=== PATIENT | male | born 1950 | race Caucasian/White ===

== ENCOUNTER 2019-11-04 10:12 | Outpatient (CLI) | payer OTHER, SELFPAY ==
--- NOTE | 2019-11-04 10:19 | USCV_ITS ---
Nash Cox Age: 69 Gender: M : 1950 Exam Date: 11/04/2019 10:32 Ordering Phys: Mally Neal MD Technologist: Katelyn Traore [place]am [place] [facility] [place]: SCREENING HISTORY: Screening Diameter (cm) AP x Transverse x Length Velocity (cm/s) Waveform Prox Aorta: 1.97 x 1.97 x 117.20 Mid Aorta: 1.90 x 1.61 x 89.40 Distal Aorta: 1.76 x 1.61 x 134.70 Right Iliac Prox: 1.18 x 1.17 x 131.50 Left Iliac Prox: 1.05 x 1.12 x 151.70 Stent Prox Landing x x Aneurysmal Sac Max x x Lt Lat Sac Dim Rt Lat Sac Dim Stent Dist Landing x x Right Iliac Stent x x Left Iliac Stent x x Right Renal Art Left Renal Art FINDINGS: Normal abdominal aortic dimensions Moderate diffuse plaques in the abdominal aorta Moderate plaques in the proximal common iliac arteries bilaterally CONCLUSIONS 1. No evidence of any abdominal aortic aneurysm 2. Moderate diffuse plaques in the abdominal aorta. 3. Moderate plaques at the proximal common iliac arteries bilaterally Dr Joann Kamara MD FAC (Electronically Signed) Final Date: 04 November 2019 17:28 S
--- NOTE | 2019-11-04 11:00 | USCV_ITS ---
Nash Cox Age: 69 Gender: M : 1950 Exam Date: 11/04/2019 10:47 Ordering Phys: Joann Kamara MD ([email or web address]) Technologist: Katelyn Traore [place] [facility] [place]: RECHECK MV REPLACEMENT AND AI AND EF BP: 130 / 55 HR: 79 Rhythm: Sinus Technical Quality: MEASUREMENTS (Male / Female) Normal Values 2D ECHO LV Diastolic Diameter PLAX 7.0 cm 4.2 - 5.9 / 3.9 - 5.3 cm LV Systolic Diameter PLAX 6.2 cm LV Chamber Size 5.4 cm IVS Diastolic Thickness 1.4 cm 0.6 - 1.0 / 0.6 - 0.9 cm IVS Systolic Thickness 1.5 cm LVPW Diastolic Thickness 1.5 cm 0.6 - 1.0 / 0.6 - 0.9 cm LVPW Systolic Thickness 1.7 cm RV Chamber Size 3.5 cm LVOT Diameter 2.1 cm LV Ejection Fraction 2D Teich 23.3 % LV Ejection Fraction MOD 2C -4.6 % LV Ejection Fraction 2C AL -7.4 % LA Diameter 4.5 cm LA Width 5.7 cm LA Height 5.6 cm RA Width 3.6 cm RA Height 5.5 cm Aorta at Sinotubular Diameter 4.4 cm M-MODE LV Diastolic Diameter MM 7.6 cm 4.2 - 5.9 / 3.9 - 5.3 cm LV Systolic Diameter MM 6.1 cm LV Ejection Fraction MM Teich 38.4 % IVS Diastolic Thickness MM 1.4 cm 0.6 - 1.0 / 0.6 - 0.9 cm IVS Systolic Thickness MM 1.7 cm LVPW Diastolic Thickness MM 1.1 cm 0.6 - 1.0 / 0.6 - 0.9 cm LVPW Systolic Thickness MM 1.7 cm RV Diastolic Diameter MM 1.6 cm Aortic Annulus Diameter 4.7 cm LA Ao Ratio MM 1.0 DOPPLER AV Peak Velocity 256.0 cm/s LVOT Peak Velocity 118.0 cm/s AV Area Cont Eq vti 1.1 cm squared AV Area Cont Eq pk 1.6 cm squared MV Area PHT 6.9 cm squared Mitral E to A Ratio 1.1 MV E' Velocity 163.0 cm/s TR Peak Velocity 237.7 cm/s TR Peak Gradient 22.6 mmHg TR Mean Velocity 170.9 cm/s TR Mean Gradient 13.1 mmHg TR Velocity Time Integral 62.6 cm TV Peak E Velocity 65.0 cm/s Right Atrial Pressure 3.0 mmHg Pulmonary Artery Systolic Pressu 25.6 mmHg FINDINGS Left Ventricle Moderately dilated LV cavity. Diffuse hypokinesia of the left ventricle. LV ejection fraction around 25% Right Ventricle Appears to be of normal size ejection fraction Right Atrium Mildly dilated Left Atrium Moderately increased left atrial size. Mitral Valve Bioprosthetic valve at the mitral position appears to be well- seated Aortic Valve Thickened aortic valve. Moderately severe aortic regurgitation. Appears to have multiple regurgitant jets Tricuspid Valve Mild tricuspid valve regurgitation. Pulmonic Valve Pulmonic valve not well visualized. Pericardium No pericardial effusion. Aorta Normal aortic annulus size. CONCLUSIONS 1. Moderately dilated LV cavity with an ejection fraction of 25%. 2. Diffuse hypokinesia left ventricle. 3. Moderately dilated left atrium and mildly dilated right atrium. 4. Bioprosthetic valve the mitral position appears to be well- seated. Mitral valve area by pressure half-time was 6.9 cm squared 5. Thickened aortic valve with moderately severe aortic regurgitation 4. Mild tricuspid valve regurgitation. 5. Estimated pulmonary artery peak systolic pressure of 26 mmHg There is no pericardial effusion. There are no intracardiac masses. Compared to the study from 04/04/2015, the LV cavity appears to be more dilated with worsening of the LV systolic function, from 40 % to 25%; the mitral valve replacement is new. Dr Joann Kamara MD FAC (Electronically Signed) Final Date: 04 November 2019 15:25 S
== END 2019-11-04 10:13 | disposition home or self-care (01) ==
LOC: RAD 10:16
PROVIDERS: PCP Family Medicine; Visit Provider Family Medicine
DX: I35.1 Nonrheumatic aortic (valve) insufficiency (principal); Z95.2 Presence of prosthetic heart valve; I07.1 Rheumatic tricuspid insufficiency; Z01.89 Encounter for other specified special examinations
CPT/HCPCS: 76706; 93306

== ENCOUNTER → 2019-12-22 14:52 | Outpatient (BNVA) | payer MEDICARE, SELFPAY | PROVIDERS: PCP Family Medicine; Visit Provider Internal Medicine Cardiovascular Disease | DX: R06.02 Shortness of breath (principal); I48.11 Longstanding persistent atrial fibrillation; I42.0 Dilated cardiomyopathy | CPT/HCPCS: 80048; 80162; 83880 ==

== ENCOUNTER → 2020-01-19 11:24 | Outpatient (BNVA) | payer MEDICARE, SELFPAY | PROVIDERS: PCP Family Medicine; Visit Provider Internal Medicine Cardiovascular Disease | DX: I27.20 Pulmonary hypertension, unspecified (principal); I35.1 Nonrheumatic aortic (valve) insufficiency; I42.0 Dilated cardiomyopathy; R07.9 Chest pain, unspecified | CPT/HCPCS: 80048; 83880 ==

== ENCOUNTER → 2020-02-02 11:23 | Outpatient (BNVA) | payer MEDICARE, OTHER, SELFPAY | PROVIDERS: PCP Family Medicine; Visit Provider Internal Medicine Cardiovascular Disease | DX: I27.20 Pulmonary hypertension, unspecified (principal); R07.9 Chest pain, unspecified | CPT/HCPCS: 80048; 83880 ==

== ENCOUNTER 2020-11-30 15:41 | Outpatient (CLI) | payer OTHER, SELFPAY ==
--- NOTE | 2020-11-30 15:45 | USCV_ITS ---
Nash Cox Age: 70 Gender: M : 1950 Exam Date: 11/30/2020 16:06 Ordering Phys: Joann Kamara MD ([email or web address]) Technologist: Gavi Davidson Exam Location: [facility] [place] Indication: other chest pain, prosthetic MV BP: 130 / 67 HR: 87 Rhythm: Atrial fibrillation Technical Quality: Adequate MEASUREMENTS (Male / Female) Normal Values 2D ECHO LV Diastolic Diameter PLAX 4.8 cm 4.2 - 5.9 / 3.9 - 5.3 cm LV Systolic Diameter PLAX 4.3 cm IVS Diastolic Thickness 1.6 cm 0.6 - 1.0 / 0.6 - 0.9 cm IVS Systolic Thickness 1.5 cm LVPW Diastolic Thickness 2.0 cm 0.6 - 1.0 / 0.6 - 0.9 cm LVPW Systolic Thickness 2.1 cm LVOT Diameter 2.3 cm LV Ejection Fraction 2D Teich 21.2 % LV Ejection Fraction MOD 2C 60.2 % LV Ejection Fraction 2C AL 60.6 % LA Diameter 4.6 cm LA Width 5.5 cm LA Height 6.5 cm RA Width 3.8 cm RA Height 6.1 cm Aorta at Sinotubular Diameter 4.2 cm DOPPLER AV Peak Velocity 175.7 cm/s LVOT Peak Velocity 145.0 cm/s AV Area Cont Eq vti 3.4 cm squared AV Area Cont Eq pk 3.4 cm squared MV Peak Velocity 258.0 cm/s MV Area PHT 4.4 cm squared Mitral E to A Ratio 3.1 MV E' Velocity 143.5 cm/s Mitral E to MV E' Ratio 39.0 Mitral E to LV E' Lateral Ratio 28.8 Mitral E to LV E' Septal Ratio 60.2 TR Peak Velocity 217.7 cm/s TR Peak Gradient 19.0 mmHg Right Atrial Pressure 3.0 mmHg Pulmonary Artery Systolic Pressu 22.0 mmHg PV Peak Velocity 79.0 cm/s RV Acceleration Time 0.1 s RV Ejection Time 0.3 s RV AcT/ET 0.4 FINDINGS Left Ventricle Diffuse hypokinesia of the left ventricle with ejection fraction of around 30 to 35%(visual)_ Right Ventricle The right ventricle is normal in size and function. Right Atrium The right atrium is normal in size. Left Atrium Moderately increased left atrial size. Mitral Valve The bioprosthetic valve in the mitral position appears to be well-seated. Aortic Valve Mxmtczpg-oz-yuhrda aortic valve regurgitation. Tricuspid Valve Vydr-rg-solokwpt tricuspid valve regurgitation. Pulmonic Valve Trace pulmonary valve regurgitation. Pericardium Normal pericardium without effusion. Aorta Normal ascending aorta dimension. CONCLUSIONS Diffuse hypokinesia of the left ventricle with ejection fraction of around 30 to 35%(visual)_. Moderately increased left atrial size. The bioprosthetic valve in the mitral position appears to be well-seated. Mitral valve area by pressure half-time was 4.4 cm squared Fzvlfnzj-po-woxget aortic valve regurgitation. Trace pulmonary valve regurgitation. Zpgd-no-rcnhggap tricuspid valve regurgitation. Estimated pulmonary artery peak systolic pressure of 22 mmHg There is no pericardial effusion. There are no intracardiac masses. Compared to the study from 11/04/2019, there may be a slight improvement in the LV ejection fraction Dr Joann Kamara MD FAC (Electronically Signed) Final Date: 30 November 2020 19:33 S
== END 2020-11-30 15:42 | disposition home or self-care (01) ==
LOC: RAD 15:46
PROVIDERS: PCP Family Medicine; Visit Provider Family Medicine
DX: R07.89 Other chest pain (principal); I42.0 Dilated cardiomyopathy; Z95.2 Presence of prosthetic heart valve; I08.2 Rheumatic disorders of both aortic and tricuspid valves
CPT/HCPCS: 93306

== ENCOUNTER → 2021-04-11 10:45 | Outpatient (BNVA) | payer MEDICARE, SELFPAY | PROVIDERS: PCP Family Medicine; Visit Provider Internal Medicine Cardiovascular Disease | DX: T46.0X1A Poisoning by cardiac-stimulant glycosides and drugs of similar action, accidental (unintentional), initial encounter (principal); I27.20 Pulmonary hypertension, unspecified; I35.1 Nonrheumatic aortic (valve) insufficiency; I42.0 Dilated cardiomyopathy | CPT/HCPCS: 80162 ==

== ENCOUNTER → 2022-05-01 11:21 | Outpatient (BNVA) | payer MEDICARE, SELFPAY | PROVIDERS: PCP Family Medicine; Visit Provider Nurse Practitioner Family | DX: I48.11 Longstanding persistent atrial fibrillation (principal); I42.0 Dilated cardiomyopathy; Z87.891 Personal history of nicotine dependence | CPT/HCPCS: 99214 ==

== ENCOUNTER 2022-10-23 12:37 | Outpatient (CLI) | payer OTHER, SELFPAY ==
--- NOTE | 2022-10-23 12:30 | USCV_ITS ---
Nash Cox Age: 72 Gender: M : 1950 Exam Date: 10/23/2022 12:57 Ordering Phys: Alisa Quinonez Technologist: Uriel Harris [place] [facility] [place]: mitral valve replacement BP: 156 / 60 HR: 73 Rhythm: Other Technical Quality: Adequate MEASUREMENTS (Male / Female) Normal Values 2D ECHO LVOT Diameter 2.2 cm LV Ejection Fraction MOD 2C 32.9 % LV Ejection Fraction 2C AL 30.9 % LA Diameter 5.4 cm LA Width 5.3 cm LA Height 5.8 cm RA Width 3.8 cm RA Height 6.3 cm Aorta at Sinotubular Diameter 2.7 cm IVC Diameter 2.5 cm M-MODE Aortic Annulus Diameter 3.8 cm LA Ao Ratio MM 1.4 DOPPLER AV Peak Velocity 154.0 cm/s LVOT Peak Velocity 146.0 cm/s AV Area Cont Eq vti 3.9 cm squared AV Area Cont Eq pk 3.6 cm squared MV Peak Velocity 214.0 cm/s MV Area PHT 4.6 cm squared Mitral E to A Ratio 2.0 MV E' Velocity 84.0 cm/s Mitral E to MV E' Ratio 22.5 Mitral E to LV E' Lateral Ratio 17.5 Mitral E to LV E' Septal Ratio 31.9 TR Peak Velocity 349.0 cm/s TR Peak Gradient 48.7 mmHg TR Mean Velocity 274.9 cm/s TR Mean Gradient 33.3 mmHg TR Velocity Time Integral 86.2 cm Right Atrial Pressure 8.0 mmHg Pulmonary Artery Systolic Pressu 56.7 mmHg PV Peak Velocity 86.0 cm/s RV Acceleration Time 0.1 s RV Ejection Time 0.2 s RV AcT/ET 0.5 FINDINGS Left Ventricle Diffuse hypokinesia of the left ventricle with an ejection fraction of 32%. Mildly dilated LV cavity Right Ventricle The right ventricle is normal in size and function. Right Atrium The right atrium is normal in size. Left Atrium Moderately increased left atrial size. Mitral Valve The bioprosthetic valve in the mitral position appears to be well-seated. Valve leaflets appear to be thickened. Trace of mitral regurgitation. The peak gradient across the mitral valve is 18 mmHg with a mean gradient of 8 mmHg Aortic Valve Thickened aortic valve. Moderate aortic regurgitation. The aortic pressure half-time is 452 ms. Tricuspid Valve Mild tricuspid valve regurgitation. Estimated pulmonary artery peak systolic pressure 57 mmHg. Poor TR Doppler signals Pulmonic Valve Mild pulmonary valve regurgitation. Pericardium No pericardial effusion. Aorta Normal ascending aorta dimension. IVC CONCLUSIONS Diffuse hypokinesia of the left ventricle with an ejection fraction of 32%. Moderately increased left atrial size. The bioprosthetic valve in the mitral position appears to be well-seated. Valve leaflets appear to be thickened. Trace of mitral regurgitation. The peak gradient across the mitral valve is 18 mmHg with a mean gradient of 8 mmHg Mildly dilated LV cavity. Thickened aortic valve. Moderate aortic regurgitation. The aortic pressure half-time is 452 ms. Mild tricuspid valve regurgitation. Mild pulmonary valve regurgitation. Moderate pulmonary hypertension with an estimated pulmonary artery peak systolic pressure 57 mmHg There is no pericardial effusion. There are no intracardiac masses. Compared to the previous study from 11/30/2020, the pulmonary hypertension appears to be new. But since the TR Doppler signals are of suboptimal quality, the reliability is questionable Dr Joann Kamara MD [facility] (Electronically Signed) Final Date: 24 October 2022 08:03 S
== END 2022-10-23 12:38 | disposition home or self-care (01) ==
PROVIDERS: PCP Family Medicine; Visit Provider Nurse Practitioner Family
DX: Z95.3 Presence of xenogenic heart valve (principal); I35.1 Nonrheumatic aortic (valve) insufficiency; I42.0 Dilated cardiomyopathy; I48.91 Unspecified atrial fibrillation; I07.1 Rheumatic tricuspid insufficiency; I37.1 Nonrheumatic pulmonary valve insufficiency; I27.20 Pulmonary hypertension, unspecified
CPT/HCPCS: 93306

== ENCOUNTER → 2022-11-06 16:58 | Outpatient (BNVA) | payer BC, SELFPAY | PROVIDERS: PCP Family Medicine; Visit Provider Internal Medicine Cardiovascular Disease | DX: R06.02 Shortness of breath (principal); I50.9 Heart failure, unspecified | CPT/HCPCS: 36415; 80048; 80162; 83880 ==

== ENCOUNTER 2023-02-25 21:23 | Emergency (ER) | payer MEDICARE, SELFPAY ==
[2023-02-25 21:29] VITALS: BP 149/89; PULSE 124; RESP 17; TEMP 36.5; O2SAT 98; BMI 27.3
--- NOTE | 2023-02-25 21:56 | ED_ITS ---
HPI - Dental/Oral General: Chief complaint: Dental/Oral Stated complaint: bleeding post dental work Time Seen by Provider: 02/25/23 21:43 History of Present Illness: 72-year-old male presents to the emergen cy department with complaints of bleeding from a dental procedure. He states that approximately 230 today he had a tooth pulled in the right upper front of his mouth. He states he takes Pradaxa and stopped it 48 hours ago but he is continued to bleed since the procedure. He states he has attempted to put pressure on it without successful control of the bleeding. He denies numbness or tingling to the area. Review of Systems General: Reports: 10 or more systems reviewed and unremarkable except in HPI and below ENMT: Reports: bleeding gums and dental pain PFSH ED PFSH: Medical History Aortic regurgitation Atrial fibrillation Cardiomyopathy, dilated, nonischemic Chest pain CHF (congestive heart failure) Gynecomastia Iron deficiency anemia Osteoarthritis Pulmonary hypertension Surgical History H/O left inguinal hernia repair H/O mitral valve replacement History of mitral valve replacement with bioprosthetic valve Patient had open heart surgery and mitral valve replacement by a porcine valve on 13 April 2015 at the [facility] in [place]. History of right hip replacement Status post right knee replacement Family History Mother Cancer Dementia Grandfather Lung disease Brother Stroke Denies family history of Diabetes CAD (coronary artery disease) Clotting disorder Chronic kidney disease (CKD) Suicide Anesthesia complication Bleeding disorder Social History Smoking and tobacco/nicotine status: former use of tobacco/nicotine Alcohol intake: current Alcohol intake frequency: holidays/special occasions only Substance/Drug Use: never Physical Exam Narrative: EXAM NARRATIVE: Constitutional: the patient appears well nourished and of normal development. Vital signs as documented. No acute distress at present. Alert and oriented-to person, place, time and situation. Head, eyes, ears, nose, mouth, throat: Normocephalic, atraumatic. Pupils-equal, round, reactive to light. No scleral icterus. Normal-appearing external ears. Normal appearing nasal turbinates, no drainage. No obvious oral lesions, posterior oropharynx without erythema or exudates. Right upper front tooth post extraction does appear to have bleeding from the socket. Neck: Supple, trachea is midline, no lymphadenopathy, no jugular venous distension, thyromegaly, or carotid bruits. Carotid upstrokes are brisk bilaterally. Lungs: clear to auscultation to all lung ivory. Symmetrical rise and fall of chest, no obvious signs of increased work of breathing at present. Cardiac: Regular rate and rhythm, positive S1, S2. No murmurs, rubs or gallops that I can appreciate Abdomen: Soft, non-tender to palpation, normal active bowel sounds to all quadrants. No palpable masses, no organomegaly and abdominal bruits. Extremities: 2+ pulses in the upper extremities that are equal bilaterally, 2+ pulses in the lower extremities that are equal bilaterally. Non-edematous. Moves all extremities well, sensation to all extremities are noted. Skin: Warm, dry, intact. Course Vital Signs: Vital signs: Vital Signs Temperature 97.7 F 02/25/23 21:29 Pulse Rate 119 H 02/26/23 00:39 Respiratory Rate 16 02/26/23 00:39 Blood Pressure 156/90 02/26/23 00:39 Pulse Oximetry 95 02/26/23 00:39 Oxygen Delivery Me thod Room Air 02/26/23 00:39 MDM - Dental/Oral Medical Decision Making Physical exam completed and documented, I will provide direct pressure and attempt to achieve homeostasis. We will reevaluate. No radiology studies performed this visit Discharge Plan Discharge Patient Disposition: Home Clinical Impression: Post-op bleeding Qualifiers: Surgical complication system/body Area: subcutaneous tissue Condition: Stable Prescriptions: No Action colchicine 0.6 mg tablet 0.6 mg PO DAILY PRN (Reason: flare up of gout) Qty: 30 0RF trazodone 50 mg tablet 50 mg PO QDAY Pradaxa 75 mg capsule 75 mg PO BID furosemide 40 mg tablet 40 mg PO BID Qty: 180 3RF digoxin 125 mcg (0.125 mg) tablet 125 mcg PO DIRECTED Qty: 90 3RF Rx Instructions: Take 1 tab by mouth daily Mondays thru Fridays, none on Saturdays or Sundays. carvedilol [Coreg] 6.25 mg tablet 6.25 mg PO BID Qty: 180 3RF Entresto 24-26 mg tablet 1.5 tab PO BID Qty: 270 3RF Rx Instructions: Take 1 & 1/2 tablets by mouth twice daily. Discharge Orders: Discharge ED (Routine); Ordered 02/26/23 Ordered By: Von Orozco Discharge Diet: Advance as tolerated Discharge Activity: Resume usual activity Patient Instructions: Opioid Safety, Pain Management Activity Restrictions/Additional Instructions: Activity Restrictions/Additional Instructions: Thank you for choosing [facility] for your healthcare needs today. Please realize that you were seen in the Emergency Department and that we are providing you with an emergency medical screening exam and this may not be a complete and all inclusive of all the testing and or medical work-up that you may need to determine your ailment or severity of your illness. It is very important that you follow-up as instructed with your Primary care provider or Specialist for additional evaluation and to discuss your medical treatment plan. You may return to the Emergency Department should you have concerns or if your condition changes or worsens in any way. Coding Level of Care Code ED Vice President Of Procurement for Gilles Aponte
[2023-02-26] MEDS: thrombin 5,000 unit SDV 5000 UNIT TOPICAL (00:35)
[2023-02-26 00:39] VITALS: BP 156/90; PULSE 119; RESP 16; O2SAT 95
== END 2023-02-26 00:47 | disposition home or self-care (01) ==
PROVIDERS: Emergency Provider Internal Medicine
DX: K91.840 Postprocedural hemorrhage of a digestive system organ or structure following a digestive system procedure (principal); Z87.891 Personal history of nicotine dependence; I42.8 Other cardiomyopathies; I50.9 Heart failure, unspecified; K08.409 Partial loss of teeth, unspecified cause, unspecified class
CPT/HCPCS: 99283

== ENCOUNTER 2024-02-18 10:12 | Emergency (ER) | payer OTHER, MEDICARE, SELFPAY ==
[2024-02-18] VITALS (8 sets, daily range): BP systolic 124–155; BP diastolic 66–83; PULSE 85–103; RESP 12–20; TEMP 36.4; O2SAT 94–96; BMI 21.2
--- NOTE | 2024-02-18 10:16 | XR_ITS ---
WS: [id number] XR chest 1V portable [id number] REASON FOR EXAM: cp FINDINGS: No recent examination subsequent to 2016. Sternal sutures. Moderate tortuosity and ectasia of the thoracic aorta. Significant cardiomegaly. Prominence of the hilar regions which may be right and left pulmonary artery enlargement. There appears to be elevation of the left mainstem bronchus which may indicate enlarged left atrium. Extensive reticular interstitial lung opacities in both lower lung ivory which may be chronic, howev er acute process superimposed on abnormal lung cannot be excluded. The right costophrenic angle and left costophrenic angle are blunted suggesting pleural effusions. XR/XR chest 1V portable [id number] IMPRESSION: Possible pulmonary artery hypertension and left atrial enlargement. Possible ac [place] on chronic congestive heart failure.
--- NOTE | 2024-02-18 10:21 | ECG_ITS ---
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 Measurements Intervals [place] Rate: 102 P: 0 AL: 0 QRS: -33 QRSD: 133 T: 128 QT: 370 QTc: 484 Interpretive Statements ATRIAL FIBRILLATION WITH RAPID VENTRICULAR RESPONSE LEFT AXIS DEVIATION [QRS AXIS < -30] INTRAVENTRICULAR CONDUCTION DELAY [130+ ms QRS DURATION] MODERATE VOLTAGE CRITERIA FOR LVH, CONSIDER NORMAL VARIANT [MEETS CRITERIA IN ONE OF: R(aVL), S(V1), R(V5), R(V5/V6)+S(V1)] POSSIBLE ANTERIOR MYOCARDIAL INFARCTION , OF INDETERMINATE AGE [30 ms Q WAVE IN V3/V4, OR R < 0.2 mV IN V4] Compared to ECG 11/06/2017 13:12:28 Left-axis deviation now present Intraventricular conduction delay now present ST (T wave) deviation no longer present Myocardial infarct finding still present Electronically Signed On 02-18-2024 14:40:14 DEAN OF ADMISSIONS by Rad Blackman M.D. [email or web address]
[2024-02-18 10:34] LABS: Basophils % 0.6 %; Eosinophils # 0.1 10^3/uL (0.0-0.8); Hematocrit 39.9 % (37-53); Lymphocytes # 0.8 10^3/uL (0.8-4.8); Lymphocytes % 11.4 %; Mean Corpuscular HGB Conc 31.6 g/dL (30-55); Mean Corpuscular Hemoglobin 29.4 pg (27-33); Mean Corpuscular Volume 93.2 fl (82-101); Mean Platelet Volume 9.7 fL (7.4-10.4); Monocytes # 0.5 10^3/uL (0.2-0.9); Monocytes % 7.1 %; Neutrophils # 5.73 10^3/uL (1.8-7.7); Neutrophils % 79.3 %; Nucleated Red Blood Cells % 0 %; Platelet Count 233 10^3/cmm (157-399); Red Blood Count 4.28 10^6/uL (3.85-5.65); Red Cell Distribution Width 14.6 % (12.1-15.1); White Blood Count 7.21 10^3/uL (3.29-11.43)
[2024-02-18 11:08] LABS: Alanine Aminotransferase 6 U/L (0-41); Albumin Level 3.7 g/dL (3.5-5.2); Alkaline Phosphatase 93 U/L (40-130); Anion Gap 15.6 (5-19); Aspartate Amino Transferase 10 U/L (0-40); Blood Urea Nitrogen 22 mg/dL (8-23); Calcium 9.3 mg/dL (8.5-10.5); Carbon Dioxide 25 mmol/L (22-29); Chloride 102 mmol/L (98-107); Creatinine Clr Calc Pharmacy 50.5267; Globulin 3.4 g/dL (1.3-4.6); Glucose 136 mg/dL (65-115); Lipase 11 U/L (13-60); NT Pro B Type Natriuretic Pept 34156 pg/mL (0-450); Osmolality Calculated 291 mOsm/kg (285-295); Potassium 4.6 mmol/L (3.5-5.1); Sodium 138 mmol/L (136-145); Total Bilirubin 0.9 mg/dL (0.15-1.2); Total Protein 7.1 g/dL (6.6-8.7)
--- NOTE | 2024-02-18 12:09 | ECG_ITS ---
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 Measurements Intervals [place] Rate: 85 P: 0 MS: 0 QRS: -34 QRSD: 142 T: 141 QT: 411 QTc: 490 Interpretive Statements ATRIAL FIBRILLATION LEFT AXIS DEVIATION [QRS AXIS < -30] LEFT BUNDLE BRANCH BLOCK [120+ ms QRS DURATION, 80+ ms Q/S IN V1/V2, 85+ ms R IN I/aVL/V5/V6] Compared to ECG 02/18/2024 10:21:32 Left bundle-branch block now present Intraventricular conduction delay no longer present Myocardial infarct finding no longer present Electronically Signed On 02-18-2024 14:45:01 [employer] by Rad Blackman M.D. [id number]
[2024-02-18 12:16] LABS: Troponin(5th) Baseline 75 ng/L (0-15)
--- NOTE | 2024-02-18 12:17 | ED_ITS ---
HPI - Chest Pain 2 General: Chief Complaint: Chest Pain Stated Complaint: cp,sob Time Seen by Provider: 02/18/24 12:17 History of Present Illness: 73-year-old male [facility] complaining of chest pain and shortness of breath of the last few days. Patient has a history of atrial fibrillation. He is on anticoagulation in addition he is on carvedilol and digoxin Associated symptoms: Reports dyspnea; Deny abdominal pain or fever(s) Related Data Home Medications Medication Instructions Recorded Confirmed dabigatran etexilate 75 mg capsule 75 mg PO BID 03/31/19 02/18/24 (Pradaxa) gabapentin 300 mg capsule 300 mg PO BID 02/18/24 02/18/24 trazodone 100 mg tablet 50 mg PO BEDTIME 02/18/24 02/18/24 Previous Rx's Medication Instructions Recorded sacubitril 24 mg-valsartan 26 mg 1.5 tab PO BID #270 tabs 11/11/22 tablet (Entresto) furosemide 40 mg tablet 40 mg PO BID #180 tabs 03/23/23 digoxin 125 mcg (0.125 mg) tablet 125 mcg PO DIRECTED #90 tabs 04/30/23 carvedilol 6.25 mg tablet (Coreg) 6.25 mg PO BID #180 tabs 08/17/23 buspirone 7.5 mg tablet 7.5 mg PO BID #30 tabs 02/18/24 hydroxyzine HCl 25 mg tablet 25 mg PO Q6H PRN Anxiety/sleep #10 02/18/24 tabs Allergies Allergy/AdvReac Type Severity Reaction Status Date / Time meperidine [From Demerol] Allergy Unknown unknown Verified 02/18/24 10:29 Review of Systems 2 Const: Denies: fever(s) or chills Card: Reports: chest pain Resp: Reports: dyspnea GI: Denies: abdominal pain : Denies: dysuria, urinary frequency or urinary urgency Musc: Denies: neck pain or back pain Skin/Breast: Denies: rash PFSH ED 2 PFSH: Medical History Aortic regurgitation Pulmonary hypertension CHF (congestive heart failure) Gynecomastia Iron deficiency anemia Cardiomyopathy, dilated, nonischemic Osteoarthritis Atrial fibrillation Chest pain Surgical History History of mitral valve replacement with bioprosthetic valve Patient had open heart surgery and mitral valve replacement by a porcine valve on 13 April 2015 at the [facility] in [place]. H/O mitral valve replacement H/O left inguinal hernia repair Status post right knee replacement History of right hip replacement Family History Mother Cancer Dementia Grandfather Lung disease Brother Stroke Denies family history of Diabetes CAD (coronary artery disease) Clotting disorder Chronic kidney disease (CKD) Suicide Anesthesia complication Bleeding disorder Social History Smoking and tobacco/nicotine status: former use of tobacco/nicotine Alcohol intake: current Alcohol intake frequency: holidays/special occasions only Substance/Drug Use: never Physical Exam 2 Const: COMMON NORMALS: no acute distress GENERAL APPEARANCE: cooperative and comfortable ORIENTATION/CONSCIOUSNESS: Yes awake, Yes oriented to person, Yes oriented to place and Yes oriented to time HENMT: COMMON NORMALS: normocephalic, atraumatic and hearing grossly normal bilaterally HEAD & SCALP: normocephalic and atraumatic Resp: COMMON NORMALS: normal respiratory effort, No retractions, No use of accessory muscles and clear to auscultation bilaterally AUSCULTATION: clear to auscultation bilaterally Cardio: COMMON NORMALS: regular rate, regular rhythm and No murmurs present (Cardio) RATE: regular rate RHYTHM: regular rhythm GI: COMMON NORMALS: Soft to palpation and No hepatosplenomegaly present A USCULTATION: Yes normoactive bowel sounds PALPATION: Yes Soft to palpation, No Tenderness to palpation present (GI), No Guarding due to palpation present (GI) and Yes No hepatosplenomegaly present Extremity: COMMON NORMALS: normal to inspection, capillary refill normal, no clubbing, cyanosis or edema, no calf tenderness and no pedal edema Neuro: SENSORIUM/ORIENTATION: Yes oriented to person, Yes oriented to place and Yes oriented to time Skin: COMMON NORMALS: no rashes or lesions noted GENERAL SKIN EXAM: no rashes or lesions noted Course 2 Vital Signs: Vital signs: Vital Signs Temperature 97.5 F L 02/18/24 10:15 Pulse Rate 86 02/18/24 14:48 Respiratory Rate 14 02/18/24 14:00 Blood Pressure 148/76 02/18/24 14:48 Pulse Oximetry 95 02/18/24 14:48 Oxygen Delivery Me thod Room Air 02/18/24 10:15 MDM - Chest Pain Medical Decision Making No acute findings and EKG patient does appear to be fluid overloaded BNP is markedly elevated he does not have any real orthopnea though when I evaluate him he is laying flat on the exam table without significant worsening of shortness of breath and his sats are in the 96 to 97% range. Patient was given Lasix 40 mg IV had good diuresis states he is feeling somewhat better. His cardiac enzymes trended negative. Discharge patient home on his Lasix increased to 60 mg twice daily for the next 3 days. Should follow-up with his primary care doctor early next week. He is also given hydroxyzine to use as needed as well as BuSpar 7.5 twice daily for anxiety and difficulty with sleep. Follow-up with primary care doctor. Medical Records I reviewed the patient's medical records. Lab Data I reviewed the patient's lab results. 02/18/24 10:27 02/18/24 10:27 Radiology Impressions Chest X-Ray 02/18/24 10:16 IMPRESSION: Possible pulmonary artery hypertension and left atrial enlargement. Possible acute on chronic congestive heart failure. Laboratory Results WBC 7.21 10^3/uL (3.29-11.43) 02/18/24 10:27 RBC 4.28 10^6/uL (3.85-5.65) 02/18/24 10:27 Hgb 12.60 g/dL (11.27-16.99) 02/18/24 10:27 Hct 39.9 % (37-53) 02/18/24 10:27 MCV 93.2 fl (82-101) 02/18/24 10:27 MCH 29.4 pg (27-33) 02/18/24 10:27 MCHC 31.6 g/dL (30-55) 02/18/24 10:27 RDW 14.6 % (12.1-15.1) 02/18/24 10:27 Plt Count 233 10^3/cmm (157-399) 02/18/24 10:27 MPV 9.7 fL (7.4-10.4) 02/18/24 10:27 Neut % (Auto) 79.3 % 02/18/24 10:27 Lymph % (Auto) 11.4 % 02/18/24 10:27 Emery % (Auto) 7.1 % 02/18/24 10:27 Eos % (Auto) 1.0 % 02/18/24 10:27 Baso % (Auto) 0.6 % 02/18/24 10:27 Neut # (Auto) 5.73 10^3/uL (1.8-7.7) 02/18/24 10:27 Lymph # (Auto) 0.8 10^3/uL (0.8-4.8) 02/18/24 10:27 Emery # (Auto) 0.5 10^3/uL (0.2-0.9) 02/18/24 10:27 Eos # (Auto) 0.1 10^3/uL (0.0-0.8) 02/18/24 10:27 Baso # (Auto) 0.0 10^3/uL (0.0-0.1) 02/18/24 10:27 Nucleated RBC % (auto) 0 % 02/18/24 10: Nucleated RBCs # 0.0 /100WBC 02/18/24 10:27 PT 19.60 SECONDS (12.1-14.9) H 02/18/24 10:27 INR 1.60 (0.8-1.2) H 02/18/24 10:27 Sodium 138 mmol/L (136-145) 02/18/24 10:27 Potassium 4.6 mmol/L (3.5-5.1) 02/18/24 10:27 Chloride 102 mmol/L (98-107) 02/18/24 10:27 Carbon Dioxide 25 mmol/L (22-29) 02/18/24 10:27 Anion Gap 15.6 (5-19) 02/18/24 10:27 BUN 22 mg/dL (8-23) 02/18/24 10:27 Creatinine 1.3 mg/dL (0.7-1.2) H 02/18/24 10:27 GFR Calculation Not Reportable 02/18/24 10:27 Glucose 136 mg/dL (65-115) H 02/18/24 10:27 Calculated Osmolality 291 mOsm/kg (285-295) 02/18/24 10:27 Calcium 9.3 mg/dL (8.5-10.5) 02/18/24 10:27 Total Bilirubin 0.9 mg/dL (0.15-1.2) 02/18/24 10:27 AST 10 U/L (0-40) 02/18/24 10:27 ALT 6 U/L (0-41) 02/18/24 10:27 Alkaline Phosphatase 93 U/L (40-130) 02/18/24 10:27 Troponin T Baseline 75 ng/L (0-15) H 02/18/24 10:27 Troponin T 120 Minute 69.43 ng/L (0-15) H 02/18/24 12:40 Delta Troponin T -5.57 ABS# (0-10) L 02/18/24 12:40 NT-Pro-B Natriuret Pep 20731 pg/mL (0-450) H 02/18/24 10:27 Total Protein 7.1 g/dL (6.6-8.7) 02/18/24 10:27 Albumin 3.7 g/dL (3.5-5.2) 02/18/24 10:27 Globulin 3.4 g/dL (1.3-4.6) 02/18/24 10:27 Lipase 11 U/L (13-60) L 02/18/24 10:27 Digoxin 1.2 ng/mL (0.6-1.2) 02/18/24 10:27 All radiology interpretation(s) finalized by discharge Discharge Plan Discharge Patient Disposition: Home Clinical Impression: Congestive heart failure (CHF), Cardiomyopathy, dilated, nonischemic Atrial fibrillation Qualifiers: Atrial fibrillation type: longstanding persistent Qualified Code(s): I48.11 - Longstanding persistent atrial fibrillation Condition: Stable Prescriptions: New hydroxyzine HCl 25 mg tablet 25 mg PO Q6H PRN (Reason: Anxiety/sleep) Qty: 10 0RF buspirone 7.5 mg tablet 7.5 mg PO BID Qty: 30 0RF Discontinued hydroxyzine HCl 25 mg Tablet 25 mg PO DAILY PRN (Reason: Anxiety) No Action Pradaxa 75 mg capsule 75 mg PO BID Entresto 24-26 mg tablet 1.5 tab PO BID Qty: 270 3RF furosemide 40 mg tablet 40 mg PO BID Qty: 180 3RF digoxin 125 mcg (0.125 mg) tablet 125 mcg PO DIRECTED Qty: 90 3RF Rx Instructions: Take 1 tablet by mouth daily on Thursday through Thursday, none on Thursday or Thursday. carvedilol [Coreg] 6.25 mg tablet 6.25 mg PO BID Qty: 180 3RF trazodone 100 mg tablet 50 mg PO BEDTIME gabapentin 300 mg Capsule 300 mg PO BID Discharge Orders: Discharge ED (Routine); Ordered 02/18/24 Ordered By: Fortino Murrieta Referrals: Mally Neal MD [Primary Care Provider] - Discharge Diet: Cardiac and Low Salt Discharge Activity: Increase activity as tolerated Patient Instructions: Opioid Safety, Pain Management Activity Restrictions/Additional Instructions: Thank you for choosing [facility] for your healthcare needs today. It is very important that you follow up as instructed or that you return to the Emergency Department should you have concerns or if your condition changes or worsens in any way. You were seen today with complaints of shortness of breath as well as anxiety. Your cardiac enzymes were negative there is no acute changes on your EKG. Laboratory work shows that there is some fluid overload however your chest x-ray did not show significant amount of fluid buildup in the lungs. You are given IV dose of Lasix in the emergency room which did have good effect. Your oxygen sat is normal even when you are lying down. Will recommend you increase your Lasix to 1-1/2 tablets twice a day for the next 3 days and follow-up with your primary care doctor you should begin this tomorrow. We gave you buspirone 7 and half milligrams 1 tablet twice a day for anxiety and you can take hydroxyzine 25 mg every 6 hours as needed for acute anxiety and to help with sleep at night. You should also take the trazodone that you were previously prescribed at bedtime to help with sleep. Follow-up with your doctor within the next 4 to 5 days Coding Level of Care Code ED Geologist for Gilles Aponte
--- NOTE | 2024-02-18 12:19 | PC.PHAR ---
[facility] is [facility] 02/18/24 12:19pm
[2024-02-18] MEDS: FUROsemide 10 mg/mL SDV 4mL 40 MG IVP (12:39)
[2024-02-18 13:07] LABS: Troponin 5 2HR 69.43 ng/L (0-15)
[2024-02-18 13:14] LABS: Troponin 5 2HR Delta -5.57 ABS# (0-10)
[2024-02-18 15:04] LABS: Digoxin 1.2 ng/mL (0.6-1.2)
== END 2024-02-18 14:49 | disposition home or self-care (01) ==
PROVIDERS: Emergency Medicine; Emergency Provider Family Medicine; PCP Family Medicine
DX: I11.0 Hypertensive heart disease with heart failure (principal); I50.9 Heart failure, unspecified; I48.11 Longstanding persistent atrial fibrillation; Z87.891 Personal history of nicotine dependence
CPT/HCPCS: 36415; 71045; 80053; 80162; 83690; 83880; 84484; 85025; 85610; 93005; 99285; J1940

== ENCOUNTER → 2024-03-03 11:53 | Outpatient (BNVA) | payer OTHER, SELFPAY | PROVIDERS: PCP Family Medicine; Visit Provider Internal Medicine Cardiovascular Disease | DX: R06.02 Shortness of breath (principal) | CPT/HCPCS: 36415; 80048; 83880 ==

== ENCOUNTER 2024-04-15 10:37 | Outpatient (CLI) | payer OTHER, SELFPAY ==
[2024-04-15 11:19] LABS: Anion Gap 15.5 (5-19); Blood Urea Nitrogen 30 mg/dL (8-23); Carbon Dioxide 26 mmol/L (22-29); Chloride 103 mmol/L (98-107); Glucose 134 mg/dL (65-115); Osmolality Calculated 298 mOsm/kg (285-295); Potassium 4.5 mmol/L (3.5-5.1); Sodium 140 mmol/L (136-145)
[2024-04-15 11:35] LABS: NT Pro B Type Natriuretic Pept 10280 pg/mL (0-450)
== END 2024-04-15 10:38 | disposition home or self-care (01) ==
PROVIDERS: PCP Family Medicine; Visit Provider Internal Medicine Cardiovascular Disease
DX: I42.0 Dilated cardiomyopathy (principal); R07.9 Chest pain, unspecified; I48.11 Longstanding persistent atrial fibrillation; I35.1 Nonrheumatic aortic (valve) insufficiency
CPT/HCPCS: 36415; 80048; 83880

== ENCOUNTER 2024-05-16 19:58 | Emergency (ER) | payer OTHER, MEDICARE, SELFPAY ==
--- NOTE | 2024-05-16 20:02 | XRR_ITS ---
PROCEDURE INFORMATION: Exam: XR Chest Exam date and time: 05/16/2024 8:29 PM Age: 74 years old Clinical indication: Shortness of breath; Prior surgery; Surgery date: 6+ months; Surgery type: Open heart; Additional info: SOB TECHNIQUE: Imaging protocol: Radiologic exam of the chest. Views: 1 view. COMPARISON: CR XR chest 1V portable [id number] 02/18/2024 10:46 AM FINDINGS: Lungs: Both lungs demonstrate diffuse interstitial coarsening which is felt to be chronic. No lung mass or infiltrate. Pleural spaces: Unremarkable. No pleural effusion. No pneumothorax. Heart/Mediastinum: Mild cardiomegaly is noted. Bones/joints: Sternal sutures are noted. XR/XR chest 1V portable [id number] IMPRESSION: No acute findings.
[2024-05-16 20:06] VITALS: BP 134/57; PULSE 99; TEMP 36.9; O2SAT 95; BMI 19.8
--- NOTE | 2024-05-16 20:14 | ECG_ITS ---
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1950 Requested By: Tello Javed Order Number: [id number] Reading MD: Measurements Intervals [place] Rate: 107 P: 0 TN: 0 QRS: -33 QRSD: 130 T: 145 QT: 348 QTc: 465 Interpretive Statements ATRIAL FIBRILLATION WITH RAPID VENTRICULAR RESPONSE WITH ABERRANT CONDUCTION OR VENTRICULAR PREMATURE COMPLEXES LEFT AXIS DEVIATION [QRS AXIS < -30] MODERATE VOLTAGE CRITERIA FOR LVH, CONSIDER NORMAL VARIANT [MEETS CRITERIA IN ONE OF: R(aVL), S(V1), R(V5), R(V5/V6)+S(V1)] POSSIBLE ANTERIOR MYOCARDIAL INFARCTION , OF INDETERMINATE AGE [30 ms Q WAVE IN V3/V4, OR R < 0.2 mV IN V4] ST DEVIATION AND MODERATE T-WAVE ABNORMALITY, CONSIDER LATERAL ISCHEMIA [-0.1+ mV T-WAVE IN I/aVL/V5/V6] [email or web address]
--- NOTE | 2024-05-16 22:24 | ED_ITS ---
HPI - COVID General: Chief Complaint: COVID symptoms Stated Complaint: Covid +\Anxiety\A Fib Time Seen by Provider: 05/16/24 22:20 History of Present Illness: Patient presents to the ER with complaints of anxiety weakness and shortness of breath. Patient said this all started when he tested positive for COVID on 05/14/2024. Patient is usually not on oxygen and was requiring some by EMS however when he got here he was satting 95% on room air. Patient also said he had anxiety attack or got little bit of chest pain. Patient said all that is resolved now. Patient did say he was on Xanax in the past and it did help in the past. COVID Results: No Data to Display Related Data Home Medications ?Medication ?Instructions ?Recorded ?Confirmed dabigatran etexilate 75 mg capsule 75 mg PO BID 02/18/24 (Pradaxa) gabapentin 300 mg capsule 300 mg PO BID 02/18/2402/17 trazodone 100 mg tablet 50 mg PO BEDTIME 02/18/24 Previous Rx's ?Medication ?Instructions ?Recorded sacubitril 24 mg-valsartan 26 mg 1.5 tab PO BID #270 t abs 11/11/22 tablet (Entresto) carvedilol 6.25 mg tablet (Coreg) 6.25 mg PO BID #180 tabs 08/17/23 buspirone 7.5 mg tablet 7.5 mg PO BID #30 tabs 02/17 hydroxyzine HCl 25 mg tablet 25 mg PO Q6H PRN Anxiety/ sleep #10 02/18/24 tabs furosemide 40 mg tablet 60 mg (1.5 x 40 mg) PO DAILY #180 03/03/24 tabs digoxin 125 mcg (0.125 mg) tablet 125 mcg PO DIRECT ED #90 tabs 05/10/24 alprazolam 0.25 mg tablet 0.25 mg PO TID PRN anxiety # 14 tabs 05/16/24 Allergies Allergy/AdvReac Type Severity Reaction Status Date / Time meperidine (From Demerol) Allergy Unknown unknown Verified 05/16/24 20:20 Review of Systems General: Reports: 10 or more systems reviewed and unremarkable except in HPI and below [facility] ED PFSH: Medical History Aortic regurgitation Pulmonary hypertension CHF (congestive heart failure) Gynecomastia Iron deficiency anemia Cardiomyopathy, dilated, nonischemic Osteoarthritis Atrial fibrillation Chest pain Surgical History History of mitral valve replacement with bioprosthetic valve Patient had open heart surgery and mitral valve replacement by a porcine valve on 13 April 2015 at the [facility] in [place]. H/O mitral valve replacement H/O left inguinal hernia repair Status post right knee replacement History of right hip replacement Family History Mother Cancer Dementia Grandfather Lung disease Brother Stroke Denies family history of Diabetes CAD (coronary artery disease) Clotting disorder Chronic kidney disease (CKD) Suicide Anesthesia complication Bleeding disorder Social History Smoking and tobacco/nicotine status: never used tobacco/nicotine Alcohol intake: current Alcohol intake frequency: holidays/special occasions only Substance/Drug Use: never Physical Exam Const: COMMON NORMALS: no acute distress, average body habitus, patient oriented x3, no limitations, healthy appearing, alert and well nourished HENMT: COMMON NORMALS: normocephalic, atraumatic, hearing grossly normal bilaterally, external ears normal, Normal external nose present, moist oral mucous membranes and oropharynx normal HEAD & SCALP: normocephalic and atraumatic NOSE: Normal external nose present EXTERNAL EAR: Yes external ears normal Neck/C-Spine: COMMON NORMALS: no JVD Chest: COMMONS NORMALS: normal inspection of the chest and normal palpation of entire chest wall Resp: COMMON NORMALS: normal respiratory effort, No retractions, No use of accessory muscles and clear to auscultation bilaterally AUSCULTATION: clear to auscultation bilaterally Cardio: COMMON NORMALS: no JVD, regular rate, regular rhythm, S1 normal heart sound present, S2 normal heart sound present, No gallops present (Cardio), No clicks present (Cardio), No murmurs present (Cardio) and No rub (Cardio) RATE: regular rate RHYTHM: regular rhythm HEART SOUNDS: S1 normal heart sound present and S2 normal heart sound present GI: COMMON NORMALS: Normal to inspection, nondistended, normoactive bowel sounds present, Soft to palpation, non-tender, No hepatosplenomegaly present and no masses PALPATION: Yes Soft to palpation and Yes No hepatosplenomegaly present Neuro: COMMON NORMALS: patient oriented x3 SENSORIUM/ORIENTATION: Yes alert Course Vital Signs: Vital signs: Vital Signs Temperature 98.5 F 05/16/24 20:06 Pulse Rate 99 05/16/24 20:06 Blood Pressure 134/57 05/16/24 20:06 Pulse Oximetry 95 05/16/24 20:06 Oxygen Delivery Me thod Room Air 05/16/24 20:06 MDM - COVID Medical Decision Making Chest x-ray showed no acute findings, lab work was obtained, patient be given 0.25 mg Xanax here and a prescription to go home on. This should help with patient's anxiety. Patient is instructed to follow-up with his PCP within next 7 days. Lab Data Radiology Impressions Chest X-Ray 05/16/24 20:02 IMPRESSION: No acute findings. No Data to Display All radiology interpretation(s) finalized by discharge Discharge Plan Discharge Patient Disposition: Home Clinical Impression: Anxiety, COVID Condition: Stable Prescriptions: New alprazolam 0.25 mg tablet 0.25 mg PO TID PRN (Reason: anxiety) Qty: 14 0RF No Action Pradaxa 75 mg capsule 75 mg PO BID furosemide 40 mg tablet 60 mg PO DAILY Qty: 180 3RF Entresto 24-26 mg tablet 1.5 tab PO BID Qty: 270 3RF carvedilol [Coreg] 6.25 mg tablet 6.25 mg PO BID Qty: 180 3RF digoxin 125 mcg (0.125 mg) tablet 125 mcg PO DIRECTED Qty: 90 3RF Rx Instructions: Take 1 tablet by mouth daily on Thursday through Thursday, none on Thursday or Thursday. trazodone 100 mg tablet 50 mg PO BEDTIME gabapentin 300 mg Capsule 300 mg PO BID hydroxyzine HCl 25 mg tablet 25 mg PO Q6H PRN (Reason: Anxiety/sleep) Qty: 10 0RF buspirone 7.5 mg tablet 7.5 mg PO BID Qty: 30 0RF Discharge Orders: Discharge ED (Routine); Ordered 05/16/24 Ordered By: Eric Lua Referrals: Mally Neal MD [Primary Care Provider] - 1 week Patient Instructions: COVID-19 (Coronavirus Disease 2019) (ED), Anxiety (ED) Activity Restrictions/Additional Instructions: Your evaluation ER showed your EKG and chest x-ray were benign. Your lab work is still pending. We will call you if we need to change instructions. Otherwise please keep the alprazolam filled and take it as directed. Please follow-up with your family practice physician for further evaluation and treatment. Print Language: Sami Coding Level of Care Code ED Health Sciences Department Chair for Gilles Aponte
[2024-05-16] MEDS: ALPRAZolam 0.5 mg Tablet 0.25 MG PO (22:28)
[2024-05-16 23:07] VITALS: O2SAT 94
== END 2024-05-16 23:09 | disposition home or self-care (01) ==
PROVIDERS: Emergency Provider Emergency Medicine; PCP Family Medicine
DX: F41.9 Anxiety disorder, unspecified (principal); U07.1 COVID-19; I11.0 Hypertensive heart disease with heart failure; I50.9 Heart failure, unspecified
CPT/HCPCS: 71045; 93005; 99285

== ENCOUNTER 2024-05-23 23:30 | Inpatient (IN) | payer OTHER, SELFPAY ==
[2024-05-23 23:36] VITALS: BP 130/50; PULSE 88; RESP 18; TEMP 37.3; O2SAT 98
[2024-05-23 23:39] VITALS: BP 130/50; PULSE 88; RESP 18; O2SAT 98
--- NOTE | 2024-05-23 23:39 | XRR_ITS ---
PROCEDURE INFORMATION: Exam: XR Chest Exam date and time: 05/24/2024 12:56 AM Age: 74 years old Clinical indication: Pain; Chest pressure; Additional info: Chest pain TECHNIQUE: Imaging protocol: Radiologic exam of the chest. Views: 1 view. COMPARISON: CR (CHEST, ) 05/16/2024 8:29 PM FINDINGS: Lungs: There may be minimal central vascular congestion. There is linear scarring or atelectasis involving the right mid and lower lung. Possible patchy infiltrate noted involving the right mid lung. No lobar consolidation is appreciated. Pleural spaces: There is blunting of the right costophrenic angle which may reflect a small amount of pleural fluid or pleural thickening. No pneumothorax is identified. Heart/Mediastinum: The heart is enlarged. Sternal wires are present from prior cardiac surgery. Bones/joints: Unremarkable. XR/XR chest 1V portable [id number] IMPRESSION: 1. Cardiomegaly with possible mild central vascular congestion. 2. Linear scarring or atelectasis involving the right mid and lower lung. 3. Patchy infiltrate or atelectasis involving the right mid lung. 4. Suspect small right pleural effusion.
[2024-05-23 23:53] LABS: Basophils % 0.3 %; Eosinophils % 0.5 %; Lymphocytes # 0.9 10^3/uL (0.8-4.8); Lymphocytes % 14.1 %; Mean Corpuscular HGB Conc 31.3 g/dL (30-55); Mean Corpuscular Hemoglobin 30.5 pg (27-33); Mean Corpuscular Volume 97.5 fl (82-101); Monocytes # 0.4 10^3/uL (0.2-0.9); Monocytes % 6.3 %; Neutrophils # 5.01 10^3/uL (1.8-7.7); Neutrophils % 78.2 %; Nucleated Red Blood Cells % 0 %; Platelet Count 214 10^3/cmm (157-399); Red Blood Count 3.18 10^6/uL (3.85-5.65); Red Cell Distribution Width 21.7 % (12.1-15.1)
--- NOTE | 2024-05-23 23:53 | ECG_ITS ---
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 Measurements Intervals [place] Rate: 89 P: 0 ND: 0 QRS: 68 QRSD: 130 T: 244 QT: 375 QTc: 458 Interpretive Statements ATRIAL FIBRILLATION WITH ABERRANT CONDUCTION OR VENTRICULAR PREMATURE COMPLEXES MODERATE INTRAVENTRICULAR CONDUCTION DELAY [110+ ms QRS DURATION] ST DEVIATION AND MODERATE T-WAVE ABNORMALITY, CONSIDER LATERAL ISCHEMIA [-0.1+ mV T-WAVE IN I/aVL/V5/V6] ST DEVIATION AND MODERATE T-WAVE ABNORMALITY, CONSIDER INFERIOR ISCHEMIA [-0.1+ mV T-WAVE IN II/aVF] Compared to ECG 05/16/2024 20:14:09 Intraventricular conduction delay now present T-wave abnormality now present Possible ischemia now present Left-axis deviation no longer present Myocardial infarct finding no longer present Electronically Signed On 05-27-2024 19:16:38 CDT by Rad Blackman M.D. [email or web address]
[2024-05-23 23:54] VITALS: BP 146/64; PULSE 106; RESP 17; O2SAT 94
--- NOTE | 2024-05-23 23:55 | W.ED.CHESTPA ---
HPI - Chest Pain General: Chief Complaint: ER Hold Stated Complaint: cp Time Seen by Provider: 05/23/24 23:52 History of Present Illness: 74-year-old man with a history of atrial fibrillation on digoxin, chronic anticoagulation on Pradaxa,Aortic regurg, pulmonary hypertension, CHF, who presents emergency room with weakness. He was seen last night and felt to be anxious. He says today he thinks he has COVID. He has had some cough. Family says he is so weak he can barely stand up. That when he does stand up at home he will become tachycardic and almost falls down. EMS reports he had some chest pain and nitros were given. Apparently his O2 sats were little low and he was on 2 L nitrogen when he arrived here. He is in A-fib but rate is controlled currently. Related Data Home Medications ?Medication ?Instructions ?Recorded ?Confirmed dabigatran etexilate 75 mg capsule 75 mg PO BID 03/31/19 02/18/24 (Pradaxa) gabapentin 300 mg capsule 300 mg PO BID 02/18/24 02/18/24 trazodone 100 mg tablet 50 mg PO BEDTIME 02/18/24 02/18/24 Previous Rx's ?Medication ?Instructions ?Recorded sacubitril 24 mg-valsartan 26 mg 1.5 tab PO BID #270 tabs 11/11/22 tablet (Entresto) carvedilol 6.25 mg tablet (Coreg) 6.25 mg PO BID #180 tabs 08/17/23 buspirone 7.5 mg tablet 7.5 mg PO BID #30 tabs 02/18/24 hydroxyzine HCl 25 mg tablet 25 mg PO Q6H PRN Anxiety/sleep #10 02/18/24 tabs furosemide 40 mg tablet 60 mg (1.5 x 40 mg) PO DAILY #180 03/03/24 tabs digoxin 125 mcg (0.125 mg) tablet 125 mcg PO DIRECTED #90 tabs 05/10/24 alprazolam 0.25 mg tablet 0.25 mg PO TID PRN anxiety #14 tabs 05/16/24 Allergies Allergy/AdvReac Type Severity Reaction Status Date / Time meperidine (From Demerol) Allergy Unknown unknown Verified 05/23/24 23:39 Review of Systems Narrative: Constitutional symptoms: Negative except as documented in HPI. Skin symptoms: Negative except as documented in HPI. Eye symptoms: Negative except as documented in HPI. ENMT symptoms: Negative except as documented in HPI. Respiratory symptoms: Negative except as documented in HPI. Cardiovascular symptoms: Negative except as documented in HPI. Gastrointestinal symptoms: Negative except as documented in HPI. Genitourinary symptoms: Negative except as documented in HPI. Musculoskeletal symptoms: Negative except as documented in HPI. Neurologic symptoms: Negative except as documented in HPI. Psychiatric symptoms: Negative except as documented in HPI. Endocrine symptoms: Negative except as documented in HPI. PFSH ED PFSH: Medical History Aortic regurgitation Pulmonary hypertension CHF (congestive heart failure) Gynecomastia Iron deficiency anemia Cardiomyopathy, dilated, nonischemic Osteoarthritis Atrial fibrillation Chest pain Surgical History History of mitral valve replacement with bioprosthetic valve Patient had open heart surgery and mitral valve replacement by a porcine valve on 13 April 2015 at the [facility] in [place]. H/O mitral valve replacement H/O left inguinal hernia repair Status post right knee replacement History of right hip replacement Family History Mother Cancer Dementia Grandfather Lung disease Brother Stroke Denies family history of Diabetes CAD (coronary artery disease) Clotting disorder Chronic kidney disease (CKD) Suicide Anesthesia complication Bleeding disorder Social History Smoking and tobacco/nicotine status: never used tobacco/nicotine Alcohol intake: current Alcohol intake frequency: holidays/special occasions only Substance/Drug Use: never Physical Exam Narrative: EXAM NARRATIVE: General: Alert, no acute distress. Skin: Warm, dry. Head: Normocephalic, atraumatic. Neck: Supple, trachea midline. Eye: Extraocular movements are intact. Ears, nose, mouth and throat: mucosa moist. Cardiovascular: Regular, Normal peripheral perfusion. Respiratory: Lungs are clear to auscultation, respirations are non-labored, breath sounds are equal, Symmetrical chest wall expansion. Gastrointestinal: Soft, Nontender, Non distended Musculoskeletal: Normal ROM, no deformity. Neurological: Alert and oriented, No focal neurological deficit observed. Psychiatric: Cooperative, appropriate mood & affect. Course Vital Signs: Vital signs: Vital Signs Temperature 99.2 F 05/23/24 23:36 Pulse Rate 94 05/24/24 01:45 Respiratory Rate 18 05/24/24 01:45 Blood Pressure 141/98 05/24/24 01:45 Pulse Oximetry 94 05/24/24 01:45 Oxygen Delivery Me thod Nasal Cannula 05/23/24 23:36 Oxygen Flow Rate 2 05/23/24 23:36 MDM - Chest Pain Medical Decision Making Differential diagnosis for patient with shortness of breath includes but is not limited to and based on the above HPI, review of systems and physical exam: Pneumonia. Bronchitis. Asthma or COPD with acute exacerbation. Acute coronary syndrome / NC. Pulmonary embolism. Anxiety. Congestive heart failure. Viral infections including influenza and Covid-19. Atrial fibrillation. Anxiety. Pleural effusion. Pneumothorax. Orders placed to evaluate differential diagnosis based on the above differential, HPI and physical exam EKG: Time 2332. Rate 99. Atrial fibrillation with controlled rate, nonspecific ST changes, no ectopy, This was reviewed and interpreted by myself the ER physician at 2336. Repeat EKG: Time 12:34 AM. Rate 85. Atrial fibrillation with controlled rate, nonspecific ST changes, no ectopy, This was reviewed and interpreted by myself the ER physician at 12:39 AM. No significant changes from previous EKG done in the emergency room tonight. Chest x-ray: Cardiomegaly, sternotomy wires present. No obvious pulmonary edema. No infiltrate. No pneumothorax. Films were interpreted by myself the emergency room provider and pending final radiology review. Lab Review: Laboratory results were reviewed and interpreted by myself the emergency room physician. No leukocytosis. Slightly worsening anemia with a hemoglobin of 9.7 over 3 months ago. BUN/creatinine are also at the top end of his baseline at 43 and 1.5. However proBNP is significantly elevated over previous had over 30,000. Last measurement was 10,000. Patient is COVID-positive. Serial cardiac markers are positive at just over 100. However no delta between the 2 lab draws. I reviewed the patient's medical record. Reexamination: Patient is extremely weak [place] standing and nurse says he almost fell down when she just stood him up in the bed. He did become a little bit more tachycardic in just the brief time he stood up. He does not have any altered mental status. No focal motor deficits. He is family is present and feels like he is not safe to go home. Consultation: I spoke with Dr. Vargas who is on-call for the hospitalist service who agrees to admission. Assessment and plan: COVID-19 Atrial fibrillation with rapid ventricular response Hypoxemia Weakness Congestive heart failure ?40 mg IV Lasix given in the emergency room. -I discussed the patient with the hospitalist on-call who is admitting the patient. - Discussed findings and plan with patient. Answered any questions. - All laboratory values were reviewed and interpreted personally by myself, the ER physician - All imaging was reviewed and interpreted personally by myself, the ER physician. - Evaluation and treatment of this problem were appropriate in the emergency setting Lab Data 05/23/24 23:14 05/23/24 23:14 Laboratory Results WBC 6.40 10^3/uL (3.29-11.43) 05/23/24 23:14 RBC 3.18 10^6/uL (3.85-5.65) L 05/23/24 23:14 Hgb 9.70 g/dL (11.27-16.99) L 05/23/24 23:14 Hct 31.0 % (37-53) L 05/23/24 23:14 MCV 97.5 fl (82-101) 05/23/24 23:14 MCH 30.5 pg (27-33) 05/23/24 23:14 MCHC 31.3 g/dL (30-55) 05/23/24 23:14 RDW 21.7 % (12.1-15.1) H 05/23/24 23:14 Plt Count 214 10^3/cmm (157-399) 05/23/24 23:14 MPV 12.0 fL (7.4-10.4) H 05/23/24 23:14 Neut % (Auto) 78.2 % 05/23/24 23:14 Lymph % (Auto) 14.1 % 05/23/24 23:14 [place] % (Auto) 6.3 % 05/23/24 23:14 Eos % (Auto) 0.5 % 05/23/24 23:14 Baso % (Auto) 0.3 % 05/23/24 23:14 Neut # (Auto) 5.01 10^3/uL (1.8-7.7) 05/23/24 23:14 Lymph # (Auto) 0.9 10^3/uL (0.8-4.8) 05/23/24 23:14 [place] # (Auto) 0.4 10^3/uL (0.2-0.9) 05/23/24 23:14 Eos # (Auto) 0.0 10^3/uL (0.0-0.8) 05/23/24 23:14 Baso # (Auto) 0.0 10^3/uL (0.0-0.1) 05/23/24 23:14 Nucleated RBC % (auto) 0 % 05/23/24 23:14 Nucleated RBCs # 0.0 /100WBC 05/23/24 23:14 Sodium 142 mmol/L (136-145) 05/23/24 23:14 Potassium 5.1 mmol/L (3.5-5.1) 05/23/24 23:14 Chloride 104 mmol/L (98-107) 05/23/24 23:14 Carbon Dioxide 23 mmol/L (22-29) 05/23/24 23:14 Anion Gap 20.1 (5-19) H 05/23/24 23:14 BUN 43 mg/dL (8-23) H 05/23/24 23:14 Creatinine 1.5 mg/dL (0.7-1.2) H 05/23/24 23:14 GFR Calculation Not Reportable 05/23/24 23:14 Glucose 112 mg/dL (65-115) 05/23/24 23:14 Calculated Osmolality 306 mOsm/kg (285-295) H 05/23/24 23:14 Lactic Acid 2.0 mmol/L (0.5-2.2) 05/23/24 23:14 Calcium 9.3 mg/dL (8.5-10.5) 05/23/24 23:14 Total Bilirubin 1.9 mg/dL (0.15-1.2) H 05/23/24 23:14 AST 32 U/L (0-40) 05/23/24 23:14 ALT 11 U/L (0-41) 05/23/24 23:14 Alkaline Phosphatase 79 U/L (40-130) 05/23/24 23:14 Troponin T Baseline 100 ng/L (0-15) H 05/23/24 23:14 Troponin T 120 Minute 101.2 ng/L (0-15) H 05/24/24 00:40 Delta Troponin T 1.2 ABS# (0-10) 05/24/24 00:40 NT-Pro-B Natriuret Pep 99661 pg/mL (0-450) H 05/23/24 23:14 Total Protein 6.4 g/dL (6.6-8.7) L 05/23/24 23:14 Albumin 3.5 g/dL (3.5-5.2) 05/23/24 23:14 Globulin 2.9 g/dL (1.3-4.6) 05/23/24 23:14 Urine Color Dark yellow (Yellow) A 05/24/24 00:25 Urine Appearance Cloudy (CLEAR) A 05/24/24 00:25 Urine pH 5.0 (5-7) 05/24/24 00:25 Ur Specific [place] 1.017 (1.005-1.030) 05/24/24 00:25 Urine Protein Trace (Negative) A 05/24/24 00:25 Urine Glucose (UA) Negative (Normal) 05/24/24 00:25 Urine Ketones Trace (Negative) 05/24/24 00:25 Urine Blood 2+ (Negative) A 05/24/24 00:25 Urine Nitrate Negative (Negative) 05/24/24 00:25 Urine Bilirubin Negative (Negative) 05/24/24 00:25 Urine Urobilinogen 1.0 mg/dL (Negative) 05/24/24 00:25 Ur Leukocyte Esterase Trace (Negative) A 05/24/24 00:25 Urine RBC 0-2 /hpf (0-2) 05/24/24 00:25 Urine WBC 0-5 /hpf (0-5) 05/24/24 00:25 Ur Squamous Epith Cells 5-10 /hpf (0-5) H 05/24/24 00:25 Urine Bacteria None seen /hpf (NONE) 05/24/24 00:25 Hyaline Casts 9.91 /lpf 05/24/24 00:25 Coarse Granular Casts 5-10 /lpf H 05/24/24 00:25 Digoxin 1.4 ng/mL (0.6-1.2) H 05/24/24 00:40 Influenza A (PCR) Negative (Negative) 05/24/24 00:25 Influenza Type B (PCR) Negative (Negative) 05/24/24 00:25 RSV (PCR) Negative (Negative) 05/24/24 00:25 SARS-CoV-2 (PCR) Positive (Negative) A 05/24/24 00:25 XR interpretation done by ED provider, pending radiology final review Discharge Plan Discharge Patient Disposition: Placed in Observation Admit Provider: Ema Vargas Clinical Impression: COVID-19, Hypoxemia, Atrial fibrillation with rapid ventricular response, Weakness, Congestive heart failure Coding Level of Care Code ED Associate Professor Of Kinesiology for Gilles Aponte
[2024-05-24] VITALS (24 sets, daily range): BP systolic 115–160; BP diastolic 55–98; PULSE 71–115; RESP 16–37; TEMP 36.4–37; O2SAT 91–100
[2024-05-24 00:10] LABS: Troponin(5th) Baseline 100 ng/L (0-15)
[2024-05-24 00:26] LABS: Alanine Aminotransferase 11 U/L (0-41); Albumin Level 3.5 g/dL (3.5-5.2); Alkaline Phosphatase 79 U/L (40-130); Blood Urea Nitrogen 43 mg/dL (8-23); Calcium 9.3 mg/dL (8.5-10.5); Carbon Dioxide 23 mmol/L (22-29); Chloride 104 mmol/L (98-107); Globulin 2.9 g/dL (1.3-4.6); Glucose 112 mg/dL (65-115); Osmolality Calculated 306 mOsm/kg (285-295); Sodium 142 mmol/L (136-145); Total Bilirubin 1.9 mg/dL (0.15-1.2); Total Protein 6.4 g/dL (6.6-8.7)
[2024-05-24 00:27] LABS: Anion Gap 20.1 (5-19); Aspartate Amino Transferase 32 U/L (0-40); Potassium 5.1 mmol/L (3.5-5.1)
[2024-05-24 00:32] LABS: Bilirubin Urine Negative (Negative); Blood Urine 2+ (Negative); Glucose Urine UA Negative (Normal); Ketones Urine Trace (Negative); Leukocyte Esterase Urine Trace (Negative); Nitrate Urine Negative (Negative); Protein Urine Trace (Negative); Specific Gravity, Urine 1.017 (1.005-1.030); Urine Appearance Cloudy (CLEAR); Urine Color Dark Yellow (Yellow)
--- NOTE | 2024-05-24 00:34 | ECG_ITS ---
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1950 Requested By: Desirae Ren Order Number: [id number] Reading MD: HAKEEM CORRALES Measurements Intervals [place] Rate: 85 P: 0 TN: 0 QRS: 97 QRSD: 133 T: -79 QT: 395 QTc: 472 Interpretive Statements ATRIAL FIBRILLATION BORDERLINE RIGHT AXIS DEVIATION [QRS AXIS > 90] INTRAVENTRICULAR CONDUCTION DELAY [130+ ms QRS DURATION] PROBABLE INFERIOR MYOCARDIAL INFARCTION , OF INDETERMINATE AGE [35 ms Q WAVE IN II/aVF] Compared to ECG 05/23/2024 23:53:22 Myocardial infarct finding now present Ventricular premature complex(es) no longer present Aberrant conduction of supraventricular beat(s) no longer present T-wave abnormality no longer present Possible ischemia no longer present Electronically Signed On 05-30-2024 18:28:24 CDT by HAKEEM CORRALES [id number]
[2024-05-24 00:37] LABS: Bacteria Urine None Seen /hpf; Hyaline Casts Urine 9.91 /lpf; RBC Urine 0-2 /hpf (0-2); WBC Urine 0-5 /hpf (0-5)
[2024-05-24 00:46] LABS: NT Pro B Type Natriuretic Pept 38557 pg/mL (0-450)
[2024-05-24 00:54] LABS: UA Slide Review UA Slide Review Perf
[2024-05-24 01:04] LABS: Troponin 5 2HR Delta 1.2 ABS# (0-10)
[2024-05-24 01:05] LABS: Troponin 5 2HR 101.2 ng/L (0-15)
[2024-05-24 01:08] LABS: Influenza A NEGATIVE (Negative); Influenza B NEGATIVE (Negative); Respiratory Syncytial Virus Ce NEGATIVE (Negative)
[2024-05-24] MEDS: FUROsemide 10 mg/mL SDV 4mL 40 MG IVP (01:34)
--- NOTE | 2024-05-24 01:46 | PM.HP ---
Providers/Chief Complaint Primary Care Provider: Mally Neal MD Chief Complaint: cp History of Present Illness Nash Cox is a 74 year old male A-fib chronic anticoagulation, does not use oxygen, nonischemic cardiomyopathy with reduced EF, lives alone, presented with chief complaint generalized weakness, fatigue, A-fib RVR. Patient has been sick for the last 7 to 10 days, patient was evaluated on 05/16 by the ER physician he was discharged home after getting anxiolytics in the ER, presenting back with worsening of symptoms. Patient is endorsing fever, lethargy, fatigue generalized weakness, shortness of breath, decreased appetite, diarrhea low-grade fever at home. Lives with his at home. Does not use oxygen at baseline. Compliant with his medications. Workup in the ER consistent with COVID-19 and CHF exacerbation. At the time of evaluation he is not requiring oxygen however initially he required 2 L. Troponin 100 however without significant delta, patient is not endorsing chest pain Digoxin level is high, patient becomes tachycardic on minimal exertion Review of Systems Const: Reports: fever(s) and chills Eyes: Denies: change in vision ENMT: Denies: throat pain Card: Reports: palpitations Resp: Reports: dyspnea GI: Reports: nausea Medications/Allergies Home Medications ?Medication ?Instructions ?Recorded ?Confirmed ?Last Taken ?Type dabigatran etexilate 75 mg capsule 75 mg PO BID 03/31/19 02/18/24 Unknown History (Pradaxa) sacubitril 24 mg-valsartan 26 mg 1.5 tab PO BID #270 tabs 11/11/22 02/18/24 Unknown Rx tablet (Entresto) carvedilol 6.25 mg tablet (Coreg) 6.25 mg PO BID #180 tabs 08/17/23 02/18/24 Unknown Rx buspirone 7.5 mg tablet 7.5 mg PO BID #30 tabs 02/18/24 Unknown Rx gabapentin 300 mg capsule 300 mg PO BID 02/18/24 02/18/24 Unknown History hydroxyzine HCl 25 mg tablet 25 mg PO Q6H PRN Anxiety/sleep #10 02/18/24 Unknown Rx tabs trazodone 100 mg tablet 50 mg PO BEDTIME 02/18/24 02/18/24 Unknown History furosemide 40 mg tablet 60 mg (1.5 x 40 mg) PO DAILY #180 03/03/24 03/03/24 Unknown Rx tabs digoxin 125 mcg (0.125 mg) tablet 125 mcg PO DIRECTED #90 tabs 05/10/24 Unknown Rx alprazolam 0.25 mg tablet 0.25 mg PO TID PRN anxiety #14 tabs 05/16/24 Unknown Rx Allergies Allergy/AdvReac Type Severity Reaction Status Date / Time meperidine (From Demerol) Allergy Unknown unknown Verified 05/23/24 23:39 PFSH Acute PFSH: Medical History (Updated 05/24/24 @ 03:06 by Ema Vargas MD) Chronic kidney disease Aortic regurgitation Pulmonary hypertension CHF (congestive heart failure) Gynecomastia Iron deficiency anemia Cardiomyopathy, dilated, nonischemic Osteoarthritis Atrial fibrillation Chest pain Surgical History History of mitral valve replacement with bioprosthetic valve Patient had open heart surgery and mitral valve replacement by a porcine valve on 13 April 2015 at the [facility] in [place]. H/O mitral valve replacement H/O left inguinal hernia repair Status post right knee replacement History of right hip replacement Family History Mother Cancer Dementia Grandfather Lung disease Brother Stroke Denies family history of Diabetes CAD (coronary artery disease) Clotting disorder Chronic kidney disease (CKD) Suicide Anesthesia complication Bleeding disorder Social History Smoking and tobacco/nicotine status: never used tobacco/nicotine Alcohol intake: current Alcohol intake frequency: holidays/special occasions only Substance/Drug Use: never Vitals/I&O/Wt Last Vital Signs Temp 99.2 F 05/23/24 23:36 Pulse 94 05/24/24 01:45 Resp 18 05/24/24 01:45 BP 141/98 05/24/24 01:45 Pulse Ox 94 05/24/24 01:45 O2 Del Method Nasal Cannula 05/23/24 23:36 O2 Flow Rate 2 05/23/24 23:36 05/23/24 05/23/24 05/24/24 14:59 22:59 06:59 Intake Total 0 / 0 Balance 0 / 0 Weight last 48 hrs Weight 63.503 kg Physical Exam Narrative: Patient currently on room air Saturating 91% Hemodynamic stable No active chest pain No active shortness of breath Pleasant and cooperative AOx4 NIH 0 Lower extremity venous's dermatitis Scaling of skin noted Mild signs of CHF exacerbation Nondistended abdomen No active chest pain Variable S1-S2 heart rate around 90s Data 05/23/24 23:14 05/23/24 23:14 Micro: Microbiology 05/24/24 00:33 Blood Culture - Preliminary Blood SPECIMEN COLLECTED 05/24/24 00:29 Blood Culture - Preliminary Blood SPECIMEN COLLECTED A&P Assessment and plan (1) Cardiomyopathy, dilated, nonischemic: (2) Congestive heart failure: (3) Pulmonary hypertension: (4) History of mitral valve replacement with bioprosthetic valve: (5) Atrial fibrillation: Qualifiers: Atrial fibrillation type: longstanding persistent Qualified Code(s): I48.11 - Longstanding persistent atrial fibrillation (6) COVID-19: (7) Hypoxemia: (8) Weakness: Plan COVID-19 related generalized weakness Patient at the time of my evaluation not requiring supplemental oxygen I will discontinue Entresto Continue Decadron Saturating 91 to 92% on room air No active chest pain or shortness of breath during my evaluation Patient has been sick for last 2 weeks, may not need quarantine Lives with his Uses a walker Does not use oxygen at baseline Ischemic cardiomyopathy reduced EF with mild CHF decompensation Continue IV diuresis Elevated troponin without significant delta no active chest pain, EKG not showing infarctive changes A-fib without RVR Hold digoxin Continue anticoagulating agent Chronic kidney disease: Creatinine seems around baseline Will request physical therapy Patient is full code goals of care discussed with him Cardiac diet PDMP PDMP Reviewed: Not Reviewed Attestations Medical Necessity Statement*: Anticipating discharge within 24 to 48 hours Diagnoses Cardiomyopathy, dilated, nonischemic I42.0 Congestive heart failure I50.9 Pulmonary hypertension I27.20 History of mitral valve replacement with bioprosthetic valve Z95.3 Longstanding persistent atrial fibrillation I48.11 Atrial fibrillation type: longstanding persistent COVID-19 U07.1 Hypoxemia R09.02 Weakness R53.1
[2024-05-24 01:57] LABS: SARS-CoV-2 PCR Positive (Negative)
[2024-05-24 02:11] LABS: Digoxin 1.4 ng/mL (0.6-1.2)
[2024-05-24] MEDS: dexamethasone 10 mg/mL INJ 6 MG PO (04:06)
--- NOTE | 2024-05-24 05:40 | ECG_ITS ---
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1950 Requested By: Desirae Ren Order Number: [id number] Reading MD: HAKEEM CORRALES Measurements Intervals [place] Rate: 87 P: 0 [place]: 0 QRS: 85 QRSD: 127 T: -85 QT: 361 QTc: 435 Interpretive Statements ATRIAL FIBRILLATION WITH ABERRANT CONDUCTION OR VENTRICULAR PREMATURE COMPLEXES INFERIOR MYOCARDIAL INFARCTION , OF INDETERMINATE AGE [40+ ms Q WAVE AND/OR ST/T ABNORMALITY IN II/aVF] ST DEPRESSION, CONSIDER SUBENDOCARDIAL INJURY [0.1+ mV ST DEPRESSION] Compared to ECG 05/24/2024 00:34:40 Ventricular premature complex(es) now present Aberrant conduction of supraventricular beat(s) now present ST (T wave) deviation now present Intraventricular conduction delay no longer present Myocardial infarct finding still present Electronically Signed On 05-30-2024 18:27:06 CDT by HAKEEM CORRALES [id number]
[2024-05-24 05:52] LABS: Basophils % 0.5 %; Eosinophils % 0.3 %; Hematocrit 29.7 % (37-53); Lymphocytes % 14.4 %; Mean Corpuscular HGB Conc 30.3 g/dL (30-55); Mean Corpuscular Hemoglobin 30.6 pg (27-33); Mean Platelet Volume 12.2 fL (7.4-10.4); Monocytes # 0.4 10^3/uL (0.2-0.9); Monocytes % 5.3 %; Neutrophils # 5.19 10^3/uL (1.8-7.7); Neutrophils % 78.9 %; Nucleated Red Blood Cells % 0 %; Platelet Count 199 10^3/cmm (157-399); Red Blood Count 2.94 10^6/uL (3.85-5.65); Red Cell Distribution Width 21.8 % (12.1-15.1); White Blood Count 6.58 10^3/uL (3.29-11.43)
[2024-05-24 06:11] LABS: Troponin 5 6HR Delta 3.5 ng/L (0-12)
[2024-05-24 06:13] LABS: Blood Urea Nitrogen 47 mg/dL (8-23); Calcium 8.7 mg/dL (8.5-10.5); Carbon Dioxide 19 mmol/L (22-29); Chloride 105 mmol/L (98-107); Creatinine Clr Calc Pharmacy 44.8135; Glucose 137 mg/dL (65-115); Osmolality Calculated 300 mOsm/kg (285-295); Phosphorus 3.3 mg/dL (2.5-4.5); Sodium 138 mmol/L (136-145)
[2024-05-24 06:16] LABS: Anion Gap 18.6 (5-19); Potassium 4.6 mmol/L (3.5-5.1)
[2024-05-24 06:17] LABS: Troponin 5 6HR 103.5 ng/L (0-15)
--- NOTE | 2024-05-24 06:55 | ECG_ITS ---
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 Measurements Intervals [place] Rate: 99 P: 0 [place]: 0 QRS: -31 QRSD: 129 T: 140 QT: 363 QTc: 467 Interpretive Statements ATRIAL FIBRILLATION WITH ABERRANT CONDUCTION OR VENTRICULAR PREMATURE COMPLEXES LEFT AXIS DEVIATION [QRS AXIS < -30] POSSIBLE LEFT VENTRICULAR HYPERTROPHY [VOLTAGE CRITERIA PLUS LAE OR QRS WIDENING] ST DEVIATION AND MODERATE T-WAVE ABNORMALITY, CONSIDER LATERAL ISCHEMIA [-0.1+ mV T-WAVE IN I/aVL/V5/V6] Compared to ECG 05/16/2024 20:14:09 T-wave abnormality now present Possible ischemia now present Myocardial infarct finding no longer present Electronically Signed On 05-27-2024 19:16:54 CDT by Rad Blackman M.D. [email or web address] [id number]
--- NOTE | 2024-05-24 07:44 | PC.NURSE ---
PATIENT YELLING FROM THE ROOM. PATIENT STATES THAT HE IS THIRSTY. PATIENT PROVIDED WATER. PATIENT STATES THAT HE KNOWS HE IN THE HOSPITAL, BUT SPEAKS ABOUT THE BOARDS BEING CLEAN AND THE TWO PUPS OVER THERE THAT ARE DYING. PATIENT MADE COMFORTABLE IN BED, BED LOWERED AND BED RAILS UP.
--- NOTE | 2024-05-24 08:41 | PC.NURSE ---
PATIENT UP TO BEDSIDE TO USE URINAL. GRANDDAUGHTER AT BEDSIDE SPEAKING WITH PATIENT. PATIENT REMAINS CONFUSED. SMALL PORTION OF BREAKFAST EATEN.
[2024-05-24] MEDS: carvedilol 6.25 mg Tablet PO ×2 (09:33→17:51)
--- NOTE | 2024-05-24 13:02 | USCV_ITS ---
Nash Cox Age: 74 Gender: M : 1950 Exam Date: 05/24/2024 15:17 Ordering Phys: eKny Vickers MD Technologist: ELBERT Exam Location: [facility] – [place] Indication: Heart Failure BP: 126 / 86 HR: 106 Rhythm: Sinus Technical Quality: Adequate MEASUREMENTS (Male / Female) Normal Values 2D ECHO LV Diastolic Diameter PLAX 7.0 cm 4.2 - 5.9 / 3.9 - 5.3 cm IVS Diastolic Thickness 1.6 cm 0.6 - 1.0 / 0.6 - 0.9 cm IVS Systolic Thickness 2.0 cm LVPW Diastolic Thickness 1.3 cm 0.6 - 1.0 / 0.6 - 0.9 cm LVPW Systolic Thickness 1.3 cm LVOT Diameter 2.1 cm LV Ejection Fraction 2D Teich 20.5 % LV Ejection Fraction MOD 4C 45.1 % LV Ejection Fraction MOD 2C 37.4 % LV Ejection Fraction 2C AL 36.5 % LA Diameter 5.6 cm RA Systolic Volume 4C AL 43.5 ml RA Systolic Volume 4C MOD 43.2 ml LA Sys Volume AL 242.1 cm cubed LA Sys Volume Index AL 134.4 cm cubed/m squared Aorta at Sinotubular Diameter 2.5 cm IVC Diameter 2.5 cm M-MODE LA Ao Ratio MM 2.1 AV Cusp Separation MM 1.7 cm DOPPLER AV Peak Velocity 150.0 cm/s LVOT Peak Velocity 144.0 cm/s AV Area Cont Eq vti 2.9 cm squared AV Area Cont Eq pk 3.3 cm squared MV Peak Velocity 247.0 cm/s MV Area PHT 2.3 cm squared TR Peak Velocity 133.0 cm/s TR Peak Gradient 7.1 mmHg PV Peak Velocity 105.0 cm/s FINDINGS Left Ventricle Moderately increased left ventricular cavity size. Severely decreased left ventricular systolic function. Left ventricular ejection fraction is estimated at 20 %. Global left ventricular hypokinesis. Right Ventricle The right ventricle is normal in size and function. Right Atrium The right atrium is normal in size. Left Atrium Moderately increased left atrial size. Mitral Valve Prosthetic mitral valve sitting in normal position appeared to mildly stenotic Aortic Valve Moderate aortic valve calcification. No aortic valve stenosis. Moderate aortic valve regurgitation. . Tricuspid Valve Structurally normal tricuspid valve without significant stenosis or regurgitation. Pulmonary artery systolic pressure is normal. Pulmonic Valve Structurally normal pulmonic valve without significant stenosis. There is no pulmonic regurgitation. Pericardium Normal pericardium without effusion. Aorta Normal ascending aorta dimension. IVC The inferior vena cava appears normal. CONCLUSIONS Moderately increased left ventricular cavity size. Severely decreased left ventricular systolic function. Left ventricular ejection fraction is estimated at 20 %. Global left ventricular hypokinesis. Moderately increased left atrial size. Prosthetic mitral valve sitting in normal position appeared to mildly stenotic Moderate aortic valve calcification. No aortic valve stenosis. Moderate aortic valve regurgitation. . Right atrial pressure is around 10 mm of mercury. Ema Laboy MD (Electronically Signed) Final Date: 24 May 2024 23:03 S
--- NOTE | 2024-05-24 13:03 | P.PN_ITS ---
Subjective 2 Subjective: 74-year-old male with a past medical his tory of paroxysmal atrial fibrillation, non-ischemic cardiomyopathy, valvular heart disease with aortic regurgitation, pulmonary hypertension, bioprosthetic mitral valve replacement for valvular heart disease in 2016, gout, and iron deficiency anemia presents with generalized weakness and fatigue for the past week. Patient was very confused. Unclear what is baseline was. Below information was obtained with review of records and discussion with staff. The patient was not feeling well for a week prior to arrival and initially came to the emergency room on 05/16/2024 with shortness of breath. He was noted to have tested positive for COVID-19 on 05/14/2024. At that time, he was suspected to have an anxiety attack and was discharged with alprazolam 0.25 mg TID PRN. Regarding his weakness, he was complaining that he was so weak he was not able to ambulate. Workup in the emergency room included an EKG which showed controlled atrial fibrillation. Chest X-ray showed cardiomegaly without pneumothorax, infiltrate, or consolidation. Labs showed WBC 6.4, hemoglobin 9.7, hematocrit 31, platelets 214, sodium 142, potassium 5.1, chloride 104, bicarbonate 23, BUN 43, and creatinine 1.5 (baseline around 1.5 due to chronic stage 3 kidney disease). Total bilirubin was mildly elevated at 1.9 with AST 32, ALT 11, and alkaline phosphatase 79. Troponin T was 100 at baseline, 101 at 120 minutes (delta 1.2), and 103 at 6 hours. Pro-BNP was significantly elevated at 38,557 compared to 10,280 on 04/15/2024. Urinalysis showed 2+ blood but was negative for leukocyte esterase and nitrites. COVID-19 PCR was positive, while RSV and influenza were negative. Chest X-ray in the ER revealed cardiomegaly with possible mild pulmonary vascular congestion, linear scarring , patchy infiltrates or atelectasis in the right mid lobe, and a suspected small right pleural effusion. In the emergency room, he was started on dexamethasone 6 mg PO daily for 10 days, given furosemide 40 mg once and continued at 40 mg daily, remdesivir 200 mg once, and continued on home medications including coricidin 2.25 mg BID and apixaban 75 mg BID. Digoxin was held due to elevated levels. A repeat echocardiogram was ordered. On room air, his oxygen saturation is 98% with a low-grade temperature of 99?F. Heart rate has trended up to 115 bpm despite carvedilol 6.25 mg BID. Blood pressure is 115/93. Vitals/I&O/Wt Last Vital Signs Temp 99.2 F 05/23/24 23:36 Pulse 115 H 05/24/24 12:15 Resp 29 H 05/24/24 10:45 BP 115/93 05/24/24 12:15 Pulse Ox 98 05/24/24 12:15 O2 Del Method Room Air 05/24/24 12:15 O2 Flow Rate 2 05/23/24 23:36 05/23/24 05/24/24 05/24/24 22:59 06:59 14:59 Intake Total 0 / 0 Balance 0 / 0 Weight last 48 hrs Weight 63.503 kg Physical Exam 2 Narrative: Confused Nonlabored respiration RRR MIld LE edema with stasis dermatitis Nondistended abdomen No active chest pain Irregularly irregular Data 05/24/24 05:47 05/24/24 05:47 Micro: Microbiology 05/24/24 00:33 Blood Culture - Preliminary Blood SPECIMEN COLLECTED 05/24/24 00:29 Blood Culture - Preliminary Blood SPECIMEN COLLECTED A&P Assessment and plan (1) Cardiomyopathy, dilated, nonischemic: (2) Congestive heart failure: (3) Pulmonary hypertension: (4) History of mitral valve replacement with bioprosthetic valve: (5) Atrial fibrillation: Qualifiers: Atrial fibrillation type: longstanding persistent Qualified Code(s): I 48.11 - Longstanding persistent atrial fibrillation (6) COVID-19: (7) Hypoxemia: (8) Weakness: Plan 1. COVID-19 Infection - Hold on further remdesivir - Continue dexamethasone 6 mg PO daily for 10 day course 2. Congestive Heart Failure Exacerbation - Continue Lasix 40 mg daily 3. Atrial Fibrillation - Continue Coreg 6.25 mg BID, though heart rate trending up to 115 - Pradexa Remainder as noted in earlier H&P PDMP PDMP Reviewed: Not Reviewed Attestations 2 Medical Necessity Statement*: Anticipating discharge within 24 to 48 hours Coding Level of Care Code Acute Code for [facility] Fwd Diagnoses Cardiomyopathy, dilated, nonischemic I42.0 Congestive heart failure I50.9 Pulmonary hypertension I27.20 History of mitral valve replacement with bioprosthetic valve Z95.3 Longstanding persistent atrial fibrillation I48.11 Atrial fibrillation type: longstanding persistent COVID-19 U07.1 Hypoxemia R09.02 Weakness R53.1
--- NOTE | 2024-05-24 13:04 | PC.NURSE ---
PT refuses to be put in hospital gown
[2024-05-24] MEDS: FUROsemide 10 mg/mL SDV 10mL 40 MG IVP (17:51)
--- NOTE | 2024-05-24 20:00 | PC.NURSE ---
Addendum entered by Cherelle Napoles LPN 05/25/24 00:11: Medication was given with no change in behavior. Original Note: Patient became very restless and agitated at 1955. This nurse contacted Dr. Vargas who ordered 10mg Zyprexa IM one time order.
[2024-05-24] MEDS: OLANZapine 10 mg VIAL IM (22:25)
[2024-05-24] MEDS: LORazepam 2 mg/mL INJ 1 mL 1 MG IVP (23:24)
--- NOTE | 2024-05-24 23:25 | PC.NURSE ---
This nurse was called by psa to patients room due to patient becoming more combative. This nurse contacted Dr. Vargas who ordered 1mg Ativan IVP one time order. This nurse administered medication as ordered. Patient is currently resting. This nurse will continue to monitor.
[2024-05-25] VITALS (10 sets, daily range): BP systolic 116–146; BP diastolic 54–72; PULSE 62–98; RESP 16–34; TEMP 36.3–37.1; O2SAT 92–98
[2024-05-25] MEDS: dexamethasone 10 mg/mL INJ 6 MG PO (02:17)
[2024-05-25 04:56] LABS: Hematocrit 25.9 % (37-53); Lymphocytes # 0.7 10^3/uL (0.8-4.8); Lymphocytes % 12.8 %; Mean Corpuscular HGB Conc 31.3 g/dL (30-55); Mean Corpuscular Hemoglobin 31.3 pg (27-33); Mean Platelet Volume 11.9 fL (7.4-10.4); Monocytes # 0.3 10^3/uL (0.2-0.9); Monocytes % 4.9 %; Neutrophils # 4.12 10^3/uL (1.8-7.7); Neutrophils % 81.5 %; Nucleated Red Blood Cells % 0.4 %; Platelet Count 152 10^3/cmm (157-399); Red Blood Count 2.59 10^6/uL (3.85-5.65); Red Cell Distribution Width 22.5 % (12.1-15.1); White Blood Count 5.06 10^3/uL (3.29-11.43)
[2024-05-25 05:16] LABS: Digoxin 1.2 ng/mL (0.6-1.2)
[2024-05-25 05:17] LABS: Albumin Level 3.1 g/dL (3.5-5.2); Alkaline Phosphatase 71 U/L (40-130); Anion Gap 22.2 (5-19); Blood Urea Nitrogen 71 mg/dL (8-23); Calcium 8.7 mg/dL (8.5-10.5); Carbon Dioxide 18 mmol/L (22-29); Chloride 104 mmol/L (98-107); Creatinine Clr Calc Pharmacy 25.3858; Globulin 2.9 g/dL (1.3-4.6); Glucose 142 mg/dL (65-115); Osmolality Calculated 311 mOsm/kg (285-295); Potassium 5.2 mmol/L (3.5-5.1); Sodium 139 mmol/L (136-145); Total Bilirubin 2.7 mg/dL (0.15-1.2)
[2024-05-25 05:31] LABS: Alanine Aminotransferase 801 U/L (0-41)
[2024-05-25 05:35] LABS: Aspartate Amino Transferase 1534 U/L (0-40)
[2024-05-25 05:41] LABS: Magnesium 2.1 mg/dL (1.7-2.3)
[2024-05-25 05:43] LABS: Procalcitonin 0.31 ng/mL (0-0.5)
[2024-05-25] MEDS: carvedilol 6.25 mg Tablet PO ×2 (07:28→17:36)
--- NOTE | 2024-05-25 09:21 | PC.CHAP ---
Pastoral Care Encounter/Spiritual Assessment Type of Contact [] Declined parts inspector visit [] Patient/Family/Request visit [] Outpatient visit [] Follow-up visit [] Physician referral [] Code/Alert [] Routine visit [] Staff referral [] Actively dying [] Patient sleeping [] Family support [] [] Out of room [] Palliative care [] [] Receiving care in room [] Pre-surgical visit [] Trauma [] Long length of stay [] ICU visit [x] Other:Contact precautions. No visit. Relational/Emotional Strength [] Patient feels connected with others/family/visitors/staff [] Distress [] Loneliness/isolation [] Abandonment Spirituality of Patient [] Person of Melodie [] Attends Gnosticism of their Melodie [] Believes in Prayer [] Reads Bible or Lutheran materials [] There are Spiritual issues to be addressed Surveyor Helper Rod Interventions [] Prayer [] Active listening [] Non-anxious presence [] Spiritual/emotional support [] Crisis/trauma care [] Spiritual counseling [] Bereavement support [] Provided bereavement packet [] Provided Bible/devotional materials [] Provided toy/stuffed animal, coloring book to patient or family member [] Provided Communion [] Anointing/[place] [] Salvation [] Completed spiritual assessment [] Other: Impact on Illness or Injury [] Angry [] Fearful [] Anxious [] Often cries [] Exhaustion [] Unable to work [] Unable to attend latter-day [] Unable to walk/stand [] Unable to read [] Unable to drive [] Unable to eat/drink [] Unable to sleep [] Unable to be with family [] Patient intubated [] Other: Summary Time spent with patient
[2024-05-25 13:38] LABS: Ammonia 37 umol/L (16-60)
--- NOTE | 2024-05-25 21:03 | P.PN_ITS ---
Subjective 2 Subjective: 74-year-old male with a past medical his tory of paroxysmal atrial fibrillation, non-ischemic cardiomyopathy, valvular heart disease with aortic regurgitation, pulmonary hypertension, bioprosthetic mitral valve replacement for valvular heart disease in 2016, gout, and iron deficiency anemia presents with generalized weakness and fatigue for the past week. Patient was very confused. Unclear what is baseline was. Below information was obtained with review of records and discussion with staff. The patient was not feeling well for a week prior to arrival and initially came to the emergency room on 05/16/2024 with shortness of breath. He was noted to have tested positive for COVID-19 on 05/14/2024. At that time, he was suspected to have an anxiety attack and was discharged with alprazolam 0.25 mg TID PRN. Regarding his weakness, he was complaining that he was so weak he was not able to ambulate. Workup in the emergency room included an EKG which showed controlled atrial fibrillation. Chest X-ray showed cardiomegaly without pneumothorax, infiltrate, or consolidation. Labs showed WBC 6.4, hemoglobin 9.7, hematocrit 31, platelets 214, sodium 142, potassium 5.1, chloride 104, bicarbonate 23, BUN 43, and creatinine 1.5 (baseline around 1.5 due to chronic stage 3 kidney disease). Total bilirubin was mildly elevated at 1.9 with AST 32, ALT 11, and alkaline phosphatase 79. Troponin T was 100 at baseline, 101 at 120 minutes (delta 1.2), and 103 at 6 hours. Pro-BNP was significantly elevated at 38,557 compared to 10,280 on 04/15/2024. Urinalysis showed 2+ blood but was negative for leukocyte esterase and nitrites. COVID-19 PCR was positive, while RSV and influenza were negative. Chest X-ray in the ER revealed cardiomegaly with possible mild pulmonary vascular congestion, linear scarring , patchy infiltrates or atelectasis in the right mid lobe, and a suspected small right pleural effusion. In the emergency room, he was started on dexamethasone 6 mg PO daily for 10 days, given furosemide 40 mg once and continued at 40 mg daily, remdesivir 200 mg once, and continued on home medications including coricidin 2.25 mg BID and apixaban 75 mg BID. Digoxin was held due to elevated levels. A repeat echocardiogram was ordered. On room air, his oxygen saturation is 98% with a low-grade temperature of 99?F. Heart rate has trended up to 115 bpm despite carvedilol 6.25 mg BID. Blood pressure is 115/93. 05/25 Patient was noted to have increaseing confusion dicussed with son who stated this was new finding in the past week. He was noted to have an elevated dig level. today noted to have increasing creatinine. Vitals/I&O/Wt Last Vital Signs Temp 97.4 F L 05/25/24 20:24 Pulse 72 05/25/24 20:24 Resp 34 H 05/25/24 20:24 BP 134/54 05/25/24 20:24 Pulse Ox 96 05/25/24 20:24 O2 Del Method Room Air 05/25/24 20:24 O2 Flow Rate 1 05/25/24 11:57 05/25/24 05/25/24 05/25/24 06:59 14:59 22:59 Intake Total 60 / 480 Balance 60 / 480 Weight last 48 hrs Weight 63.758 kg Weight 65.544 kg Weight 63.503 kg Physical Exam 2 Narrative: Confused Nonlabored respiration RRR MIld LE edema with stasis dermatitis Nondistended abdomen No active chest pain Irregularly irregular Data 05/25/24 04:16 05/25/24 04:16 Micro: Microbiology 05/24/24 00:33 Blood Culture - Preliminary Blood NEGATIVE TO DATE 05/24/24 00:29 Blood Culture - Preliminary Blood NEGATIVE TO DATE A&P Assessment and plan (1) Cardiomyopathy, dilated, nonischemic: (2) Congestive heart failure: (3) Pulmonary hypertension: (4) History of mitral valve replacement with bioprosthetic valve: (5) Atrial fibrillation: Qualifiers: Atrial fibrillation type: longstanding persistent Qualified Code(s): I 48.11 - Longstanding persistent atrial fibrillation (6) COVID-19: (7) Hypoxemia: (8) Weakness: Plan COVID-19 Infection Acute systolic heart failure exacerbation Atrial Fibrillation Acute on chronic renal failure Acute encephalopathy Plan: Stopped decadron possibly contributing to mental status Hold diuretics given worsening renal failure BMP in am Echo noted - worening EF Will consult cardiology in am D/w son today PDMP PDMP Reviewed: Not Reviewed Attestations 2 Medical Necessity Statement*: Anticipating discharge within 24 to 48 hours Coding Level of Care Code Acute Code for [facility] Fwd Diagnoses Cardiomyopathy, dilated, nonischemic I42.0 Congestive heart failure I50.9 Pulmonary hypertension I27.20 History of mitral valve replacement with bioprosthetic valve Z95.3 Longstanding persistent atrial fibrillation I48.11 Atrial fibrillation type: longstanding persistent COVID-19 U07.1 Hypoxemia R09.02 Weakness R53.1
--- NOTE | 2024-05-25 21:09 | US_ITS ---
WS: [id number] Right upper quadrant ultrasound, 05/25/2024 Clinical Data: increasing lfts Comparison: None. Findings: The pancreas was obscured by overlying bowel gas. The liver shows multiple cysts, the largest is 3.6 cm in the left lobe. There are no masses or dilated intrahepatic ducts. The liver parenchyma shows heterogeneous echotexture. The portal vein shows hepatopetal pedal flow with pulsatility. The main hepatic vein is bidirectional and pulsatile. The gallbladder has no stones or sludge. The wall measures 0.2 cm with no pericholecystic fluid. The common bile duct is 0.5 cm and no intraductal abnormalities are noted. The right kidney is 9.0 cm. No cysts, masses or hydronephrosis is seen. The right renal cortex is thin. The abdominal aorta is not dilated and the inferior vena cava has normal flow. No vascular abnormalities are seen. There is a small right pleural effusion.. US/US liver [id number] Impression: 1. Multiple simple cysts of the liver with normal portal venous flow and hetero geneous echotexture. 2. Thinned cortex of the right kidney. 3. Small right pleural effusion.
[2024-05-26] VITALS (7 sets, daily range): BP systolic 127–141; BP diastolic 54–69; PULSE 64–94; RESP 14–22; TEMP 35.9–36.5; O2SAT 89–98
--- NOTE | 2024-05-26 02:26 | ECG_ITS ---
Meta Test Date: 2024-05-26 Pat Name: Nash oCx Department: Room: 271 Gender: Male Oim Architect: : [id number] Requested By: Ema Vargas Order Number: [id number] Poonam MD: Rad Blackman M.D. Measurements Intervals [place] Rate: 76 P: 0 FL: 0 QRS: -35 QRSD: 127 T: 138 QT: 370 QTc: 418 Interpretive Statements ATRIAL FIBRILLATION LEFT AXIS DEVIATION [QRS AXIS < -30] LEFT BUNDLE BRANCH BLOCK [120+ ms QRS DURATION, 80+ ms Q/S IN V1/V2, 85+ ms R IN I/aVL/V5/V6] Compared to ECG 05/24/2024 05:49:13 Left-axis deviation now present Left bundle-branch block now present Ventricular premature complex(es) no longer present Aberrant conduction of supraventricular beat(s) no longer present Myocardial infarct finding no longer present ST (T wave) deviation no longer present Electronically Signed On 05-27-2024 19:08:06 CDT by Rad Blackman M.D. [email or web address]
[2024-05-26 02:33] LABS: Basophils % 0.1 %; Hematocrit 28.3 % (37-53); Lymphocytes # 0.7 10^3/uL (0.8-4.8); Lymphocytes % 6.2 %; Mean Corpuscular HGB Conc 31.4 g/dL (30-55); Mean Corpuscular Volume 98.6 fl (82-101); Mean Platelet Volume 11.9 fL (7.4-10.4); Monocytes # 0.6 10^3/uL (0.2-0.9); Monocytes % 5.5 %; Neutrophils # 9.66 10^3/uL (1.8-7.7); Neutrophils % 87.5 %; Nucleated Red Blood Cells # 0.1 /100WBC; Nucleated Red Blood Cells % 0.7 %; Platelet Count 174 10^3/cmm (157-399); Red Blood Count 2.87 10^6/uL (3.85-5.65); Red Cell Distribution Width 22.8 % (12.1-15.1); White Blood Count 11.04 10^3/uL (3.29-11.43)
[2024-05-26 02:58] LABS: Magnesium 2.3 mg/dL (1.7-2.3)
[2024-05-26 03:06] LABS: Procalcitonin 0.43 ng/mL (0-0.5)
[2024-05-26 03:17] LABS: Albumin Level 3.2 g/dL (3.5-5.2); Alkaline Phosphatase 80 U/L (40-130); Anion Gap 19.4 (5-19); C Reactive Protein 30.1 mg/L (0.0-4.9); Calcium 8.8 mg/dL (8.5-10.5); Carbon Dioxide 21 mmol/L (22-29); Chloride 102 mmol/L (98-107); Creatinine Clr Calc Pharmacy 20.2676; Glucose 159 mg/dL (65-115); Osmolality Calculated 318 mOsm/kg (285-295); Potassium 5.4 mmol/L (3.5-5.1); Sodium 137 mmol/L (136-145); Total Bilirubin 2.2 mg/dL (0.15-1.2); Total Protein 6.2 g/dL (6.6-8.7)
[2024-05-26 03:28] LABS: Alanine Aminotransferase 995 U/L (0-41)
[2024-05-26 03:29] LABS: Aspartate Amino Transferase 1123 U/L (0-40)
[2024-05-26 03:32] LABS: Blood Urea Nitrogen 98 mg/dL (8-23)
[2024-05-26] MEDS: carvedilol 6.25 mg Tablet PO ×2 (10:19→17:25)
--- NOTE | 2024-05-26 11:35 | P.CONIM_ITS ---
<Statement entered by Ema Laboy MD - 05/28/24 17:58> Patient was evaluated and cared for in conjunction with an advanced practice practitioner. I personally examined the patient and reviewed the chart and all pertinent data including imaging, telemetry, and laboratory results. I discussed the patient in detail with the advanced practice practitioner. Please see their note for complete H&P testing result and agreed upon plan of care for the patient. 74-year-old male past medical history significant for cardiomyopathy atrial fibrillation CHF presented with elevated cardiac markers along with A-fib and heart failure we have been asked to assist in his care. Currently patient appeared to be well rate controlled denies any complaint including chest pain out of usual shortness of breath pain with apnea GENERAL: Patient is alert, awake and oriented x3. HEART: Regular S1 and S2. No murmur, rub or gallop. LUNGS: Clear to auscultate bilaterally. CENTRAL NERVOUS SYSTEM: Grossly nonfocal. EXTREMITIES: Lower extremities with out edema bilaterally. Assessment and plan Atrial fibrillation Elevated cardiac markers CHF Elevated heart markers most likely due to demand ischemia appear to be well compensated and rate controlled at this point we will continue current management no further assessment from ischemic point of view needed Providers/Reason For Consult 2 Consulting Physician/Specialty*: Ema Laboy MD Reason for Consult*: CHF exacerbation Requesting Physician: Dr. Vickers Attending Physician: Keny Vickers Primary Care Provider: Mally Neal MD History of Present Illness History of Present Illness Nash Cox is a 74 year old male who sees Dr. Kamara in the clinic with a history of A-fib, nonischemic cardiomyopathy, pulmonary hypertension, aortic regurg, status post bioprosthetic mitral valve replacement. He came into the emergency room about 3 days ago with weakness. The family had stated he was so weak he could barely stand up. Apparently he did have some chest pain at the time per ER's documentation and nitro's were given. At this time he is confused and family is not present so it is hard to get a good history. He had a fever and tested positive for COVID. He takes Digoxin at home. Dig level was high but now back to normal. Rates are controlled. Probnp was [id number]. Trop baseline was 100-101.2-103.5 delta positive. He was diuresed for CHF exacerbation and creatinine was increased at 3.1 so that is being held now. He appears well compensated from a heart failure standpoint.He is currently taking coreg 6.25 BID as well as Pradaxa. Echo showed EF of 20% with moderate aortic valve regurgitation. EF in 2020 was 32%. EKG showed afib. Review of Systems 2 Narrative: Review of systems not able to be obtained due to patient is confused. Medications/Allergies Home Medications ?Medication ?Instructions ?Recorded ?Confirmed ?Last Taken ?Type dabigatran etexilate 75 mg capsule 75 mg PO BID 05/24/24 05/23/24 History (Pradaxa) sacubitril 24 mg-valsartan 26 mg 1.5 tab PO BID #270 t abs 11/11/22 05/24/24 05/23/24 Rx tablet (Entresto) carvedilol 6.25 mg tablet (Coreg) 6.25 mg PO BID #180 tabs 08/17/23 05/24/24 Unknown Rx hydroxyzine HCl 25 mg tablet 25 mg PO Q6H PRN Anxiety/ sleep #10 02/18/24 05/24/24 Unknown Rx tabs trazodone 100 mg tablet 50 mg PO BEDTIME 02/18/2405/23/24 History furosemide 40 mg tablet 60 mg (1.5 x 40 mg) PO DAILY #180 03/03/24 05/24/24 Unknown Rx tabs digoxin 125 mcg (0.125 mg) tablet 125 mcg PO DIRECT ED #90 tabs 05/10/24 05/24/24 05/23/24 Rx alprazolam 0.25 mg tablet 0.25 mg PO TID PRN anxiety # 14 tabs 05/16/24 05/24/24 05/23/24 Rx buspirone 10 mg tablet 5 mg PO DAILY 05/24/2405/24 Unknown History colchicine 0.6 mg tablet 0.3 mg PO DAILY PRN gout 02/0705/24/24 Unknown History Allergies Allergy/AdvReac Type Severity Reaction Status Date / Time meperidine (From Demerol) Allergy Unknown unknown Verified 05/23/24 23:39 Current Medications Generic Name Dose Route Start Last Admin Trade Name Freq PRN Reason Stop Dose Admin Carvedilol 6.25 mg 05/24/24 09:00 05/26/24 10:19 Carvedilol 6.25 Mg Tablet PO 6.25 mg BID QUINTEN Administration Dabigatran 75 mg 05/24/24 09:00 05/26/24 10:19 Dabigatran 75 Mg Capsule PO 75 mg BID QUINTEN Administration PFSH Acute 2 PFSH: Medical History (Updated 05/26/24 @ 11:45 by Deisi Huddleston NP) Chronic kidney disease Aortic regurgitation Pulmonary hypertension CHF (congestive heart failure) Gynecomastia Iron deficiency anemia Cardiomyopathy, dilated, nonischemic Osteoarthritis Atrial fibrillation Chest pain Surgical History History of mitral valve replacement with bioprosthetic valve Patient had open heart surgery and mitral valve replacement by a porcine valve on 13 April 2015 at the [facility] in [place]. H/O mitral valve replacement H/O left inguinal hernia repair Status post right knee replacement History of right hip replacement Family History Mother Cancer Dementia Grandfather Lung disease Brother Stroke Denies family history of Diabetes CAD (coronary artery disease) Clotting disorder Chronic kidney disease (CKD) Suicide Anesthesia complication Bleeding disorder Social History Smoking and tobacco/nicotine status: never used tobacco/nicotine Alcohol intake: current Alcohol intake frequency: holidays/special occasions only Substance/Drug Use: never Vitals/I&O/Wt Last Vital Signs Temp 97.7 F 05/26/24 11:20 Pulse 88 05/26/24 11:20 Resp 21 H 05/26/24 11:20 BP 141/54 05/26/24 11:20 Pulse Ox 98 05/26/24 11:20 O2 Del Method Nasal Cannula 05/26/24 11:20 O2 Flow Rate 2 05/25/24 23:44 05/25/24 05/26/24 05/26/24 22:59 06:59 14:59 Intake Total 240 / 240 Output Total 150 / 150 Balance 90 / 90 Weight last 48 hrs Weight 142 lb 11.2 oz Weight 140 lb 9 oz Weight 144 lb 8 oz Physical Exam 2 Narrative: General: No apparent distress, appears cachectic HENMT: normoceophalic Muskuloskeletal: Full ROM, has pectus excavatum Respiratory: Normal respiratory effort, clear but bilateral lower lobes are slightly diminished consistent with possible atelectasis, no use of accessory muscles Cardio: No JVD, regular rate, irregularly irregular rhythm, S1 S2 normal, peripheral pulses 2+ radial palpated bilaterally GI: Normal to inspection, nondistended Extremities: Full ROM, normal, normal capillary refill, no cyanosis or edema Neuro: Patient is not alert and oriented to person place time or situation Skin: No rashes or lesions noted, no wounds Data 05/26/24 01:20 05/26/24 01:20 A&P Assessment and plan (1) Cardiomyopathy, dilated, nonischemic: (2) Atrial fibrillation: Qualifiers: Atrial fibrillation type: longstanding persistent Qualified Code(s): I 48.11 - Longstanding persistent atrial fibrillation (3) Chest pain: Qualifiers: Chest pain type: unspecified Qualified Code(s): R07.9 - Chest pain, unspecified (4) Atrial fibrillation with rapid ventricular response: (5) Congestive heart failure: Qualifiers: Heart failure type: systolic Heart failure chronicity: acute on chronic Qualified Code(s): I50.23 - Acute on chronic systolic (congestive) heart failure (6) COVID: Plan Patient came in with fever and signs and symptoms of CHF exacerbation. At this time patient appears well compensated from heart failure standpoint. Agree with holding diuretics at this time due to patient's creatinine is increased. Elevated troponin most likely due to demand ischemia. Ejection fraction has decreased to 20%. At this time we recommend continue current care with carvedilol. Rates are controlled this time. Continue to monitor HUGO carefully as well as creatinine. Continue current medical management for systolic heart failure. Thank you, Dr. Vickers, for allowing us to care for this 74 year old gentleman. PDMP PDMP Reviewed: Not Reviewed Consult Attestations 2 Medical Necessity Statement: Deferred to primary. Coding Level of Care Code Acute Code for [facility] Fwd Diagnoses Cardiomyopathy, dilated, nonischemic I42.0 Longstanding persistent atrial fibrillation I48.11 Atrial fibrillation type: longstanding persistent Chest pain, unspecified type R07.9 Chest pain type: unspecified Atrial fibrillation with rapid ventricular response I48.91 Acute on chronic systolic congestive heart failure I50.23 Heart failure type: systolic Heart failure chronicity: acute on chronic COVID U07.1
--- NOTE | 2024-05-26 13:17 | PM.CONSULT ---
Providers/Reason For Consult Consulting Physician/Specialty*: wilfrid marroquin md/ telenephrology Reason for Consult*: zoila , hyperkalemia Requesting Physician: Dr Linda Vickers Attending Physician: Keny Vickers Primary Care Provider: Mally Neal MD History of Present Illness History of Present Illness Nash Cox is a 74 year old male A-fib nonischemic cardiomyopathy with reduced EF (EF 20%), valvular heart(AI) disease, pulm HTN, bioprosthetic mitral valve replacement for valvular heart disease in 2015, gout, and iron deficiency anemia. Pt was admitted on 05-23-24 w/ fatigue, A-fib RVR, fevers, lethargy, SOB, generalized weakness, decreased appetite, and diarrhea. Symptoms began 10 days ago. In Er he was diagnosed w/ COVID-19 and acute on chronic HFrEF exacerbation. He was started on NC02, steroids, remdesivir, and iv furosemide. His entresto and digoxin were held. By May 25, 2024 he was having increased confusion and elevated digfoxin level- his digoxin was held. His cr at baseline is approximately 1.5 mg/dl. He presented w/ a cr of 1.5 mg/dl. He has developed oliguric stage 3 ZOILA and cr is now 3.1 mg/dl- and renal consult is called Review of Systems Narrative: the patient is weak lethargic short of breath poor appetite nausea itching and confused. Constipated and poor urine output. no edema. No chest pain or headaches. Medications/Allergies Home Medications ?Medication ?Instructions ?Recorded ?Confirmed ?Last Taken ?Type dabigatran etexilate 75 mg capsule 75 mg PO BID 03/31/19 05/24/24 05/23/24 History (Pradaxa) sacubitril 24 mg-valsartan 26 mg 1.5 tab PO BID #270 tabs 11/11/22 05/24/24 05/23/24 Rx tablet (Entresto) carvedilol 6.25 mg tablet (Coreg) 6.25 mg PO BID #180 tabs 08/17/23 05/24/24 Unknown Rx hydroxyzine HCl 25 mg tablet 25 mg PO Q6H PRN Anxiety/sleep #10 02/18/24 05/24/24 Unknown Rx tabs trazodone 100 mg tablet 50 mg PO BEDTIME 02/18/24 05/24/24 05/23/24 History furosemide 40 mg tablet 60 mg (1.5 x 40 mg) PO DAILY #180 03/03/24 05/24/24 Unknown Rx tabs digoxin 125 mcg (0.125 mg) tablet 125 mcg PO DIRECTED #90 tabs 05/10/24 05/24/24 05/23/24 Rx alprazolam 0.25 mg tablet 0.25 mg PO TID PRN anxiety #14 tabs 05/16/24 05/24/24 05/23/24 Rx buspirone 10 mg tablet 5 mg PO DAILY 05/24/24 05/24/24 Unknown History colchicine 0.6 mg tablet 0.3 mg PO DAILY PRN gout 05/24/24 05/24/24 Unknown History Allergies Allergy/AdvReac Type Severity Reaction Status Date / Time meperidine (From Demerol) Allergy Unknown unknown Verified 05/23/24 23:39 Current Medications Generic Name Dose Route Start Last Admin Trade Name Freq PRN Reason Stop Dose Admin Carvedilol 6.25 mg 05/24/24 09:00 05/26/24 10:19 Carvedilol 6.25 Mg Tablet PO 6.25 mg BID QUINTEN Administration Dabigatran 75 mg 05/24/24 09:00 05/26/24 10:19 Dabigatran 75 Mg Capsule PO 75 mg BID QUINTEN Administration PFSH Acute PFSH: Medical History (Updated 05/26/24 @ 13:31 by Moise Marroquin MD) Chronic kidney disease Aortic regurgitation Pulmonary hypertension CHF (congestive heart failure) Gynecomastia Iron deficiency anemia Cardiomyopathy, dilated, nonischemic Osteoarthritis Atrial fibrillation Chest pain Surgical History History of mitral valve replacement with bioprosthetic valve Patient had open heart surgery and mitral valve replacement by a porcine valve on 13 April 2015 at the [facility] in [place]. H/O mitral valve replacement H/O left inguinal hernia repair Status post right knee replacement History of right hip replacement Family History Mother Cancer Dementia Grandfather Lung disease Brother Stroke Denies family history of Diabetes CAD (coronary artery disease) Clotting disorder Chronic kidney disease (CKD) Suicide Anesthesia complication Bleeding disorder Social History Smoking and tobacco/nicotine status: never used tobacco/nicotine Alcohol intake: current Alcohol intake frequency: holidays/special occasions only Substance/Drug Use: never Vitals/I&O/Wt Last Vital Signs Temp 97.7 F 05/26/24 11:20 Pulse 88 05/26/24 11:20 Resp 21 H 05/26/24 11:20 BP 141/54 05/26/24 11:20 Pulse Ox 98 05/26/24 11:20 O2 Del Method Nasal Cannula 05/26/24 11:20 O2 Flow Rate 1.5 05/26/24 08:00 05/25/24 05/26/24 05/26/24 22:59 06:59 14:59 Intake Total 240 / 240 20 / 20 Output Total 150 / 150 Balance 90 / 90 20 / 20 Weight last 48 hrs Weight 64.728 kg Weight 63.758 kg Weight 65.544 kg Physical Exam Narrative: The patient appears ill in bed using nasal cannula oxygen. Vital signs noted. HEENT normocephalic atraumatic. Neck is supple I do not appreciate elevated JVP. Lungs dull bases no crackles. Heart irregular regular positive S1-S2. Abdomen is soft nontender nondistended positive bowel sounds. Extremities no edema poor pulses Neuro awake alert oriented x 2 mild asterixis. Data 05/26/24 01:20 05/26/24 01:20 A&P Assessment and plan (1) Acute kidney injury superimposed on CKD: 74-year-old gentleman history of heart failure reduced EF history of mitral valve replacement by porcine valve in 2016. History of aortic insufficiency, pulmonary hypertension iron deficiency anemia atrial fibrillation right hip replacement right knee replacement. Patient is here with COVID-19 and an acute on chronic exacerbation of heart failure reduced EF. 1. Patient has CKD stage III. Baseline creatinine is approximately 1.5 mg/dL. I do not have any old urinalyses. However urinalysis on admission was cloudy with trace protein 2+ blood trace leuk esterase. And 5-10 coarse granular casts with 9.9 hyaline cast consistent with possible ATN. 2. Acute on chronic renal failure I am concerned for prerenal azotemia versus ATN versus hepatorenal syndrome versus others. Will get a renal ultrasound. Agree with stopping diuretics. Blood pressure is well-controlled. Albumin is okay at 3.2. Check complements CELIA ANCA and hepatitis serologies. 3. Increased LFTs-can be shock liver from hypotension versus congestion. Or from cardiac etiology. 4. Anemia we will send iron studies B12 folate also check an SPEP and immunofixation given renal insufficiency and anemia. In February patient's hemoglobin was 12.6. 5. Will check ammonia level and also ABG given patient's confusion. 6. Mild hyperkalemia we will give Kayexalate. Will monitor urine output. Will monitor chemistries. I discussed in detail with the patient and his that he may need temporary hemodialysis. I explained that this is to remove toxins and fluids as necessary. Given the fact that the patient has a low EF with valvular heart disease and acute on chronic renal failure he is at increased need for possible dialysis. Digoxin level was elevated digoxin is currently on hold. The patient was seen and examined with the aid of a nurse using audiovisual equipment. The patient and consented to telehealth. And to dialysis as needed. Plan Please see above. PDMP PDMP Reviewed: Not Reviewed Consult Attestations Medical Necessity Statement: Acute on chronic heart failure reduced EF, increased LFTs, acute kidney injury, confusion hyperkalemia. Time Spent in Patient Care: Greater than 35 minutes (>than 50% of time spent in counselling and/or direct pt care on unit). Coding Level of Care Code Acute Code for Chg Fwd Diagnoses Acute kidney injury superimposed on CKD N17.9; N18.9
--- NOTE | 2024-05-26 13:38 | USR_ITS ---
PROCEDURE INFORMATION: Exam: US Retroperitoneal, Complete, Kidneys and Bladder Exam date and time: 05/26/2024 1:53 PM Age: 74 years old Clinical indication: Condition or disease; Other: Rehan TECHNIQUE: Imaging protocol: Real-time ultrasound of the retroperitoneum with image documentation. Complete exam focused on the bilateral kidneys and urinary bladder. COMPARISON: [place] liver [id number] 05/25/2024 9:26 PM FINDINGS: Right kidney: Normal. No stones. No hydronephrosis. Left kidney: Normal. No stones. No hydronephrosis. Urinary bladder: Unremarkable. US/US renal BI* [id number] IMPRESSION: Unremarkable kidneys and bladder.
[2024-05-26] MEDS: sodium polystyrene sulfonate 15 gm/60 mL Btl 30 GM PO (14:07)
[2024-05-26 14:33] LABS: ABG PCO2 34.7 mmHg (35-45); ABG PH Result 7.41 (7.35-7.45); Alveolar-Arterial Oxygen Gradi 5.8 mmHg (5-10); Arterial Blood Gas Hematocrit 28.3 % (42-52); Base Excess ABG -2.4 mmol/L (-2.0-2.0); Blood Gas Allen Test Pos; Blood Gas Operator Identificat glc; Blood Gas Sample Site Radial, right; Blood Gas Sample Type Arterial; Carboxyhemoglobin 2.4 %THgb (0.4-20.1); HCO3 ABG 21.8 mmol/L (22-26); Ionized Calcium Level - ABG 1.2 mmol/L (1.1-1.4); Methemoglobin 0.6 % (0.4-1.5); Oxygen Device NC; PO2 FiO2 Ratio Arterial Blood 385; Potassium Level - ABG 4.5 mmol/L (3.5-5.0); Total Hemoglobin 9.2 g/dL (14-18)
[2024-05-26 15:00] LABS: Reticulocyte % 5.6 % (0.5-2.0)
[2024-05-26 15:17] LABS: LAB Peripheral Smear Sent for Review
[2024-05-26 15:18] LABS: Uric Acid 18.8 mg/dL (3.4-7.0)
[2024-05-26 15:23] LABS: Creatine Phosphokinase 1069 U/L (39-308)
[2024-05-26 15:30] LABS: Lactate Dehydrogenase 2264 U/L (135-225)
[2024-05-26 15:35] LABS: Hepatitis C Virus Antibody Non-Reactive (Nonreactive)
[2024-05-26 15:45] LABS: Hepatitis B Core AB, Total Non-Reactive (Nonreactive); Hepatitis B Surface AB < 3.5 (11.5-1000); Hepatitis B Surface Antigen Non-Reactive (Nonreactive)
[2024-05-26 15:50] LABS: Ammonia 38 umol/L (16-60)
[2024-05-26] MEDS: midodrine 5 mg TABLET PO (17:25)
[2024-05-26] MEDS: acetaminophen 500 mg Tablet PO ×2 (17:25→22:17)
[2024-05-26 18:53] LABS: Bilirubin Urine Negative (Negative); Blood Urine Non-haemolysed trace (Negative); Glucose Urine UA Negative (Normal); Ketones Urine Trace (Negative); Leukocyte Esterase Urine Negative (Negative); Nitrate Urine Negative (Negative); Protein Urine Trace (Negative); Specific Gravity, Urine 1.017 (1.005-1.030); Urine Appearance Clear (CLEAR); Urine Color Yellow (Yellow)
[2024-05-26 18:58] LABS: Bacteria Urine None Seen /hpf; Hyaline Casts Urine 19.83 /lpf; RBC Urine 0-2 /hpf (0-2); WBC Urine 0-5 /hpf (0-5)
[2024-05-26 19:06] LABS: Potassium, Radom Urine 45 mmol/L; Urine Creatinine 105 mg/dL (39-259); Urine Random Sodium 37 mmol/L
[2024-05-26 19:23] LABS: Chloride Urine Random < 10 mmol/L
[2024-05-26 19:24] LABS: Urine Random Chloride < 10 mmol/L
[2024-05-26 19:29] LABS: UA Slide Review UA Slide Review Perf
[2024-05-26 19:31] LABS: C.Diff PCR (Lab) NEGATIVE (Negative)
[2024-05-26 19:31] LABS: Add Urine Culture? No
--- NOTE | 2024-05-26 20:18 | P.PN_ITS ---
Subjective 2 Subjective: 74-year-old male with a past medical his tory of paroxysmal atrial fibrillation, non-ischemic cardiomyopathy, valvular heart disease with aortic regurgitation, pulmonary hypertension, bioprosthetic mitral valve replacement for valvular heart disease in 2016, gout, and iron deficiency anemia presents with generalized weakness and fatigue for the past week. Patient was very confused. Unclear what is baseline was. Below information was obtained with review of records and discussion with staff. The patient was not feeling well for a week prior to arrival and initially came to the emergency room on 05/16/2024 with shortness of breath. He was noted to have tested positive for COVID-19 on 05/14/2024. At that time, he was suspected to have an anxiety attack and was discharged with alprazolam 0.25 mg TID PRN. Regarding his weakness, he was complaining that he was so weak he was not able to ambulate. Workup in the emergency room included an EKG which showed controlled atrial fibrillation. Chest X-ray showed cardiomegaly without pneumothorax, infiltrate, or consolidation. Labs showed WBC 6.4, hemoglobin 9.7, hematocrit 31, platelets 214, sodium 142, potassium 5.1, chloride 104, bicarbonate 23, BUN 43, and creatinine 1.5 (baseline around 1.5 due to chronic stage 3 kidney disease). Total bilirubin was mildly elevated at 1.9 with AST 32, ALT 11, and alkaline phosphatase 79. Troponin T was 100 at baseline, 101 at 120 minutes (delta 1.2), and 103 at 6 hours. Pro-BNP was significantly elevated at 38,557 compared to 10,280 on 04/15/2024. Urinalysis showed 2+ blood but was negative for leukocyte esterase and nitrites. COVID-19 PCR was positive, while RSV and influenza were negative. Chest X-ray in the ER revealed cardiomegaly with possible mild pulmonary vascular congestion, linear scarring , patchy infiltrates or atelectasis in the right mid lobe, and a suspected small right pleural effusion. In the emergency room, he was started on dexamethasone 6 mg PO daily for 10 days, given furosemide 40 mg once and continued at 40 mg daily, remdesivir 200 mg once, and continued on home medications including coricidin 2.25 mg BID and apixaban 75 mg BID. Digoxin was held due to elevated levels. A repeat echocardiogram was ordered. On room air, his oxygen saturation is 98% with a low-grade temperature of 99?F. Heart rate has trended up to 115 bpm despite carvedilol 6.25 mg BID. Blood pressure is 115/93. 05/25 Patient was noted to have increaseing confusion dicussed with son who stated this was new finding in the past week. He was noted to have an elevated dig level. today noted to have increasing creatinine. 05/26 at bedside. Noted to have very dark output, concern for bleeding. No fever, chills, nausea or vomiting. patient was still confused. sitter at bedside. Vitals/I&O/Wt Last Vital Signs Temp 97.6 F 05/26/24 15:52 Pulse 66 05/26/24 15:52 Resp 16 05/26/24 15:52 BP 127/56 05/26/24 15:52 Pulse Ox 96 05/26/24 15:52 O2 Del Method Nasal Cannula 05/26/24 15:52 O2 Flow Rate 1.5 05/26/24 08:00 05/26/24 05/26/24 05/26/24 06:59 14:59 22:59 Intake Total 240 / 240 20 / 20 50 / 70 Output Total 150 / 150 Balance 90 / 90 20 / 20 50 / 70 Weight last 48 hrs Weight 64.728 kg Weight 63.758 kg Physical Exam 2 Narrative: Confused Nonlabored respiration RRR MIld LE edema with stasis dermatitis Nondistended abdomen No active chest pain Irregularly irregular Data 05/26/24 01:20 05/26/24 01:20 Micro: Microbiology 05/26/24 15:40 Occult Blood (FIT) - Final Stool Routine Collection A&P Assessment and plan (1) Cardiomyopathy, dilated, nonischemic: (2) Congestive heart failure: Qualifiers: Heart failure chronicity: acute on chronic Heart failure type: systolic Qualified Code(s): I50.23 - Acute on chronic systolic (congestive) heart failure (3) Pulmonary hypertension: (4) History of mitral valve replacement with bioprosthetic valve: (5) Atrial fibrillation: Qualifiers: Atrial fibrillation type: longstanding persistent Qualified Code(s): I 48.11 - Longstanding persistent atrial fibrillation (6) COVID-19: (7) Hypoxemia: (8) Weakness: Plan COVID-19 Infection Acute systolic heart failure exacerbation Atrial Fibrillation Acute on chronic renal failure Acute encephalopathy Transaminitis Possible Bleeding Plan: Stopped decadron possibly contributing to mental status Hold diuretics given worsening renal failure Holding pradaxa Consulted Nephrology Repeat labs in am US renal and Liver noted - no acute Echo noted - worening EF Cardiology on board PDMP PDMP Reviewed: Not Reviewed Attestations 2 Medical Necessity Statement*: Patient will need over 2 midnight stay for eval and treatment Coding Level of Care Code Acute Code for Chg Fwd Diagnoses Cardiomyopathy, dilated, nonischemic I42.0 Acute on chronic systolic congestive heart failure I50.23 Heart failure chronicity: acute on chronic Heart failure type: systolic Pulmonary hypertension I27.20 History of mitral valve replacement with bioprosthetic valve Z95.3 Longstanding persistent atrial fibrillation I48.11 Atrial fibrillation type: longstanding persistent COVID-19 U07.1 Hypoxemia R09.02 Weakness R53.1
[2024-05-27] VITALS (9 sets, daily range): BP systolic 113–145; BP diastolic 40–55; PULSE 50–77; RESP 14–18; TEMP 36.3–36.4; O2SAT 93–99
[2024-05-27 02:27] LABS: Hematocrit 29.5 % (37-53); Lymphocytes # 0.8 10^3/uL (0.8-4.8); Lymphocytes % 5.1 %; Mean Corpuscular HGB Conc 31.2 g/dL (30-55); Mean Corpuscular Hemoglobin 31.3 pg (27-33); Mean Corpuscular Volume 100.3 fl (82-101); Mean Platelet Volume 12.7 fL (7.4-10.4); Monocytes # 0.8 10^3/uL (0.2-0.9); Monocytes % 5.3 %; Neutrophils # 13.96 10^3/uL (1.8-7.7); Neutrophils % 88.4 %; Nucleated Red Blood Cells # 0.1 /100WBC; Nucleated Red Blood Cells % 0.8 %; Platelet Count 219 10^3/cmm (157-399); Red Blood Count 2.94 10^6/uL (3.85-5.65); Red Cell Distribution Width 23.7 % (12.1-15.1); White Blood Count 15.78 10^3/uL (3.29-11.43)
[2024-05-27 02:49] LABS: Alanine Aminotransferase 656 U/L (0-41); Alkaline Phosphatase 76 U/L (40-130); Anion Gap 17.3 (5-19); Aspartate Amino Transferase 289 U/L (0-40); Calcium 8.4 mg/dL (8.5-10.5); Carbon Dioxide 23 mmol/L (22-29); Chloride 107 mmol/L (98-107); Creatinine Clr Calc Pharmacy 18.5807; Globulin 2.7 g/dL (1.3-4.6); Glucose 206 mg/dL (65-115); Iron 107 ug/dL (59-158); Magnesium 2.3 mg/dL (1.7-2.3); Osmolality Calculated 335 mOsm/kg (285-295); Phosphorus 4.9 mg/dL (2.5-4.5); Potassium 4.3 mmol/L (3.5-5.1); Sodium 143 mmol/L (136-145); Total Protein 5.7 g/dL (6.6-8.7)
[2024-05-27 03:00] LABS: Percent Saturation 79.2 % (20-50); Total Iron Binding Capacity 135 mcg/dl; Unsaturated Iron Binding 28 ug/dL (112-347)
[2024-05-27 03:03] LABS: 25 Hydroxy Vitamin D 32 ng/mL (30-100)
[2024-05-27 03:05] LABS: Ferritin 1442 ng/mL (30-400)
[2024-05-27 03:06] LABS: Blood Urea Nitrogen 104 mg/dL (8-23)
[2024-05-27 03:20] LABS: Parathyroid Hormone 199.8 pg/mL (15-65)
[2024-05-27 03:21] LABS: Calcium 8.4 mg/dL (8.5-10.5)
--- NOTE | 2024-05-27 04:32 | ECG_ITS ---
[facility] Test Date: 2024-05-27 Pat Name: Nash Cox Department: Room: 271 Gender: Male [employer]: : 1950 Requested By: Ema Vargas Order Number: [id number] Poonam MD: Rad Blackman M.D. Measurements Intervals [place] Rate: 70 P: 0 IN: 0 QRS: -44 QRSD: 138 T: 136 QT: 453 QTc: 491 Interpretive Statements ATRIAL FIBRILLATION WITH ABERRANT CONDUCTION OR VENTRICULAR PREMATURE COMPLEXES LEFT AXIS DEVIATION [QRS AXIS < -30] INTRAVENTRICULAR CONDUCTION DELAY [130+ ms QRS DURATION] POSSIBLE ANTERIOR MYOCARDIAL INFARCTION , OF INDETERMINATE AGE [30 ms Q WAVE IN V3/V4, OR R < 0.2 mV IN V4] Compared to ECG 05/26/2024 02:26:46 Ventricular premature complex(es) now present Aberrant conduction of supraventricular beat(s) now present Intraventricular conduction delay now present Myocardial infarct finding now present Left bundle-branch block no longer present Electronically Signed On 05-27-2024 19:04:39 CDT by Rad Blcakman M.D. [id number] [id number]
--- NOTE | 2024-05-27 08:12 | P.PN_ITS ---
Subjective 2 Subjective: feels better. no n/v/f/c/simmons/d/sob Medications: Reviewed: Yes Medication Review Details: Current Medications Acetaminophen (Acetaminophen 500 Mg Tablet) 500 mg PO Q4H PRN PRN Reason: fever Last Admin: 05/26/24 22:17 Dose: 500 mg Albuterol/Ipratropium (Ipratropium-Albuterol 3 Ml Neb) 3 ml INHALATION Q6H PRN PRN Reason: SHORTNESS OF BREATH Carvedilol (Carvedilol 6.25 Mg Tablet) 6.25 mg PO BID [facility] Last Admin: 05/26/24 17:25 Dose: 6.25 mg Midodrine (Midodrine 5 Mg Tablet) 5 mg PO BID [facility] Last Admin: 05/26/24 17:25 Dose: 5 mg Ondansetron HCl (Ondansetron 2 Mg/Ml Sdv 2 Ml) 4 mg IVP Q6H PRN PRN Reason: NAUSEA AND VOMITING Senna/Docusate Sodium (Sennosides-Docusate Tablet) 1 tab PO DAILY [facility] Vitals/I&O/Wt Last Vital Signs Temp 97.3 F L 05/27/24 04:00 Pulse 70 05/27/24 07:52 Resp 16 05/27/24 07:52 BP 126/51 05/27/24 07:52 Pulse Ox 98 05/27/24 07:52 O2 Del Method Nasal Cannula 05/27/24 07:52 O2 Flow Rate 2 05/27/24 04:00 05/26/24 05/27/24 05/27/24 22:59 06:59 14:59 Intake Total 170 / 190 Output Total 200 / 200 Balance 170 / 190 -200 / -10 Weight last 48 hrs Weight 62.369 kg Weight 64.728 kg Physical Exam 2 Narrative: The patient appears thin in bed using nasal cannula oxygen. Vital signs noted. HEENT normocephalic atraumatic. Neck is supple I do not appreciate elevated JVP. Lungs -good air movement b/l Heart RRR, positive S1-S2. Abdomen is soft nontender nondistended positive bowel sounds. Extremities : + b/l ankle edema poor pulses Neuro awake alert oriented x 3, no asterixis Data 05/27/24 02:15 05/27/24 02:15 Micro: Microbiology 05/26/24 15:40 Occult Blood (FIT) - Final Stool Routine Collection A&P Assessment and plan (1) Acute kidney injury superimposed on CKD: 74-year-old gentleman history of heart failure reduced EF history of mitral valve replacement by porcine valve in 2016. History of aortic insufficiency, pulmonary hypertension iron deficiency anemia atrial fibrillation right hip replacement right knee replacement. Patient is here with COVID-19 and an acute on chronic exacerbation of heart failure reduced EF. 1. Patient has CKD stage III. Baseline creatinine is approximately 1.5 mg/dL. I do not have any old urinalyses. However urinalysis on admission was cloudy with trace protein 2+ blood trace leuk esterase. And 5-10 coarse granular casts with 9.9 hyaline cast consistent with possible ATN. PTH 200 2. Acute on chronic renal failure I am concerned for prerenal azotemia versus ATN versus hepatorenal syndrome versus others. normal renal ultrasound. mild rise in cr off of diuretics. Blood pressure is well-controlled. Albumin is okay at 3.2. -will give 1 liter ivf- as urine chloride was low Check complements CELIA ANCA -hepatitis serologies are negative. -ck 1069- not high enough to cause CAROL 3. Increased LFTs-improving as bp is improving 4. Anemia - iron sat of 79%- he is iron overloaded, ferritin 1442 - SPEP and immunofixation are pending. 5. Will check ammonia level and also ABG given patient's confusion. 6. Mild hyperkalemia -improved 7. leukocytosis 8. blood gas- 7.41/34.7/ 21.8 -resp alkalosis and mild met acidosis Will monitor urine output. Will monitor chemistries. I discussed in detail with the patient and his that he may need temporary hemodialysis. I explained that this is to remove toxins and fluids as necessary. Given the fact that the patient has a low EF with valvular heart disease and acute on chronic renal failure he is at increased need for possible dialysis. Digoxin level was elevated digoxin is currently on hold. The patient was seen and examined with the aid of a nurse using audiovisual equipment. The patient and consented to telehealth. And to dialysis as needed. Plan Please see above. PDMP PDMP Reviewed: Not Reviewed Attestations 2 Medical Necessity Statement*: carol, ams- improving Time Spent in Patient Care: Greater than 35 minutes (>than 50% of time spent in counselling and/or direct pt care on unit) . Coding Level of Care Code Acute Code for Chg Fwd Diagnoses Acute kidney injury superimposed on CKD N17.9; N18.9
[2024-05-27] MEDS: midodrine 5 mg TABLET PO ×2 (08:56→19:22)
[2024-05-27] MEDS: lactated ringers 1,000 ML 75 ML IV (08:58)
[2024-05-27 10:01] LABS: Ammonia 41 umol/L (16-60)
--- NOTE | 2024-05-27 10:30 | P.PN_ITS ---
<Statement entered by Ema Laboy MD - 05/28/24 17:11> Patient was evaluated and cared for in conjunction with an advanced practice practitioner. I personally examined the patient and reviewed the chart and all pertinent data including imaging, telemetry, and laboratory results. I discussed the patient in detail with the advanced practice practitioner. Please see their note for complete H&P testing result and agreed upon plan of care for the patient. Subjective 2 Subjective: Patient is actually much more alert this morning. Denies chest pain or shortness of breath. Vital signs are stable. Vitals/I&O/Wt Last Vital Signs Temp 97.3 F L 05/27/24 04:00 Pulse 50 L 05/27/24 08:25 Resp 18 05/27/24 08:25 BP 126/51 05/27/24 07:52 Pulse Ox 93 05/27/24 08:25 O2 Del Method Nasal Cannula 05/27/24 08:25 O2 Flow Rate 2 05/27/24 08:25 05/26/24 05/27/24 05/27/24 22:59 06:59 14:59 Intake Total 170 / 190 Output Total 200 / 200 Balance 170 / 190 -200 / -10 Weight last 48 hrs Weight 137 lb 8 oz Weight 142 lb 11.2 oz Physical Exam 2 Narrative: General: No apparent distress, appears cachectic HENMT: normoceophalic Muskuloskeletal: Full ROM, has pectus excavatum Respiratory: Normal respiratory effort, clear but bilateral lower lobes are slightly diminished consistent with possible atelectasis, no use of accessory muscles Cardio: No JVD, regular rate, irregularly irregular rhythm, S1 S2 normal, peripheral pulses 2+ radial palpated bilaterally, systolic murmur present aortic space III/ GI: Normal to inspection, nondistended Extremities: Full ROM, normal, normal capillary refill, no cyanosis or edema Neuro: Patient alert and oriented to person, place, not to situation or time Skin: No rashes or lesions noted, no wounds Data 05/27/24 02:15 05/27/24 02:15 Micro: Microbiology 05/26/24 15:40 Occult Blood (FIT) - Final Stool Routine Collection A&P Assessment and plan (1) Cardiomyopathy, dilated, nonischemic: (2) Atrial fibrillation: Qualifiers: Atrial fibrillation type: longstanding persistent Qualified Code(s): I 48.11 - Longstanding persistent atrial fibrillation (3) Chest pain: Qualifiers: Chest pain type: unspecified Qualified Code(s): R07.9 - Chest pain, unspecified (4) Atrial fibrillation with rapid ventricular response: (5) Congestive heart failure: Qualifiers: Heart failure chronicity: acute on chronic Heart failure type: systolic Qualified Code(s): I50.23 - Acute on chronic systolic (congestive) heart failure (6) COVID: Plan Patient appears well compensated from a heart failure standpoint. VSS. Creatintine has increased to 3.4, so recommend continuing to hold on diuresis. Rates are controlled. Continue Pradaxa for stroke prophylaxis. PDMP PDMP Reviewed: Not Reviewed Attestations 2 Medical Necessity Statement*: Deferred to primary. Coding Level of Care Code Acute Code for [facility] Fwd Diagnoses Cardiomyopathy, dilated, nonischemic I42.0 Longstanding persistent atrial fibrillation I48.11 Atrial fibrillation type: longstanding persistent Chest pain, unspecified type R07.9 Chest pain type: unspecified Atrial fibrillation with rapid ventricular response I48.91 Acute on chronic systolic congestive heart failure I50.23 Heart failure chronicity: acute on chronic Heart failure type: systolic COVID U07.1
[2024-05-27] MEDS: acetaminophen 500 mg Tablet PO ×2 (11:25→19:21)
--- NOTE | 2024-05-27 12:09 | P.PN_ITS ---
Subjective 2 Subjective: 74-year-old male with a past medical his tory of paroxysmal atrial fibrillation, non-ischemic cardiomyopathy, valvular heart disease with aortic regurgitation, pulmonary hypertension, bioprosthetic mitral valve replacement for valvular heart disease in 2016, gout, and iron deficiency anemia presents with generalized weakness and fatigue for the past week. Patient was very confused. Unclear what is baseline was. Below information was obtained with review of records and discussion with staff. The patient was not feeling well for a week prior to arrival and initially came to the emergency room on 05/16/2024 with shortness of breath. He was noted to have tested positive for COVID-19 on 05/14/2024. At that time, he was suspected to have an anxiety attack and was discharged with alprazolam 0.25 mg TID PRN. Regarding his weakness, he was complaining that he was so weak he was not able to ambulate. Workup in the emergency room included an EKG which showed controlled atrial fibrillation. Chest X-ray showed cardiomegaly without pneumothorax, infiltrate, or consolidation. Labs showed WBC 6.4, hemoglobin 9.7, hematocrit 31, platelets 214, sodium 142, potassium 5.1, chloride 104, bicarbonate 23, BUN 43, and creatinine 1.5 (baseline around 1.5 due to chronic stage 3 kidney disease). Total bilirubin was mildly elevated at 1.9 with AST 32, ALT 11, and alkaline phosphatase 79. Troponin T was 100 at baseline, 101 at 120 minutes (delta 1.2), and 103 at 6 hours. Pro-BNP was significantly elevated at 38,557 compared to 10,280 on 04/15/2024. Urinalysis showed 2+ blood but was negative for leukocyte esterase and nitrites. COVID-19 PCR was positive, while RSV and influenza were negative. Chest X-ray in the ER revealed cardiomegaly with possible mild pulmonary vascular congestion, linear scarring , patchy infiltrates or atelectasis in the right mid lobe, and a suspected small right pleural effusion. In the emergency room, he was started on dexamethasone 6 mg PO daily for 10 days, given furosemide 40 mg once and continued at 40 mg daily, remdesivir 200 mg once, and continued on home medications including coricidin 2.25 mg BID and apixaban 75 mg BID. Digoxin was held due to elevated levels. A repeat echocardiogram was ordered. On room air, his oxygen saturation is 98% with a low-grade temperature of 99?F. Heart rate has trended up to 115 bpm despite carvedilol 6.25 mg BID. Blood pressure is 115/93. 05/25 Patient was noted to have increaseing confusion dicussed with son who stated this was new finding in the past week. He was noted to have an elevated dig level. today noted to have increasing creatinine. 05/26 at bedside. Noted to have very dark output, concern for bleeding. No fever, chills, nausea or vomiting. patient was still confused. sitter at bedside. 05/27 Patient was more alert however still confused. Had a lengthy discussion with patients family particularly his [id number] and son. They had requested a change in his code status pace tender prior discussions with patient that he wanted to be DNR. They had wanted to discharge home with hospice. Prior to discharge however they did want to continue current management and prior to his comfort. Vitals/I&O/Wt Last Vital Signs Temp 97.3 F L 05/27/24 11:30 Pulse 66 05/27/24 11:30 Resp 14 05/27/24 11:30 BP 119/49 05/27/24 11:30 Pulse Ox 99 05/27/24 11:30 O2 Del Method Nasal Cannula 05/27/24 11:30 O2 Flow Rate 2 05/27/24 08:25 05/26/24 05/27/24 05/27/24 22:59 06:59 14:59 Intake Total 170 / 190 Output Total 200 / 200 Balance 170 / 190 -200 / -10 Weight last 48 hrs Weight 62.369 kg Weight 64.728 kg Physical Exam 2 Narrative: Confused Nonlabored respiration RRR MIld LE edema with stasis dermatitis Nondistended abdomen No active chest pain Irregularly irregular Data 05/28/24 06:48 05/28/24 06:48 Micro: Microbiology 05/26/24 15:40 Occult Blood (FIT) - Final Stool Routine Collection A&P Assessment and plan (1) Cardiomyopathy, dilated, nonischemic: (2) Congestive heart failure: Qualifiers: Heart failure chronicity: acute on chronic Heart failure type: systolic Qualified Code(s): I50.23 - Acute on chronic systolic (congestive) heart failure (3) Pulmonary hypertension: (4) History of mitral valve replacement with bioprosthetic valve: (5) Atrial fibrillation: Qualifiers: Atrial fibrillation type: longstanding persistent Qualified Code(s): I 48.11 - Longstanding persistent atrial fibrillation (6) COVID-19: (7) Hypoxemia: (8) Weakness: Plan COVID-19 Infection - Positive COVID-19 PCR on 05/11 - Started on dexamethasone 6 mg daily however this was stopped due to suspected steroid induced agitaition/mental status - After stopping he did improve. Plan: 1. Supportive care Acute Systolic Heart Failure Exacerbation - Worsening heart failure with ejection fraction decreased to 20% from 36% previously. - Significantly elevated pro-BNP at 38,557 compared to 10,280 on 04/15/2024. - Chest X-ray showing cardiomegaly with possible mild pulmonary vascular congestion. Plan: 1. Holding on diuresis due to renal failure 2. Patient does not appear to be volume overloaded currenlty 3. on IVF per nephrology Atrial Fibrillation - EKG in ER showed controlled atrial fibrillation. - On Pradaxa 75 mg BID and carvedilol 6.25 mg BID at home. - Previously also on digoxin Plan: 1. Continue pradaxa however monitor for bleeding 2. Coreg held for hypotension 3. Telemetry monitoring for arrhythmias. Acute on Chronic Renal Failure - Creatinine elevated to 3.0 from baseline of 1.5 in the setting of chronic stage 3 kidney disease. - On IV fluids currently with nephrology following. Plan: 1. Continue IV fluids and titrate based on volume status and electrolytes. 2. Avoid nephrotoxic medications. 3. Renal dosing of medications as needed. 4. Nephrology ton board 5. Renal US normal Acute Encephalopathy - Patient was very confused on arrival,. Etiology is multifactorial Plan: 1. Now confused but less agitated. Transaminitis - AST and ALT significantly elevated on 05/25/2024, trending down currently. - Negative hepatitis panel. - Liver ultrasound showing multiple simple cysts. - Possibly due to shock liver vs passive congestion Plan: 1. Trend liver function tests and monitor for signs of liver failure. 2. Avoid hepatotoxic medications. Disposition: - Code status changed to AND. Plan to return to home with hospice at discharge. PDMP PDMP Reviewed: Not Reviewed Attestations 2 Medical Necessity Statement*: Patient will need over 2 midnight stay for eval and treatment Coding Level of Care Code Acute Code for Chg Fwd Diagnoses Cardiomyopathy, dilated, nonischemic I42.0 Acute on chronic systolic congestive heart failure I50.23 Heart failure chronicity: acute on chronic Heart failure type: systolic Pulmonary hypertension I27.20 History of mitral valve replacement with bioprosthetic valve Z95.3 Longstanding persistent atrial fibrillation I48.11 Atrial fibrillation type: longstanding persistent COVID-19 U07.1 Hypoxemia R09.02 Weakness R53.1
--- NOTE | 2024-05-27 13:15 | ECG_ITS ---
iConclude Test Date: 2024-05-27 Pat Name: Nash Cox Department: Room: 271 Gender: Male [employer] Worker: : 1950 Requested By: Keny Vickers Order Number: [id number] Poonam MD: Rad Blackman M.D. Measurements Intervals [place] Rate: 49 P: 0 WI: 0 QRS: -43 QRSD: 133 T: 146 QT: 429 QTc: 390 Interpretive Statements ATRIAL FIBRILLATION WITH SLOW VENTRICULAR RESPONSE LEFT AXIS DEVIATION [QRS AXIS < -30] INTRAVENTRICULAR CONDUCTION DELAY [130+ ms QRS DURATION] POSSIBLE ANTERIOR MYOCARDIAL INFARCTION , PROBABLY OLD [30 ms Q WAVE IN V3/V4, OR R < 0.2 mV IN V4] Compared to ECG 05/27/2024 04:38:55 Ventricular premature complex(es) no longer present Aberrant conduction of supraventricular beat(s) no longer present Myocardial infarct finding still present Electronically Signed On 05-27-2024 19:17:48 CDT by Rad Blackman M.D. [email or web address]
--- NOTE | 2024-05-27 14:46 | PC.NURSE ---
Patient and his family have been discussing Hospice and end-of-life decisions today and patient became obviously anxious, stating that he was just nervous . I called and spoke with Dr. Vickers and he states he will place a PRN order for something for patient. I presented to patient's room and informed him and his family of this. They verbalize understanding. Patient's spouse is present and states she would like for Dr. Vickers to speak with her [id number] with an update as she has experience with this type of situation. Dr. Vickers had stated it would be probably another hour before he could round in-person, but would be happy to call them to update them. Patient's spouse provided verbal permission for us to speak with her [id number], Rashida at .
[2024-05-27] MEDS: ALPRAZolam 0.5 mg Tablet PO (15:08)
[2024-05-27 17:20] LABS: Anti-Double Strand DNA AB <1 IU/mL
[2024-05-27 17:54] LABS: PROTEIN, TOTAL 5.5 g/dL (6.1-8.1)
[2024-05-27] MEDS: OLANZapine 10 mg VIAL IM (19:22)
[2024-05-28] VITALS (9 sets, daily range): BP systolic 105–126; BP diastolic 47–56; PULSE 53–71; RESP 15–18; TEMP 36.4–36.6; O2SAT 94–100
[2024-05-28] MEDS: ALPRAZolam 0.5 mg Tablet PO ×2 (03:24→16:52)
[2024-05-28 07:07] LABS: Basophils % 0.1 %; Eosinophils # 0.1 10^3/uL (0.0-0.8); Eosinophils % 0.8 %; Hematocrit 25.4 % (37-53); Lymphocytes # 0.9 10^3/uL (0.8-4.8); Lymphocytes % 11.6 %; Mean Corpuscular HGB Conc 29.9 g/dL (30-55); Mean Corpuscular Hemoglobin 31.5 pg (27-33); Mean Corpuscular Volume 105.4 fl (82-101); Mean Platelet Volume 12.5 fL (7.4-10.4); Monocytes # 0.6 10^3/uL (0.2-0.9); Monocytes % 7.8 %; Neutrophils # 6.03 10^3/uL (1.8-7.7); Nucleated Red Blood Cells # 0.1 /100WBC; Nucleated Red Blood Cells % 0.8 %; Platelet Count 181 10^3/cmm (157-399); Red Blood Count 2.41 10^6/uL (3.85-5.65); Red Cell Distribution Width 23.9 % (12.1-15.1); White Blood Count 7.73 10^3/uL (3.29-11.43)
[2024-05-28 07:35] LABS: Alanine Aminotransferase 484 U/L (0-41); Albumin Level 2.4 g/dL (3.5-5.2); Alkaline Phosphatase 68 U/L (40-130); Aspartate Amino Transferase 208 U/L (0-40); Carbon Dioxide 23 mmol/L (22-29); Chloride 112 mmol/L (98-107); Creatinine Clr Calc Pharmacy 21.2785; Globulin 2.3 g/dL (1.3-4.6); Glucose 97 mg/dL (65-115); Magnesium 2.4 mg/dL (1.7-2.3); Osmolality Calculated 336 mOsm/kg (285-295); Phosphorus 4.8 mg/dL (2.5-4.5); Sodium 147 mmol/L (136-145); Total Bilirubin 1.4 mg/dL (0.15-1.2); Total Protein 4.7 g/dL (6.6-8.7)
[2024-05-28 07:48] LABS: Anion Gap 16.3 (5-19); Potassium 4.3 mmol/L (3.5-5.1)
[2024-05-28 07:50] LABS: Blood Urea Nitrogen 103 mg/dL (8-23)
--- NOTE | 2024-05-28 09:01 | P.PN_ITS ---
Subjective 2 Subjective: Patient was seen and examined with the aid of a nurse. Patient is lethargic not following commands. Responds to touch. Had nonsustained V. tach overnight. Medications: Reviewed: Yes Medication Review Details: Current Medications Acetaminophen (Acetaminophen 500 Mg Tablet) 500 mg PO Q4H PRN PRN Reason: fever Last Admin: 05/27/24 19:21 Dose: 500 mg Albuterol/Ipratropium (Ipratropium-Albuterol 3 Ml Neb) 3 ml INHALATION Q6H PRN PRN Reason: SHORTNESS OF BREATH Alprazolam (Alprazolam 0.5 Mg Tablet) 0.5 mg PO Q12H PRN PRN Reason: ANXIETY Last Admin: 05/28/24 03:24 Dose: 0.5 mg Carvedilol (Carvedilol 6.25 Mg Tablet) 6.25 mg PO BID [facility] Last Admin: 05/27/24 17:15 Dose: Not Given Dabigatran (Dabigatran 75 Mg Capsule) 75 mg PO BID [facility] Last Admin: 05/27/24 19:21 Dose: 75 mg Midodrine (Midodrine 5 Mg Tablet) 5 mg PO BID [facility] Last Admin: 05/27/24 19:22 Dose: 5 mg Ondansetron HCl (Ondansetron 2 Mg/Ml Sdv 2 Ml) 4 mg IVP Q6H PRN PRN Reason: NAUSEA AND VOMITING Senna/Docusate Sodium (Sennosides-Docusate Tablet) 1 tab PO DAILY [facility] Vitals/I&O/Wt Last Vital Signs Temp 97.8 F 05/28/24 07:28 Pulse 60 05/28/24 07:56 Resp 16 05/28/24 07:56 BP 121/56 05/28/24 07:28 Pulse Ox 96 05/28/24 07:56 O2 Del Method Nasal Cannula 05/28/24 07:56 O2 Flow Rate 2 05/28/24 08:00 05/27/24 05/28/24 05/28/24 22:59 06:59 14:59 Intake Total 1000 / 1000 Output Total 500 / 500 200 / 700 Balance 500 / 500 -200 / 300 Weight last 48 hrs Weight 66.587 kg Weight 62.369 kg Physical Exam 2 Narrative: The patient appears thin in bed using nasal cannula oxygen. Vital signs noted. The patient is sleeping not following verbal commands. Minimally responsive to touch and noxious stimuli. HEENT normocephalic atraumatic. Lungs -good air movement b/l Heart RRR, positive S1-S2. Abdomen is soft nontender nondistended positive bowel sounds. Extremities : + b/l ankle edema poor pulses Neuro -responsive to painful stimuli. Patient is sleeping not responding to voice or commands. Urinary Catheter Management: Huber: Cath Placed During This Visit: yes Reason for Continuing Indwelling Catheter: Acute Urinary Retention or Obstruction Urinary Catheter Date of Insertion: 05/26/24 Urinary Catheter Time of Insertion: 18:30 Data 05/28/24 06:48 05/28/24 06:48 A&P Assessment and plan (1) Acute kidney injury superimposed on CKD: 74-year-old gentleman history of heart failure reduced EF history of mitral valve replacement by porcine valve in 2016. History of aortic insufficiency, pulmonary hypertension iron deficiency anemia atrial fibrillation right hip replacement right knee replacement. Patient is here with COVID-19 and an acute on chronic exacerbation of heart failure reduced EF. 1. Patient has CKD stage III. Baseline creatinine is approximately 1.5 mg/dL. I do not have any old urinalyses. However urinalysis on admission was cloudy with trace protein 2+ blood trace leuk esterase. And 5-10 coarse granular casts with 9.9 hyaline cast consistent with possible ATN. PTH 200 2. Acute on chronic renal failure I am concerned for prerenal azotemia versus ATN versus hepatorenal syndrome versus others. normal renal ultrasound. mild rise in cr off of diuretics. Blood pressure is well-controlled. Albumin is okay at 3.2. -will give 1 ivf- as urine chloride was low Check complements CELIA ANCA -hepatitis serologies are negative. -ck 1069- not high enough to cause CAROL 3. Hyponatremia patient is not drinking enough fluids. Will give hypotonic fluids. Monitor. 4. Anemia - iron sat of 79%- he is iron overloaded, ferritin 1442 - SPEP and immunofixation are pending. 5. normal ammonia level 6. leukocytosis improving 8. AMS 9. NSVT as per cariology The patient was seen and examined with the aid of a nurse using audiovisual equipment. Plan Please see above. PDMP PDMP Reviewed: Not Reviewed Attestations 2 Medical Necessity Statement*: ams, CAROL, anemia Time Spent in Patient Care: 16 - 35 minutes (>than 50% of time sp ent in counselling and/or direct pt care on unit) . Coding Level of Care Code Acute Code for Chg Fwd Diagnoses Acute kidney injury superimposed on CKD N17.9; N18.9
[2024-05-28] MEDS: midodrine 5 mg TABLET PO ×2 (09:25→16:52)
[2024-05-28] MEDS: carvedilol 6.25 mg Tablet PO ×2 (09:25→16:52)
[2024-05-28] MEDS: sodium chloride 0.45% 1,000 ML 75 ML IV ×2 (09:26→22:18)
--- NOTE | 2024-05-28 11:06 | PC.NURSE ---
This nurse gave patients , Corina, an update via phone at 1106am.
[2024-05-28] MEDS: TRAMadol 50 mg Tablet PO (16:52)
--- NOTE | 2024-05-28 19:48 | P.PN_ITS ---
Subjective 2 Subjective: 74-year-old male with a past medical his tory of paroxysmal atrial fibrillation, non-ischemic cardiomyopathy, valvular heart disease with aortic regurgitation, pulmonary hypertension, bioprosthetic mitral valve replacement for valvular heart disease in 2016, gout, and iron deficiency anemia presents with generalized weakness and fatigue for the past week. Patient was very confused. Unclear what is baseline was. Below information was obtained with review of records and discussion with staff. The patient was not feeling well for a week prior to arrival and initially came to the emergency room on 05/16/2024 with shortness of breath. He was noted to have tested positive for COVID-19 on 05/14/2024. At that time, he was suspected to have an anxiety attack and was discharged with alprazolam 0.25 mg TID PRN. Regarding his weakness, he was complaining that he was so weak he was not able to ambulate. Workup in the emergency room included an EKG which showed controlled atrial fibrillation. Chest X-ray showed cardiomegaly without pneumothorax, infiltrate, or consolidation. Labs showed WBC 6.4, hemoglobin 9.7, hematocrit 31, platelets 214, sodium 142, potassium 5.1, chloride 104, bicarbonate 23, BUN 43, and creatinine 1.5 (baseline around 1.5 due to chronic stage 3 kidney disease). Total bilirubin was mildly elevated at 1.9 with AST 32, ALT 11, and alkaline phosphatase 79. Troponin T was 100 at baseline, 101 at 120 minutes (delta 1.2), and 103 at 6 hours. Pro-BNP was significantly elevated at 38,557 compared to 10,280 on 04/15/2024. Urinalysis showed 2+ blood but was negative for leukocyte esterase and nitrites. COVID-19 PCR was positive, while RSV and influenza were negative. Chest X-ray in the ER revealed cardiomegaly with possible mild pulmonary vascular congestion, linear scarring , patchy infiltrates or atelectasis in the right mid lobe, and a suspected small right pleural effusion. In the emergency room, he was started on dexamethasone 6 mg PO daily for 10 days, given furosemide 40 mg once and continued at 40 mg daily, remdesivir 200 mg once, and continued on home medications including coricidin 2.25 mg BID and apixaban 75 mg BID. Digoxin was held due to elevated levels. A repeat echocardiogram was ordered. On room air, his oxygen saturation is 98% with a low-grade temperature of 99?F. Heart rate has trended up to 115 bpm despite carvedilol 6.25 mg BID. Blood pressure is 115/93. 05/25 Patient was noted to have increaseing confusion dicussed with son who stated this was new finding in the past week. He was noted to have an elevated dig level. today noted to have increasing creatinine. 05/26 at bedside. Noted to have very dark output, concern for bleeding. No fever, chills, nausea or vomiting. patient was still confused. sitter at bedside. 05/27 Patient was more alert however still confused. Had a lengthy discussion with patients family particularly his [id number] and son. They had requested a change in his code status pace tender prior discussions with patient that he wanted to be DNR. They had wanted to discharge home with hospice. Prior to discharge however they did want to continue current management and prior to his comfort. 05/28 No overnight clinical events. Vitals/I&O/Wt Last Vital Signs Temp 97.9 F 05/28/24 15:38 Pulse 71 05/28/24 15:38 Resp 17 05/28/24 15:38 BP 105/49 05/28/24 15:38 Pulse Ox 94 05/28/24 15:38 O2 Del Method Room Air 05/28/24 15:38 O2 Flow Rate 1.5 05/28/24 11:24 05/28/24 05/28/24 05/28/24 06:59 14:59 22:59 Intake Total 120 / 120 120 / 240 Output Total 200 / 700 350 / 350 Balance -200 / 300 -230 / -230 120 / -110 Weight last 48 hrs Weight 66.587 kg Weight 62.369 kg Physical Exam 2 Narrative: Confused Nonlabored respiration RRR MIld LE edema with stasis dermatitis Nondistended abdomen No active chest pain Irregularly irregular Urinary Catheter Management: Huber: Cath Placed During This Visit: yes Reason for Continuing Indwelling Catheter: Acute Urinary Retention or Obstruction Urinary Catheter Date of Insertion: 05/26/24 Urinary Catheter Time of Insertion: 18:30 Data 05/28/24 06:48 05/28/24 06:48 A&P Assessment and plan (1) Acute kidney injury superimposed on CKD: (2) Cardiomyopathy, dilated, nonischemic: (3) Congestive heart failure: Qualifiers: Heart failure chronicity: acute on chronic Heart failure type: systolic Qualified Code(s): I50.23 - Acute on chronic systolic (congestive) heart failure (4) Pulmonary hypertension: (5) History of mitral valve replacement with bioprosthetic valve: (6) Atrial fibrillation: Qualifiers: Atrial fibrillation type: longstanding persistent Qualified Code(s): I 48.11 - Longstanding persistent atrial fibrillation (7) COVID-19: (8) Hypoxemia: (9) Weakness: Plan Acute Systolic Heart Failure Exacerbation - Worsening heart failure with ejection fraction decreased to 20% from 36% previously. - Significantly elevated pro-BNP at 38,557 compared to 10,280 on 04/15/2024. - Chest X-ray showing cardiomegaly with possible mild pulmonary vascular congestion. Plan: 1. Holding on diuresis due to renal failure 2. Patient does not appear to be volume overloaded currenlty 3. on IVF per nephrology 4. GDMT as tolerated Atrial Fibrillation - EKG in ER showed controlled atrial fibrillation. - On Pradaxa 75 mg BID and carvedilol 6.25 mg BID at home. - Previously also on digoxin Plan: 1. Continue pradaxa however monitor for bleeding 2. Coreg held for hypotension 3. Telemetry monitoring for arrhythmias. Acute on Chronic Renal Failure - Creatinine elevated to 3.0 from baseline of 1.5 in the setting of chronic stage 3 kidney disease. - On IV fluids currently with nephrology following. Plan: 1. Continue IV fluids and titrate based on volume status and electrolytes. 2. Avoid nephrotoxic medications. 3. Renal dosing of medications as needed. 4. Nephrology ton board 5. Renal US normal 6. SPEP pending COVID-19 Infection - Positive COVID-19 PCR on 05/11 - Started on dexamethasone 6 mg daily however this was stopped due to suspected steroid induced agitaition/mental status - After stopping he did improve. Plan: 1. Supportive care Acute Encephalopathy - Patient was very confused on arrival,. Etiology is multifactorial Plan: 1. Now confused but less agitated. Transaminitis - AST and ALT significantly elevated on 05/25/2024, trending down currently. - Negative hepatitis panel. - Liver ultrasound showing multiple simple cysts. - Possibly due to shock liver vs passive congestion Plan: 1. Trend liver function tests and monitor for signs of liver failure. 2. Avoid hepatotoxic medications. 3. Ammonia stable Disposition: -Plan to return to home with hospice at discharge. -Anticiapte dicharge in 2-3 days. PDMP PDMP Reviewed: Not Reviewed Attestations 2 Medical Necessity Statement*: Patient will need over 2 midnight stay for eval and treatment Coding Level of Care Code Acute Code for Chg Fwd Diagnoses Acute kidney injury superimposed on CKD N17.9; N18.9 Cardiomyopathy, dilated, nonischemic I42.0 Acute on chronic systolic congestive heart failure I50.23 Heart failure chronicity: acute on chronic Heart failure type: systolic Pulmonary hypertension I27.20 History of mitral valve replacement with bioprosthetic valve Z95.3 Longstanding persistent atrial fibrillation I48.11 Atrial fibrillation type: longstanding persistent COVID-19 U07.1 Hypoxemia R09.02 Weakness R53.1
[2024-05-29] VITALS (9 sets, daily range): BP systolic 86–146; BP diastolic 40–65; PULSE 50–82; RESP 14–18; TEMP 36.3–36.6; O2SAT 94–98
[2024-05-29] MEDS: acetaminophen 500 mg Tablet PO ×2 (01:12→06:19)
[2024-05-29 05:56] LABS: Basophils % 0.2 %; Eosinophils # 0.1 10^3/uL (0.0-0.8); Eosinophils % 1.9 %; Hematocrit 27.3 % (37-53); Lymphocytes # 0.9 10^3/uL (0.8-4.8); Lymphocytes % 14.5 %; Mean Corpuscular Hemoglobin 31.9 pg (27-33); Mean Corpuscular Volume 106.2 fl (82-101); Mean Platelet Volume 12.5 fL (7.4-10.4); Monocytes # 0.5 10^3/uL (0.2-0.9); Neutrophils # 4.69 10^3/uL (1.8-7.7); Neutrophils % 73.7 %; Nucleated Red Blood Cells # 0.1 /100WBC; Nucleated Red Blood Cells % 0.8 %; Platelet Count 186 10^3/cmm (157-399); Red Blood Count 2.57 10^6/uL (3.85-5.65); Red Cell Distribution Width 24.4 % (12.1-15.1); White Blood Count 6.36 10^3/uL (3.29-11.43)
[2024-05-29 06:13] LABS: Alanine Aminotransferase 469 U/L (0-41); Albumin Level 2.7 g/dL (3.5-5.2); Alkaline Phosphatase 61 U/L (40-130); Anion Gap 12.4 (5-19); Aspartate Amino Transferase 196 U/L (0-40); Calcium 8.4 mg/dL (8.5-10.5); Carbon Dioxide 25 mmol/L (22-29); Chloride 111 mmol/L (98-107); Creatinine Clr Calc Pharmacy 25.6503; Globulin 2.5 g/dL (1.3-4.6); Glucose 84 mg/dL (65-115); Magnesium 2.4 mg/dL (1.7-2.3); Osmolality Calculated 326 mOsm/kg (285-295); Phosphorus 4.3 mg/dL (2.5-4.5); Potassium 4.4 mmol/L (3.5-5.1); Sodium 144 mmol/L (136-145); Total Bilirubin 1.6 mg/dL (0.15-1.2); Total Protein 5.2 g/dL (6.6-8.7)
[2024-05-29 06:16] LABS: Blood Urea Nitrogen 94 mg/dL (8-23)
[2024-05-29] MEDS: midodrine 5 mg TABLET PO ×2 (07:51→17:17)
--- NOTE | 2024-05-29 09:23 | P.PN_ITS ---
Subjective 2 Subjective: feels better in bed, NARD. less nausea. dec edema. states he is eating Medications: Reviewed: Yes Medication Review Details: Current Medications Acetaminophen (Acetaminophen 500 Mg Tablet) 500 mg PO Q4H PRN PRN Reason: fever Last Admin: 05/29/24 06:19 Dose: 500 mg Albuterol/Ipratropium (Ipratropium-Albuterol 3 Ml Neb) 3 ml INHALATION Q6H PRN PRN Reason: SHORTNESS OF BREATH Alprazolam (Alprazolam 0.5 Mg Tablet) 0.5 mg PO Q12H PRN PRN Reason: ANXIETY Last Admin: 05/28/24 16:52 Dose: 0.5 mg Carvedilol (Carvedilol 6.25 Mg Tablet) 6.25 mg PO BID [facility] Last Admin: 05/28/24 16:52 Dose: 6.25 mg Dabigatran (Dabigatran 75 Mg Capsule) 75 mg PO BID [facility] Last Admin: 05/29/24 07:51 Dose: 75 mg Sodium Chloride (Sodium Chloride 0.45%) 1,000 mls @ 75 mls/hr IV .[id number] [facility] Last Admin: 05/28/24 22:18 Dose: 75 mls/hr Midodrine (Midodrine 5 Mg Tablet) 5 mg PO BID [facility] Last Admin: 05/29/24 07:51 Dose: 5 mg Ondansetron HCl (Ondansetron 2 Mg/Ml Sdv 2 Ml) 4 mg IVP Q6H PRN PRN Reason: NAUSEA AND VOMITING Senna/Docusate Sodium (Sennosides-Docusate Tablet) 1 tab PO DAILY [facility] Vitals/I&O/Wt Last Vital Signs Temp 97.3 F L 05/29/24 07:03 Pulse 57 L 05/29/24 08:50 Resp 16 05/29/24 08:50 BP 86/40 05/29/24 07:03 Pulse Ox 97 05/29/24 08:50 O2 Del Method Room Air 05/29/24 08:50 O2 Flow Rate 1.5 05/28/24 11:24 05/28/24 05/29/24 05/29/24 22:59 06:59 14:59 Intake Total 1085 / 1205 120 / 120 Output Total 625 / 975 250 / 250 Balance 1085 / 855 -625 / 230 -130 / -130 Weight last 48 hrs Weight 67.404 kg Weight 66.587 kg Physical Exam 2 Narrative: The patient appears thin in bed using nasal cannula oxygen. Vital signs noted.BP low The patient is awake, alert, interactive, oriented HEENT normocephalic atraumatic. Lungs -good air movement b/l Heart RRR, positive S1-S2. Abdomen is soft nontender nondistended positive bowel sounds. Extremities : + b/l ankle edema Urinary Catheter Management: Huber: Cath Placed During This Visit: yes Reason for Continuing Indwelling Catheter: Acute Urinary Retention or Obstruction Urinary Catheter Date of Insertion: 05/26/24 Urinary Catheter Time of Insertion: 18:30 Data 05/29/24 04:39 05/29/24 04:39 Micro: Microbiology 05/24/24 00:33 Blood Culture - Final Blood NO GROWTH AFTER 5 DAYS 05/24/24 00:29 Blood Culture - Final Blood NO GROWTH AFTER 5 DAYS A&P Assessment and plan (1) Acute kidney injury superimposed on CKD: 74-year-old gentleman history of heart failure reduced EF history of mitral valve replacement by porcine valve in 2016. History of aortic insufficiency, pulmonary hypertension iron deficiency anemia atrial fibrillation right hip replacement right knee replacement. Patient is here with COVID-19 and an acute on chronic exacerbation of heart failure reduced EF. 1. Patient has CKD stage III. Baseline creatinine is approximately 1.5 mg/dL. I do not have any old urinalyses. However urinalysis on admission was cloudy with trace protein 2+ blood trace leuk esterase. And 5-10 coarse granular casts with 9.9 hyaline cast consistent with possible ATN. PTH 200 2. Acute on chronic renal failure I am concerned for prerenal azotemia versus ATN versus hepatorenal syndrome versus others. normal renal ultrasound. mild rise in cr off of diuretics. Blood pressure is well-controlled. Albumin is okay at 3.2. -creatinine is improving w/ ivf- as urine chloride was low Check complements CELIA ANCA -hepatitis serologies are negative. -ck 1069- not high enough to cause CAROL 3. Hypernatremia patient is not drinking enough fluids. improved w/ hypotonic ivf 4. Anemia - iron sat of 79%- he is iron overloaded, ferritin 1442 - SPEP and immunofixation are pending. 5. normal ammonia level 6. leukocytosis improving 7. monitor hypotension The patient was seen and examined with the aid of a nurse using audiovisual equipment. Plan Please see above. PDMP PDMP Reviewed: Not Reviewed Attestations 2 Medical Necessity Statement*: per hospitalist Time Spent in Patient Care: 16 - 35 minutes Coding Level of Care Code Acute Code for Chg Fwd Diagnoses Acute kidney injury superimposed on CKD N17.9; N18.9
--- NOTE | 2024-05-29 09:56 | P.PN_ITS ---
Subjective 2 Subjective: 74-year-old male with a past medical his tory of paroxysmal atrial fibrillation, non-ischemic cardiomyopathy, valvular heart disease with aortic regurgitation, pulmonary hypertension, bioprosthetic mitral valve replacement for valvular heart disease in 2016, gout, and iron deficiency anemia presents with generalized weakness and fatigue for the past week. Patient was very confused. Unclear what is baseline was. Below information was obtained with review of records and discussion with staff. The patient was not feeling well for a week prior to arrival and initially came to the emergency room on 05/16/2024 with shortness of breath. He was noted to have tested positive for COVID-19 on 05/14/2024. At that time, he was suspected to have an anxiety attack and was discharged with alprazolam 0.25 mg TID PRN. Regarding his weakness, he was complaining that he was so weak he was not able to ambulate. Workup in the emergency room included an EKG which showed controlled atrial fibrillation. Chest X-ray showed cardiomegaly without pneumothorax, infiltrate, or consolidation. Labs showed WBC 6.4, hemoglobin 9.7, hematocrit 31, platelets 214, sodium 142, potassium 5.1, chloride 104, bicarbonate 23, BUN 43, and creatinine 1.5 (baseline around 1.5 due to chronic stage 3 kidney disease). Total bilirubin was mildly elevated at 1.9 with AST 32, ALT 11, and alkaline phosphatase 79. Troponin T was 100 at baseline, 101 at 120 minutes (delta 1.2), and 103 at 6 hours. Pro-BNP was significantly elevated at 38,557 compared to 10,280 on 04/15/2024. Urinalysis showed 2+ blood but was negative for leukocyte esterase and nitrites. COVID-19 PCR was positive, while RSV and influenza were negative. Chest X-ray in the ER revealed cardiomegaly with possible mild pulmonary vascular congestion, linear scarring , patchy infiltrates or atelectasis in the right mid lobe, and a suspected small right pleural effusion. In the emergency room, he was started on dexamethasone 6 mg PO daily for 10 days, given furosemide 40 mg once and continued at 40 mg daily, remdesivir 200 mg once, and continued on home medications including coricidin 2.25 mg BID and apixaban 75 mg BID. Digoxin was held due to elevated levels. A repeat echocardiogram was ordered. On room air, his oxygen saturation is 98% with a low-grade temperature of 99?F. Heart rate has trended up to 115 bpm despite carvedilol 6.25 mg BID. Blood pressure is 115/93. 05/25 Patient was noted to have increasing confusion discussed with son who stated this was new finding in the past week. He was noted to have an elevated dig level. today noted to have increasing creatinine. 05/26 at bedside. Noted to have very dark output, concern for bleeding. No fever, chills, nausea or vomiting. patient was still confused. sitter at bedside. 05/27 Patient was more alert however still confused. Had a lengthy discussion with patients family particularly his [id number] and son. They had requested a change in his code status pace tender prior discussions with patient that he wanted to be DNR. They had wanted to discharge home with hospice. Prior to discharge however they did want to continue current management and prior to his comfort. 05/28 No overnight clinical events. 05/29 Patient was more alert today and less confused however mental status wax and wanes. He was sitting in chair. No acute issues overnight. Medications: Reviewed: Yes Vitals/I&O/Wt Last Vital Signs Temp 97.3 F L 05/29/24 07:03 Pulse 57 L 05/29/24 08:50 Resp 16 05/29/24 08:50 BP 86/40 05/29/24 07:03 Pulse Ox 97 05/29/24 08:50 O2 Del Method Room Air 05/29/24 08:50 O2 Flow Rate 1.5 05/28/24 11:24 05/28/24 05/29/24 05/29/24 22:59 06:59 14:59 Intake Total 1085 / 1205 958.75 / 958.75 Output Total 625 / 975 250 / 250 Balance 1085 / 855 -625 / 230 708.75 / 708.75 Weight last 48 hrs Weight 67.404 kg Weight 66.587 kg Physical Exam 2 Narrative: Confused Nonlabored respiration RRR MIld LE edema with stasis dermatitis Nondistended abdomen No active chest pain Irregularly irregular Urinary Catheter Management: Huber: Cath Placed During This Visit: yes Reason for Continuing Indwelling Catheter: Acute Urinary Retention or Obstruction Urinary Catheter Date of Insertion: 05/26/24 Urinary Catheter Time of Insertion: 18:30 Data 05/29/24 04:39 05/29/24 04:39 Micro: Microbiology 05/24/24 00:33 Blood Culture - Final Blood NO GROWTH AFTER 5 DAYS 05/24/24 00:29 Blood Culture - Final Blood NO GROWTH AFTER 5 DAYS A&P Assessment and plan (1) Acute kidney injury superimposed on CKD: (2) Cardiomyopathy, dilated, nonischemic: (3) Congestive heart failure: Qualifiers: Heart failure chronicity: acute on chronic Heart failure type: systolic Qualified Code(s): I50.23 - Acute on chronic systolic (congestive) heart failure (4) Pulmonary hypertension: (5) History of mitral valve replacement with bioprosthetic valve: (6) Atrial fibrillation: Qualifiers: Atrial fibrillation type: longstanding persistent Qualified Code(s): I 48.11 - Longstanding persistent atrial fibrillation (7) COVID-19: (8) Hypoxemia: (9) Weakness: Plan Acute Encephalopathy - Patient was very confused on arrival,. Etiology is multifactorial given infection, elavated dig level, possible due to decadron and worsening renal failure Plan: 1. Mental status has been improving 2. Continue to monitor 3. Avoid sedative Acute Systolic Heart Failure Exacerbation POA - Worsening heart failure with ejection fraction decreased to 20% from 36% previously. - Significantly elevated pro-BNP at 38,557 compared to 10,280 on 04/15/2024. - Chest X-ray showing cardiomegaly with possible mild pulmonary vascular congestion. - Initially was started on IV lasix however stopped as patient was intravascularly depleted as noted with increasing renal dysfunction - Both cardiology and nephrology consulted. - Has been on IVF per nephrology for past few days - No further work up with cardiology Plan: 1. Continue to monitor daily weight, input and output. 2. Once stable from renal stand point, will need assessment for GDMT however limited given soft BP Atrial Fibrillation - EKG in ER showed controlled atrial fibrillation. - On Pradaxa 75 mg BID and carvedilol 6.25 mg BID at home. - Previously also on digoxin Plan: 1. Continue pradaxa however monitor for bleeding 2. Currently on coreg- this was held due to hypotention 3. Currently stable rates Acute on Chronic Renal Failure - Creatinine elevated to 3.0 from baseline of 1.5 in the setting of chronic stage 3 kidney disease. - On IV fluids currently with nephrology following. - Stated on midodrine 5 mg BID per nephrology Plan: 1. Continue IV fluids and titrate based on volume status and electrolytes. 2. Avoid nephrotoxic medications. 3. Renal dosing of medications as needed. 4. Nephrology ton board 5. Renal US normal 6. SPEP pending 7. Avoid hypotension COVID-19 Infection - Positive COVID-19 PCR on 05/11 - Started on dexamethasone 6 mg daily however this was stopped due to suspected steroid induced agitaition/mental status - After stopping he did improve. Plan: 1. Supportive care Transaminitis - AST and ALT significantly elevated on 05/25/2024, trending down currently. - Negative hepatitis panel. - Liver ultrasound showing multiple simple cysts. - Possibly due to shock liver vs passive congestion Plan: 1. Trend liver function tests and monitor for signs of liver failure. 2. Avoid hepatotoxic medications. 3. Ammonia stable Disposition: -Plan to return to home with hospice at discharge. - Discussed with family - opted to change code status to A.N.D in accordance with patients past wishes and requested hospice consult to arrange for home. PDMP PDMP Reviewed: Not Reviewed Attestations 2 Medical Necessity Statement*: Patient will need over 2 midnight stay for eval and treatment Coding Level of Care Code Acute Code for Chg Fwd Diagnoses Acute kidney injury superimposed on CKD N17.9; N18.9 Cardiomyopathy, dilated, nonischemic I42.0 Acute on chronic systolic congestive heart failure I50.23 Heart failure chronicity: acute on chronic Heart failure type: systolic Pulmonary hypertension I27.20 History of mitral valve replacement with bioprosthetic valve Z95.3 Longstanding persistent atrial fibrillation I48.11 Atrial fibrillation type: longstanding persistent COVID-19 U07.1 Hypoxemia R09.02 Weakness R53.1
[2024-05-29] MEDS: sodium chloride 0.45% 1,000 ML 50 ML IV (10:42)
[2024-05-29] MEDS: ALPRAZolam 0.5 mg Tablet PO (18:11)
[2024-05-29] MEDS: OLANZapine 10 mg VIAL IM (20:50)
[2024-05-29] MEDS: LORazepam 2 mg/mL INJ 1 mL 1 MG IVP (23:52)
--- NOTE | 2024-05-30 00:26 | PC.NURSE ---
Nash Cox is having increased anxiety and agitation again. Patient swung at the one on one sitter. Patient already received Alprazolam 0.5mg at 1811 and I am giving him PRN Tylenol now for back pain. Last B/P was 118/55 Sent 05/29 20:36 ? Read 05/29 20:37 Zyprexa 10 mg im Ema Vargas - Hospitalist ? 05/29 20:37 Nash Cox is getting agitated again, hollering out, trying to pull on their IV and goss catheter. and swinging at staff again. B/P of 146/65 Sent 05/29 23:43 ? Read 05/29 23:43 Try ativan 1 mg iv Ema Vargas - Hospitalist ? 05/29 23:43
[2024-05-30] MEDS: LORazepam 2 mg/mL INJ 1 mL IVP (00:54)
--- NOTE | 2024-05-30 00:57 | PC.NURSE ---
Nash Cox continues to try and pull at his IV and goss catheter. I gave the IVP of Ativan at 2352. I temporary unattached his fluids. He was receiving 0.45 Sodium Chloride at 50ml/h to see if the ativan needs more time. He continues to try and pull at goss catheter and hollering at nursing staff. Sent 00:37 ? Read 00:37 Needs goss ? Can we temove? 00:37 00:38 His BUN is 94 and Creatinine is 2.5. and possibly if there running Sent 00:38 ? Read 00:38 Well Ema Vargas - Hospitalist ? 00:39 He suppose to be going home with hospice tomorrow Sent 00:39 ? Read 00:39 Oh We can try high dose then Ativan 2 mg Ema Vargas - Hospitalist ? 00:40 Do you want me to remove the goss. It was also placed for accurate I&O due to his kidney function. I can always put a new one in later in the morning if need be as well Sent 00:42 He Kept pulling at the goss and screaming so I went ahead and took it out to prevent any damage or further complications at this moment in time until the ativan as more time to kick in Sent 00:53
[2024-05-30 04:00] VITALS: BP 118/58; PULSE 75; RESP 15; TEMP 36.4; O2SAT 97
[2024-05-30 05:14] VITALS: PULSE 63
[2024-05-30 07:16] VITALS: BP 130/67; PULSE 68; RESP 16; TEMP 36.4; O2SAT 99
[2024-05-30] MEDS: sodium chloride 0.45% 1,000 ML 50 ML IV (07:59)
[2024-05-30] MEDS: midodrine 5 mg TABLET PO (08:47)
[2024-05-30 10:19] VITALS: PULSE 80; RESP 16; O2SAT 95
--- NOTE | 2024-05-30 11:06 | PC.NURSE ---
This nurse gave patients , Corina, an update via phone at 1105am.
[2024-05-30 11:28] VITALS: BP 127/51; PULSE 71; RESP 18; TEMP 36.4; O2SAT 94
--- NOTE | 2024-05-30 12:57 | P.PN_ITS ---
Subjective 2 Subjective: Patient is lethargic on room air Medications: Reviewed: Yes Vitals/I&O/Wt Last Vital Signs Temp 97.5 F L 05/30/24 11:28 Pulse 71 05/30/24 11:28 Resp 18 05/30/24 11:28 BP 127/51 05/30/24 11:28 Pulse Ox 94 05/30/24 11:28 O2 Del Method Room Air 05/30/24 11:28 O2 Flow Rate 1.5 05/28/24 11:24 05/29/24 05/30/24 05/30/24 22:59 06:59 14:59 Intake Total 120 / 1379.583 705 / 2084.583 345 / 345 Output Total 400 / 650 450 / 1100 Balance -280 / 729.583 255 / 984.583 345 / 345 Weight last 48 hrs Weight 66.905 kg Weight 67.404 kg Physical Exam 2 Urinary Catheter Management: Huber: Cath Placed During This Visit: yes, but has since been removed by the nurse Reason for Continuing Indwelling Catheter: Accurate Measurement of Urinary Output in Critically Ill Patients Urinary Catheter Date of Insertion: 05/26/24 Urinary Catheter Time of Insertion: 18:30 Date Urinary Catheter Removed: 05/30/24 Time Urinary Catheter Discontinued: 00:58 Data 05/29/24 04:39 05/29/24 04:39 A&P Assessment and plan (1) Acute kidney injury superimposed on CKD: 74-year-old gentleman history of heart failure reduced EF history of mitral valve replacement by porcine valve in 2016. History of aortic insufficiency, pulmonary hypertension iron deficiency anemia atrial fibrillation right hip replacement right knee replacement. Patient is here with COVID-19 and an acute on chronic exacerbation of heart failure reduced EF. 1. Patient has CKD stage III. Baseline creatinine is approximately 1.5 mg/dL. His creatinine is improved with ivf 2. Acute on chronic renal failure I am concerned for prerenal azotemia versus ATN versus hepatorenal syndrome versus others. normal renal ultrasound. -creatinine is improving with ivf. cont gentle ivf until he is able to tolerated po intake - further work-up is pending -hepatitis serologies are negative. 3. Hypernatremia - cont hypotonic ivf 4. Anemia - iron sat of 79%- he is iron overloaded, ferritin 1442 - SPEP and immunofixation are pending. 5. normal ammonia level 6. leukocytosis improving 7. monitor hypotension PDMP PDMP Reviewed: Not Reviewed Attestations 2 Medical Necessity Statement*: zoila Time Spent in Patient Care: 25 minutes Coding Level of Care Code Acute Code for Chg Fwd Diagnoses Acute kidney injury superimposed on CKD N17.9; N18.9
[2024-05-30 14:00] LABS: KAPPA LIGHT CHAIN, FREE, SERUM 95.4 mg/L (3.3-19.4); KAPPA/LAMBDA LIGHT CHAINS FREE 1.18 (0.26-1.65)
[2024-05-30 15:04] LABS: ALPHA 1 GLOBULIN 0.4 g/dL (0.2-0.3); ALPHA 2 GLOBULIN 0.4 g/dL (0.5-0.9); BETA 1 GLOBULIN 0.3 g/dL (0.4-0.6); BETA 2 GLOBULIN 0.5 g/dL (0.2-0.5); GAMMA GLOBULIN 1.1 g/dL (0.8-1.7)
--- NOTE | 2024-05-30 15:17 | PC.NURSE ---
[facility] and informed her pt was being transferred from EMS to home at this time.
--- NOTE | 2024-05-30 15:39 | PM.DCS ---
Discharge Providers Date of Admission: 05/26/24 10:47 Date of Discharge: May 30, 2024 Attending Provider at Admission: Ema Vargas MD Attending Provider at Discharge: Aparna Santiago MD Primary Care Provider: Mally Neal MD Diagnoses at Discharge Discharge Diagnosis (1) Acute kidney injury superimposed on CKD: Status: Acute (2) Cardiomyopathy, dilated, nonischemic: Status: Acute (3) Congestive heart failure: Status: Acute Qualifiers: Heart failure chronicity: acute on chronic Heart failure type: systolic Qualified Code(s): I50.23 - Acute on chronic systolic (congestive) heart failure (4) Pulmonary hypertension: Status: Acute (5) Aortic regurgitation: Status: Acute Qualifiers: Cardiac valve disease etiology: nonrheumatic Qualified Code(s): I35.1 - Nonrheumatic aortic (valve) insufficiency (6) Atrial fibrillation with rapid ventricular response: Status: Acute (7) Hypoxemia: Status: Acute (8) COVID-19: Status: Acute Reason for Visit Reason for Visit: cp Hospital Course Hospital Course 74-year-old male with a past medical history of paroxysmal atrial fibrillation, non-ischemic cardiomyopathy, valvular heart disease with aortic regurgitation, pulmonary hypertension, bioprosthetic mitral valve replacement for valvular heart disease in 2016, gout, and iron deficiency anemia was admitted on 05/24/24 with generalized weakness and fatigue. Workup in the emergency room included an EKG which showed controlled atrial fibrillation. Chest X-ray showed cardiomegaly without pneumothorax, infiltrate, or consolidation. Labs showed WBC 6.4, hemoglobin 9.7, hematocrit 31, platelets 214, sodium 142, potassium 5.1, chloride 104, bicarbonate 23, BUN 43, and creatinine 1.5 (baseline around 1.5 due to chronic stage 3 kidney disease). Total bilirubin was mildly elevated at 1.9 with AST 32, ALT 11, and alkaline phosphatase 79. Troponin T was 100 at baseline, 101 at 120 minutes (delta 1.2), and 103 at 6 hours. Pro-BNP was significantly elevated at 38,557 compared to 10,280 on 04/15/2024. Urinalysis showed 2+ blood but was negative for leukocyte esterase and nitrites. COVID-19 PCR was positive, while RSV and influenza were negative. he was started on dexamethasone 6 mg PO daily for 10 days, given furosemide 40 mg once and continued at 40 mg daily, remdesivir 200 mg once, and continued on home medications. Digoxin was held due to elevated levels. Patient was noted to have increasing confusion and his mental status continued to wax and wane during the hospital course. He continued to be awake and alert however persistently confused during the hospital stay.Given his multiple comorbidities and overall poor long-term prognosis family elected to transition him to hospice management. Patient is being discharged today with home on hospice after necessary arrangements have been made at home. His vital signs and labs remained stable today, however overall patient is clinically very weak and deconditioned. He needed to be given IV Ativan, oral Xanax and 10 mg IM Zyprexa overnight. Physical Exam Narrative: General: No acute distress, AO x1 HEENT: PERRLA, pupils bilaterally equal and reactive, pallors not present Chest: Normal vesicular breath sounds, no added sounds, equal good air entry bilaterally CVS: holosystolic murmur Abdomen: Soft, nontender, no organomegaly, bowel sounds present Neuro: somnolent, moves extremities in bed however very sleepy and lethargic Urinary Catheter Management: Huber: Cath Placed During This Visit: yes, but has since been removed by the nurse Reason for Continuing Indwelling Catheter: Accurate Measurement of Urinary Output in Critically Ill Patients Urinary Catheter Date of Insertion: 05/26/24 Urinary Catheter Time of Insertion: 18:30 Date Urinary Catheter Removed: 05/30/24 Time Urinary Catheter Discontinued: 00:58 Discharge Data Studies Completed and Pending Completed Studies During Hospitalization Category Date Time Status XR chest 1V portable [id number] Stat Exams 05/23/24 23:39 Completed CV. echo complete* [id number] Routine Ultrasound 05/24/24 13:02 [place] liver [id number] Routine Ultrasound 05/25/24 21:09 Completed US renal BI* [id number] Routine Ultrasound 05/26/24 13:38 Completed Pending at discharge Category Date Time Status CELIA Screen w/ Reflex Routine Lab 05/26/24 15:06 Received Anti-Neutrophil Cytoplasmic AB Routine Lab 05/26/24 15:06 Received Immunofixation Serum Routine Lab 05/26/24 15:06 Received Vitamin D 1,25 Dihydroxy Routine Lab 05/26/24 15:06 Received Radiology Impressions Chest X-Ray 05/23/24 23:39 IMPRESSION: 1. Cardiomegaly with possible mild central vascular congestion. 2. Linear scarring or atelectasis involving the right mid and lower lung. 3. Patchy infiltrate or atelectasis involving the right mid lung. 4. Suspect small right pleural effusion. Liver Ultrasound 05/25/24 21:09 Impression: 1. Multiple simple cysts of the liver with normal portal venous flow and heterogeneous echotexture. 2. Thinned cortex of the right kidney. 3. Small right pleural effusion. Renal Ultrasound 05/26/24 13:38 IMPRESSION: Unremarkable kidneys and bladder. Laboratory Results WBC 6.36 10^3/uL (3.29-11.43) 05/29/24 04:39 RBC 2.57 10^6/uL (3.85-5.65) L 05/29/24 04:39 Hgb 8.20 g/dL (11.27-16.99) L 05/29/24 04:39 Hct 27.3 % (37-53) L 05/29/24 04:39 MCV 106.2 fl (82-101) H 05/29/24 04:39 MCH 31.9 pg (27-33) 05/29/24 04:39 MCHC 30.0 g/dL (30-55) 05/29/24 04:39 RDW 24.4 % (12.1-15.1) H 05/29/24 04:39 Plt Count 186 10^3/cmm (157-399) 05/29/24 04:39 MPV 12.5 fL (7.4-10.4) H 05/29/24 04:39 Neut % (Auto) 73.7 % 05/29/24 04:39 Lymph % (Auto) 14.5 % 05/29/24 04:39 [place] % (Auto) 8.0 % 05/29/24 04:39 Eos % (Auto) 1.9 % 05/29/24 04:39 Baso % (Auto) 0.2 % 05/29/24 04:39 Reticulocyte % (Auto) 5.6 % (0.5-2.0) H 05/26/24 01:20 Neut # (Auto) 4.69 10^3/uL (1.8-7.7) 05/29/24 04:39 Lymph # (Auto) 0.9 10^3/uL (0.8-4.8) 05/29/24 04:39 [place] # (Auto) 0.5 10^3/uL (0.2-0.9) 05/29/24 04:39 Eos # (Auto) 0.1 10^3/uL (0.0-0.8) 05/29/24 04:39 Baso # (Auto) 0.0 10^3/uL (0.0-0.1) 05/29/24 04:39 Nucleated RBC % (auto) 0.8 % 05/29/24 04:39 Nucleated RBCs # 0.1 /100WBC 05/29/24 04:39 Peripher Smr Path Cons Sent for review 05/26/24 01:20 Haptoglobin 10.0 mg/L (30-200) L 05/26/24 01:20 Specimen Type Arterial 05/26/24 14:20 Sample Site Radial, right 05/26/24 14:20 ABG pH 7.41 (7.35-7.45) 05/26/24 14:20 ABG pCO2 34.7 mmHg (35-45) L 05/26/24 14:20 ABG pO2 108.0 mmHg (80.0-100.0) H 05/26/24 14:20 ABG PO2/FiO2 Ratio 385 05/26/24 14:20 ABG HCO3 21.8 mmol/L (22-26) L 05/26/24 14:20 ABG O2 Saturation 99.0 05/26/24 14:20 ABG Base Excess -2.4 mmol/L (-2.0-2.0) L 05/26/24 14:20 Kurtis Test Pos 05/26/24 14:20 A-a O2 Gradient 5.8 mmHg (5-10) 05/26/24 14:20 Hematocrit 28.3 % (42-52) L 05/26/24 14:20 Hgb O2 Saturation 96.0 % (95-100) 05/26/24 14:20 Carboxyhemoglobin 2.4 %THgb (0.4-20.1) 05/26/24 14:20 Methemoglobin 0.6 % (0.4-1.5) 05/26/24 14:20 Total Hemoglobin 9.2 g/dL (14-18) L 05/26/24 14:20 Sodium 142.0 mmol/L (131-143) 05/26/24 14:20 Potassium 4.5 mmol/L (3.5-5.0) 05/26/24 14:20 Glucose 167.0 mg/dL (70-115) H 05/26/24 14:20 Ionized Calcium 1.2 mmol/L (1.1-1.4) 05/26/24 14:20 O2 Delivery Device Nc 05/26/24 14:20 O2 Liters/Min 2.0 % 05/26/24 14:20 FiO2 28.0 % 05/26/24 14:20 Varnish Maker Helper ID glc 05/26/24 14:20 Sodium 144 mmol/L (136-145) 05/29/24 04:39 Potassium 4.4 mmol/L (3.5-5.1) 05/29/24 04:39 Chloride 111 mmol/L (98-107) H 05/29/24 04:39 Carbon Dioxide 25 mmol/L (22-29) 05/29/24 04:39 Anion Gap 12.4 (5-19) 05/29/24 04:39 BUN 94 mg/dL (8-23) H* 05/29/24 04:39 Creatinine 2.5 mg/dL (0.7-1.2) H 05/29/24 04:39 GFR Calculation Not Reportable 05/29/24 04:39 Glucose 84 mg/dL (65-115) 05/29/24 04:39 Calculated Osmolality 326 mOsm/kg (285-295) H 05/29/24 04:39 Lactic Acid 2.0 mmol/L (0.5-2.2) 05/23/24 23:14 Uric Acid 18.8 mg/dL (3.4-7.0) H 05/26/24 01:20 Calcium 8.4 mg/dL (8.5-10.5) L 05/29/24 04:39 Phosphorus 4.3 mg/dL (2.5-4.5) 05/29/24 04:39 Magnesium 2.4 mg/dL (1.7-2.3) H 05/29/24 04:39 Iron 107 ug/dL (59-158) 05/27/24 02:15 TIBC 135 mcg/dl 05/27/24 02:15 % Saturation 79.2 % (20-50) H 05/27/24 02:15 Unsat Iron Binding 28 ug/dL (112-347) L 05/27/24 02:15 Ferritin 1442 ng/mL (30-400) H 05/27/24 02:15 Total Bilirubin 1.6 mg/dL (0.15-1.2) H 05/29/24 04:39 AST 196 U/L (0-40) H 05/29/24 04:39 ALT 469 U/L (0-41) H 05/29/24 04:39 Alkaline Phosphatase 61 U/L (40-130) 05/29/24 04:39 Ammonia 41 umol/L (16-60) 05/27/24 09:36 Lactate Dehydrogenase 2264 U/L (135-225) H 05/26/24 01:20 Creatine Kinase 1069 U/L (39-308) H* 05/26/24 01:20 Troponin T Baseline 100 ng/L (0-15) H 05/23/24 23:14 Troponin T 120 Minute 101.2 ng/L (0-15) H 05/24/24 00:40 Delta Troponin T 1.2 ABS# (0-10) 05/24/24 00:40 Troponin T Hi Sens 6Hr 103.5 ng/L (0-15) H 05/24/24 05:47 Troponin T Hi Sens 6Hr Delta 3.5 ng/L (0-12) 05/24/24 05:47 C-Reactive Protein 30.1 mg/L (0.0-4.9) H 05/26/24 01:20 NT-Pro-B Natriuret Pep 29626 pg/mL (0-450) H 05/23/24 23:14 Total Protein 5.2 g/dL (6.6-8.7) L 05/29/24 04:39 Albumin 2.7 g/dL (3.5-5.2) L 05/29/24 04:39 Globulin 2.5 g/dL (1.3-4.6) 05/29/24 04:39 Rkdhs-6-Jdowqhdrn 0.4 g/dL (0.2-0.3) H 05/26/24 15:06 Zrtes-6-Vxsvkedho 0.4 g/dL (0.5-0.9) L 05/26/24 15:06 Gnve-5-Gwnyfieh 0.3 g/dL (0.4-0.6) L 05/26/24 15:06 Zrtm-6-Kfipplvl 0.5 g/dL (0.2-0.5) 05/26/24 15:06 Gamma Globulins 1.1 g/dL (0.8-1.7) 05/26/24 15:06 Abnorm Protein Band 1 Not Reportable 05/26/24 15:06 25-OH Vitamin D Total 32 ng/mL (30-100) 05/27/24 02:15 Procalcitonin 0.43 ng/mL (0-0.5) 05/26/24 01:20 PTH Intact 199.8 pg/mL (15-65) H 05/27/24 02:15 Calcium (PTH Intact) 8.4 mg/dL (8.5-10.5) L 05/27/24 02:15 Urine Color Yellow (Yellow) 05/26/24 18:15 Urine Appearance Clear (CLEAR) 05/26/24 18:15 Urine pH 5.0 (5-7) 05/26/24 18:15 Ur Specific [place] 1.017 (1.005-1.030) 05/26/24 18:15 Urine Protein Trace (Negative) A 05/26/24 18:15 Urine Glucose (UA) Negative (Normal) 05/26/24 18:15 Urine Ketones Trace (Negative) 05/26/24 18:15 Urine Blood Non-haemolysed trace (Negative) 05/26/24 18:15 Urine Nitrate Negative (Negative) 05/26/24 18:15 Urine Bilirubin Negative (Negative) 05/26/24 18:15 Urine Urobilinogen 1.0 mg/dL (Negative) 05/26/24 18:15 Ur Leukocyte Esterase Negative (Negative) 05/26/24 18:15 Urine RBC 0-2 /hpf (0-2) 05/26/24 18:15 Urine WBC 0-5 /hpf (0-5) 05/26/24 18:15 Ur Squamous Epith Cells 6-10 /hpf (0-5) 05/26/24 18:15 Amorphous Sediment Not Reportable 05/26/24 18:15 Urine Bacteria None seen /hpf (NONE) 05/26/24 18:15 Hyaline Casts 19.83 /lpf 05/26/24 18:15 Fine Granular Casts 10-15 /lpf H 05/26/24 18:15 Coarse Granular Casts 5-10 /lpf H 05/24/24 00:25 Ur Random Sodium 37 mmol/L 05/26/24 18:15 Ur Random Potassium 45 mmol/L 05/26/24 18:15 Ur Random Chloride < 10 mmol/L 05/26/24 18:15 Ur Random Chloride < 10 mmol/L 05/26/24 18:15 Urine Creatinine 105 mg/dL (39-259) 05/26/24 18:15 U Abnormal Prot Band 2 Not Reportable 05/26/24 15:06 U Abnormal Prot Band 3 Not Reportable 05/26/24 15:06 Digoxin 1.2 ng/mL (0.6-1.2) 05/25/24 04:16 Pro Electrophoresis Int See note 05/26/24 15:06 Anti-ds DNA IgG Ab <1 IU/mL 05/26/24 15:06 Free [place] Light Chains 95.4 mg/L (3.3-19.4) H 05/26/24 15:06 Free Lambda Light Chain 81.0 mg/L (5.7-26.3) H 05/26/24 15:06 Free [place]/Lambda Ratio 1.18 (0.26-1.65) 05/26/24 15:06 C. difficile (PCR) Negative (Negative) 05/26/24 15:40 Hep Bs Antigen Non-reactive (Nonreactive) 05/26/24 01:20 Hep Bs Antibody < 3.5 (11.5-1000) L 05/26/24 01:20 Hep B Core Total Ab Non-reactive (Nonreactive) 05/26/24 01:20 Hepatitis C Antibody Non-reactive (Nonreactive) 05/26/24 01:20 Influenza A (PCR) Negative (Negative) 05/24/24 00:25 Influenza Type B (PCR) Negative (Negative) 05/24/24 00:25 RSV (PCR) Negative (Negative) 05/24/24 00:25 SARS-CoV-2 (PCR) Positive (Negative) A 05/24/24 00:25 Vitals Last Vital Signs Temp 97.5 F L 05/30/24 11:28 Pulse 71 05/30/24 11:28 Resp 18 05/30/24 11:28 BP 127/51 05/30/24 11:28 Pulse Ox 94 05/30/24 11:28 O2 Del Method Room Air 05/30/24 11:28 O2 Flow Rate 1.5 05/28/24 11:24 Discharge Plan Discharge Patient Disposition: Hospice - Home Condition: Stable Prescriptions: Continued carvedilol [Coreg] 6.25 mg tablet 6.25 mg PO BID Qty: 180 3RF trazodone 100 mg tablet 50 mg PO BEDTIME hydroxyzine HCl 25 mg tablet 25 mg PO Q6H PRN (Reason: Anxiety/sleep) Qty: 10 0RF alprazolam 0.25 mg tablet 0.25 mg PO TID PRN (Reason: anxiety) Qty: 14 0RF buspirone 10 mg Tablet 5 mg PO DAILY colchicine 0.6 mg Tablet 0.3 mg PO DAILY PRN (Reason: gout) Rx Instructions: Take one-half tablet by mouth once daily for gout flare ups .Stop med and contact Provider at first sign of nausea ,vomiting , or diarrhea. Discontinued Pradaxa 75 mg capsule 75 mg PO BID furosemide 40 mg tablet 60 mg PO DAILY Qty: 180 3RF Entresto 24-26 mg tablet 1.5 tab PO BID Qty: 270 3RF digoxin 125 mcg (0.125 mg) tablet 125 mcg PO DIRECTED Qty: 90 3RF Rx Instructions: Take 1 tablet by mouth daily on Thursday through Thursday, none on Thursday or Thursday. Discharge Orders: Discharge Order (Routine); Ordered 05/30/24 Ordered By: Aparna Santiago Referrals: Mally Neal MD [Primary Care Provider] - 06/16/24 8:30 am Patient Instructions: Heart Failure (DC), Chronic Kidney Disease (DC), CHF Stoplight Discharge Attestations Time Spent in Discharge Care*: greater than 30 min Quality Metrics Clinical Quality Measures [ No reported AMI, CVA or VTE this stay] Coding Level of Care Code Acute Code for Chg Fwd Diagnoses Acute kidney injury superimposed on CKD N17.9; N18.9 Cardiomyopathy, dilated, nonischemic I42.0 Acute on chronic systolic congestive heart failure I50.23 Heart failure chronicity: acute on chronic Heart failure type: systolic Pulmonary hypertension I27.20 Nonrheumatic aortic valve insufficiency I35.1 Cardiac valve disease etiology: nonrheumatic Atrial fibrillation with rapid ventricular response I48.91 Hypoxemia R09.02 COVID-19 U07.1
[2024-05-30 17:24] LABS: Immunofixation Serum Normal pattern.
[2024-05-31 13:14] LABS: Anti-Nuclear Antibody Screen NEGATIVE (NEGATIVE)
[2024-05-31 13:50] LABS: ANCA Screen NEGATIVE (NEGATIVE)
[2024-06-01 13:38] LABS: Vit D 1,25 (Oh)2, Total 17 pg/mL (18-72); Vit D2 1,25 (Oh)2 <8 pg/mL; Vit D3 1,25 (Oh)2 17 pg/mL
== END 2024-05-30 15:32 | disposition hospice, home (50) | DRG 177 ==
LOC: ER 05-24 01:47 → ER IP 05-24 01:57 → MEDSURG 05-24 12:59
PROVIDERS: Hospitalist; Internal Medicine Nephrology; Admitting Provider Internal Medicine; Emergency Provider Emergency Medicine; PCP Family Medicine; Visit Provider Student in an Organized Health Care Education/Training Program
DX: U07.1 COVID-19 (principal); G92.8 Other toxic encephalopathy; I50.23 Acute on chronic systolic (congestive) heart failure; N17.9 Acute kidney failure, unspecified; I42.0 Dilated cardiomyopathy; I48.11 Longstanding persistent atrial fibrillation; I24.89 Other forms of acute ischemic heart disease; I47.10 Supraventricular tachycardia, unspecified; N18.30 Chronic kidney disease, stage 3 unspecified; I27.20 Pulmonary hypertension, unspecified; I35.1 Nonrheumatic aortic (valve) insufficiency; R09.02 Hypoxemia; Z95.3 Presence of xenogenic heart valve; M10.9 Gout, unspecified; D50.9 Iron deficiency anemia, unspecified; Z79.01 Long term (current) use of anticoagulants; Z96.651 Presence of right artificial knee joint; E87.5 Hyperkalemia; Z66 Do not resuscitate; K76.89 Other specified diseases of liver
CPT/HCPCS: 36415; 36600; 51702; 71045; 76705; 76770; 80048; 80051; 80053; 80162; 80503; 81001; 82140; 82274; 82306; 82310; 82330; 82436; 82550; 82570; 82652; 82728; 82805; 83010; 83540; 83550; 83605; 83615; 83735; 83880; 83883; 83970; 84100; 84133; 84145; 84155; 84165; 84300; 84484; 84550; 85025; 85045; 86036; 86038; 86140; 86225; 86334; 86705; 86706; 86803; 87040; 87340; 87493; 87637; 92610; 93005; 93306; 94664; 96365; 96372; 96375; 97110; 97161; 97162; 97530; 99285; G0378; J1100; J1940; J2060; J3490; J7120; J9999; Q3014